=== PATIENT | male | born 1965 | race Caucasian/White ===

== ENCOUNTER 2018-12-24 11:56 | Emergency (ER) | payer MEDICAID, OTHER ==
[2018-12-24 12:31] VITALS: RESP 18
[2018-12-24] MEDS ORDERED: SODIUM CHLORIDE 0.9% 1,000 ML IV STA (12:56)
[2018-12-24 13:35] LABS: Basophils % (A) 1 %; Eosinophils # (A) 0.1 k/uL (0-0.7); Eosinophils % (A) 2 %; HCT 42.7 % (39.0-53.0); HGB 14.1 gm/dL (13.0-17.5); Lymphocytes # (A) 1.8 k/uL (1.0-4.8); Lymphocytes % (A) 25 %; MCH 29.2 pg (25.0-35.0); MCHC 32.9 g/dL (31.0-37.0); MCV 88.8 fL (80.0-100.0); Mean Platelet Volume 6.5; Monocytes # (A) 0.4 k/uL (0-1.0); Monocytes % (A) 5 %; Neutrophils # (A) 4.6 k/uL (1.3-7.7); Neutrophils % (A) 65 %; Platelet Count 390 k/uL (150-450); RBC 4.81 m/uL (4.30-5.90); WBC 7.1 k/uL (3.8-10.6)
--- NOTE | 2018-12-24 13:38 | XR ---
EXAMINATION TYPE: XR KUB DATE OF EXAM: 12/24/2018 CLINICAL DATA: 53-year-old male with upper abdominal pain, PH[facility] COMPARISON: None FINDINGS: Lung bases are clear. No evidence for free intraperitoneal air. No dilated small bowel or differential air-fluid levels. Prominent small bowel loop within the left u pper quadrant measuring up to 2.8 cm. Overall mild stool burden. No suspicious calcifications identified. IMPRESSION: 1. Nonobstructive bowel gas pattern. No evidence for free air. 2. A single borderline distended left upper quadrant small bowel loop may be transient or could refle ct a regional ileus or enteritis.
--- NOTE | 2018-12-24 13:47 | ED ---
Abdominal Pain HPI - General Chief Complaint: Abdominal Pain Stated Complaint: ABDOMINAL PAIN Time Seen by Provider: 12/24/18 12:27 Source: patient Mode of arrival: ambulatory Limitations: no limitations - History of Present Illness Initial Comments: Patient is a 53-year-old male presents emergency Department with left upper quadrant and right upper quadrant burning pain. Patient reports he developed a burning sensation that initially started in the left upper quadrant approximately 2 months ago so he went to the emergency room and was diagnosed wi th acid reflux and prescribed omeprazole. Patient also established care with a primary care physician who prescribed Pepcid. Patient reports taking both medication with minimal improvement. Patient reports occasionally the pain radiates to the right upper quadrant. Patient also reports intermittent left- sided lumbar pain. Patient reports the pain is not related to solid food or liquid intake. Patient denies fever or diarrhea but does report nausea and vomiting. Patient reports he has an appointment with a athletic coordinator in 2 weeks but states that he is unable to control the pain. Patient reports typically eats very late at night and does not sleep with the bed elevated. Patient reports occasionally taking ibuprofen to control the pain. Patient denies testicular pain, urinary or obstructive symptoms. - Related Data Home Medications Medication Instructions Recorded Confirmed Cimetidine [Tagamet] 200 mg PO BID 12/24/18 12/24/18 Famotidine [Pepcid] 20 mg PO BID 12/24/18 12/24/18 Ibuprofen [Motrin Ib] 400 mg PO Q8H PRN 12/24/18 12/24/18 Omeprazole 40 mg PO DAILY 12/24/18 12/24/18 Previous Rx's Medication Instructions Recorded Ondansetron Odt [Zofran Odt] 4 mg PO Q8HR PRN #10 tab 12/24/18 Allergies Allergy/AdvReac Type Severity Reaction Status Date / Time No Known Allergies Allergy Unverified 12/24/18 12:32 Review of Systems ROS Statement: Those systems with pertinent positive or pertinent negative responses have been documented in the HPI. ROS Other: All systems not noted in ROS Statement are negative. Past Medical History Past Medical History: GERD/Reflux History of Any Multi-Drug Resistant Organisms: None Reported Past Surgical History: No Surgical Hx Reported Past Psychological History: No Psychological Hx Reported Smoking Status: Current every day smoker Past Alcohol Use History: None Reported Past Drug Use History: Marijuana General Exam Limitations: no limitations General appearance: alert, in no apparent distress Head exam: Present: atraumatic, normocephalic, normal inspection Eye exam: Present: normal appearance, PERRL, EOMI Pupils: Present: normal accommodation ENT exam: Present: normal exam, mucous membranes moist, TM's normal bilaterally Neck exam: Present: normal inspection, full ROM Respiratory exam: Present: normal lung sounds bilaterally Cardiovascular Exam: Present: regular rate, normal rhythm, normal heart sounds GI/Abdominal exam: Present: soft, normal bowel sounds. Absent: distended, tende rness, guarding, rebound, other ( McBurney point tenderness, Mckenzie's sign, rebound tenderness, psoas or Rovsing sign.) Extremities exam: Present: normal inspection, full ROM Back exam: Present: normal inspection, full ROM, tenderness (Mild left). A bsent: CVA tenderness (R), CVA tenderness (L) Neurological exam: Present: alert, oriented X3 Psychiatric exam: Present: normal affect, normal mood Skin exam: Present: warm, intact, normal color Course Vital Signs 12/24/18 12/24/18 12:21 15:55 Temperature 97.4 F L 98.4 F Pulse Rate 94 91 Respiratory 18 18 Rate Blood Pressure 154/107 131/99 O2 Sat by Pulse 99 99 Oximetry Medical Decision Making - Medical Decision Making Patient is a 53-year-old male presents emergency Department with left and right upper quadrant burning sensation for 2 months. KUB is suggestive of a nonobstructive bowel gas pattern with no evidence of free air. A single borderline distended left upper quadrant bowel could represent an ileus or enteritis. CBC, CMP and UA are unremarkable. Patient was given a liter of fluids. Patient was given a GI cocktail and states that his symptoms improved over a short period of time. Based on the results of the GI cocktail I suspect the patient to have an underlying gastroenteric pathology. Patient advised to follow up with GI for further evaluation. Patient advised to keep that elevated at night and eat at least 3-4 hours prior to sleep. Patient advised not to eat fatty food, drinking coffee or alcohol. Patient was prescribed Zofran to control nausea. Patient advised to return to emergency department if symptoms worsen. Case was discussed with Dr. Coelho who also examined the patient and is in agreement with the treatment plan. - Lab Data Result diagrams: 12/24/18 13:15 12/24/18 13:15 Lab Results 12/24/18 12/24/18 12/24/18 Range/Units 13:15 13:15 14:52 WBC 7.1 (3.8-10.6) k/uL RBC 4.81 (4.30-5.90) m/uL Hgb 14.1 (13.0-17.5) gm/dL Hct 42.7 (39.0-53.0) % MCV 88.8 (80.0-100.0) fL MCH 29.2 (25.0-35.0) pg MCHC 32.9 (31.0-37.0) g/dL RDW 13.0 (11.5-15.5) % Plt Count 390 (150-450) k/uL Neutrophils % 65 % Lymphocytes % 25 % Monocytes % 5 % Eosinophils % 2 % Basophils % 1 % Neutrophils # 4.6 (1.3-7.7) k/uL Lymphocytes # 1.8 (1.0-4.8) k/uL Monocytes # 0.4 (0-1.0) k/uL Eosinophils # 0.1 (0-0.7) k/uL Basophils # 0.0 (0-0.2) k/uL Sodium 139 (137-145) mmol/L Potassium 4.6 (3.5-5.1) mmol/L Chloride 106 (98-107) mmol/L Carbon Dioxide 24 (22-30) mmol/L Anion Gap 9 mmol/L BUN 12 (9-20) mg/dL Creatinine 0.68 (0.66-1.25) mg/dL Est GFR (CKD-EPI)AfAm >90 (>60 ml/min/1.73 sqM) Est GFR (CKD-EPI)NonAf >90 (>60 ml/min/1.73 sqM) Glucose 100 H (74-99) mg/dL Calcium 9.9 (8.4-10.2) mg/dL Total Bilirubin 0.7 (0.2-1.3) mg/dL AST 16 L (17-59) U/L ALT 15 L (21-72) U/L Alkaline Phosphatase 102 (38-126) U/L Total Protein 7.8 (6.3-8.2) g/dL Albumin 4.6 (3.5-5.0) g/dL Amylase 81 (30-110) U/L Lipase 216 (23-300) U/L Urine Color Yellow Urine Appearance Clear (Clear) Urine pH 6.5 (5.0-8.0) Ur Specific Robinson 1.024 (1.001-1.035) Urine Protein Trace H (Negative) Urine Glucose (UA) Negative (Negative) Urine Ketones 1+ H (Negative) Urine Blood Negative (Negative) Urine Nitrite Negative (Negative) Urine Bilirubin Negative (Negative) Urine Urobilinogen <2.0 (<2.0) mg/dL Ur Leukocyte Esterase Negative (Negative) Disposition Clinical Impression: Abdominal pain Disposition: HOME SELF-CARE Condition: Stable Instructions (If sedation given, give patient instructions): Abdominal Pain (ED) Additional Instructions: Please take prescribed medication as directed. Please follow with a athletic coordinator. Please follow-up with primary care. Patient to emergency department if symptoms worsen. Prescriptions: Ondansetron Odt [Zofran Odt] 4 mg PO Q8HR PRN #10 tab PRN Reason: Nausea Is patient prescribed a controlled substance at d/c from ED?: No Referrals: Douglas Sánchez MD [Primary Care Provider] - 1-2 days Time of Disposition: 15:48
[2018-12-24 13:49] LABS: ALT 15 U/L (21-72); AST 16 U/L (17-59); African American GFR (CKD) >90 (>60 ml/min/1.73 sqM); Albumin 4.6 g/dL (3.5-5.0); Alkaline Phosphatase 102 U/L (38-126); Amylase 81 U/L (30-110); Anion Gap 9 mmol/L; Blood Urea Nitrogen 12 mg/dL (9-20); Calcium 9.9 mg/dL (8.4-10.2); Carbon Dioxide 24 mmol/L (22-30); Chloride 106 mmol/L (98-107); Glucose 100 mg/dL (74-99); Lipase 216 U/L (23-300); Potassium 4.6 mmol/L (3.5-5.1); Sodium 139 mmol/L (137-145); Total Bilirubin 0.7 mg/dL (0.2-1.3); Total Protein 7.8 g/dL (6.3-8.2)
[2018-12-24] MEDS ORDERED: MAG HYDROX/AL HYDROX/SIMETH 30 ML, HYOSCYAMINE ELIXIR 10 ML, CIMETIDINE HCL 300 MG, LID... PO STA ×4 (14:16)
[2018-12-24 15:03] LABS: Appearance,Urine Clear (Clear); Bilirubin,Urine Negative (Negative); Blood,Urine Negative (Negative); Color,Urine Yellow; Glucose,Urine (UA) Negative (Negative); Ketones,Urine 1+ (Negative); Leukocyte Esterase,Urine Negative (Negative); Nitrite,Urine Negative (Negative); PH, Urine 6.5 (5.0-8.0); Protein,Urine Trace (Negative); Specific Gravity,Urine 1.024 (1.001-1.035); Urobilinogen,Urine <2.0 mg/dL (<2.0)
[2018-12-24 15:56] VITALS: BP 131/99; PULSE 91; TEMP 98.4
== END 2018-12-24 15:56 | disposition home or self-care (01) ==
LOC: EC 11:56
DX: R10.11 Right upper quadrant pain (principal); R10.12 Left upper quadrant pain; M54.5 Low back pain; K21.9 Gastro-esophageal reflux disease without esophagitis; F17.200 Nicotine dependence, unspecified, uncomplicated; Z79.899 Other long term (current) drug therapy
CPT/HCPCS: 36415; 74018; 80053; 81003; 82150; 83690; 85025; 96360; 99284

== ENCOUNTER 2019-01-13 22:02 | Emergency (ER) | payer MEDICAID ==
[2019-01-13] MEDS ORDERED: IOPAMIDOL-300 CONTRAST 30 ML VIAL (ORAL USE) PO PRN (23:08)
[2019-01-13] MEDS ORDERED: MORPHINE SULFATE 4 MG/ML SYRINGE IV STA (23:08)
[2019-01-13] MEDS ORDERED: SODIUM CHLORIDE 0.9% 1,000 ML IV STA (23:08)
--- NOTE | 2019-01-13 23:18 | ED ---
Abdominal Pain HPI - General Chief Complaint: Abdominal Pain Stated Complaint: Abd pain Time Seen by Provider: 01/13/19 22:24 Source: patient, family Mode of arrival: ambulatory Limitations: no limitations - History of Present Illness Initial Comments: 's patient is a 53-year-old man who presents to be evaluated for abdominal pain. The patient states that his symptoms probably started around Easter with some mild intermittent upper abdominal or epigastric discomfort. He states that it did seem to affect his ability to eat. He was also having some intermittent nausea and occasional vomiting. The patient states that things eventually got bad enough that around 6 weeks ago he obtained a physician and was seen. He was started on omeprazole which didn't really improve his symptoms much, and he states he was given referral to food general manager but states that he has not been able to see that doctor yet. He subsequently went to [facility] where he had some lab tests sent and reportedly had a bedside ultrasound which was not remarkable. His nausea vomiting and abdominal pain worsened and he was seen here, where he had lab tests and then was to follow with the food general manager. He states that added Pepcid but that has not helped either area the patient also notes that he has lost about 30 pounds since the symptoms started bothering him. He indicates the epigastric and upper abdominal area. States the pain is like a fullness and occasionally burning. He does get nausea and states that he will have vomiting or dry heaves when he tries to take any oral intake, even water. She states that this is limited what he is able to eat and drink. Patient denies change in bowel movements other than stating that he is not go very frequently as she is not taking much. He now goes sometimes 3-4 days without bowel movement. He has not noted blood or tarry stools. Patient has not noted change in urination other than that it is darker. There is no pain into the scrotum or testicles. MD Complaint: abdominal pain -: month(s) Location: epigastric Radiation: back Migration to: no migration Severity: mild Quality: fullness, dull Consistency: constant Improves With: nothing Worsens With: eating Associated Symptoms: nausea, vomiting, anorexia - Related Data Home Medications Medication Instructions Recorded Confirmed Cimetidine [Tagamet] 200 mg PO BID PRN 12/24/18 01/13/19 Famotidine [Pepcid] 20 mg PO BID PRN 12/24/18 01/13/19 Acetaminophen Tab [Tylenol Tab] 1,000 mg PO Q6H PRN 01/13/19 01/13/19 Pantoprazole [Protonix] 40 mg PO BID 01/13/19 01/13/19 Allergies Allergy/AdvReac Type Severity Reaction Status Date / Time No Known Allergies Allergy Verified 01/13/19 22:35 Review of Systems ROS Statement: Those systems with pertinent positive or pertinent negative responses have been documented in the HPI. ROS Other: All systems not noted in ROS Statement are negative. Constitutional: Denies: fever, chills, weakness Respiratory: Denies: cough, dyspnea Cardiovascular: Denies: chest pain, palpitations, edema, syncope Gastrointestinal: Reports: as per HPI, abdominal pain, nausea, vomiting. Denies: diarrhea, constipation, hematemesis, melena, hematochezia Genitourinary: Denies: dysuria, hematuria, testicular pain, testicular mass Musculoskeletal: Denies: back pain Skin: Denies: rash Neurological: Denies: headache, weakness Past Medical History Past Medical History: GERD/Reflux History of Any Multi-Drug Resistant Organisms: None Reported Past Surgical History: No Surgical Hx Reported Past Psychological History: No Psychological Hx Reported Smoking Status: Current every day smoker Past Alcohol Use History: None Reported Past Drug Use History: Marijuana General Exam Limitations: no limitations General appearance: alert, in no apparent distress, cachectic Head exam: Present: atraumatic, normocephalic Eye exam: Present: normal appearance. Absent: scleral icterus, conjunctival injection ENT exam: Present: normal oropharynx Neck exam: Present: normal inspection Respiratory exam: Present: normal lung sounds bilaterally. Absent: respiratory distress, wheezes, rales, rhonchi, stridor Cardiovascular Exam: Present: regular rate, normal rhythm, normal heart sounds. Absent: systolic murmur, diastolic murmur, rubs, gallop GI/Abdominal exam: Present: soft. Absent: distended, tenderness, guarding, rebound, rigid, mass, pulsatile mass, hernia Extremities exam: Present: normal inspection, normal capillary refill. Absent: pedal edema, calf tenderness Back exam: Present: normal inspection. Absent: CVA tenderness (R), CVA tenderness (L) Neurological exam: Present: alert Skin exam: Present: warm, dry, intact, normal color. Absent: rash Course Vital Signs 01/13/19 01/14/19 01/14/19 22:10 04:03 07:01 Temperature 98.5 F 98.0 F 98.1 F Pulse Rate 100 88 78 Respiratory 22 18 18 Rate Blood Pressure 101/68 113/70 122/68 O2 Sat by Pulse 99 98 98 Oximetry Medical Decision Making - Medical Decision Making Patient's 53-year-old man with a number of months of abdominal pain and more recently of weight loss. He is also having vomiting. I did have inserts for malignancy and the patient workup does not reveal a definite malignancy though there are cystic masses to the adrenal glands bilaterally. I did discuss with the [facility] who were going to admit the patient. They did subsequently come and see the patient and it turns out that he has endoscopy scheduled in the coming week. They feel that he is safe to continue with the gastroenterology evaluation. He states it is unlikely that he would have scope performed over the weekend as it is given the holiday. I did provide some additional symptomatic relief for the patient - Lab Data Result diagrams: 01/13/19 22:24 01/13/19 22:24 Lab Results 01/13/19 01/13/19 Range/Units 22:24 22:24 WBC 9.4 (3.8-10.6) k/uL RBC 5.01 (4.30-5.90) m/uL Hgb 14.8 (13.0-17.5) gm/dL Hct 43.3 (39.0-53.0) % MCV 86.3 (80.0-100.0) fL MCH 29.5 (25.0-35.0) pg MCHC 34.1 (31.0-37.0) g/dL RDW 14.0 (11.5-15.5) % Plt Count 383 (150-450) k/uL Neutrophils % 68 % Lymphocytes % 23 % Monocytes % 5 % Eosinophils % 2 % Basophils % 1 % Neutrophils # 6.4 (1.3-7.7) k/uL Lymphocytes # 2.1 (1.0-4.8) k/uL Monocytes # 0.5 (0-1.0) k/uL Eosinophils # 0.2 (0-0.7) k/uL Basophils # 0.1 (0-0.2) k/uL Sodium 139 (137-145) mmol/L Potassium 5.1 (3.5-5.1) mmol/L Chloride 101 (98-107) mmol/L Carbon Dioxide 26 (22-30) mmol/L Anion Gap 12 mmol/L BUN 13 (9-20) mg/dL Creatinine 0.88 (0.66-1.25) mg/dL Est GFR (CKD-EPI)AfAm >90 (>60 ml/min/1.73 sqM) Est GFR (CKD-EPI)NonAf >90 (>60 ml/min/1.73 sqM) Glucose 107 H (74-99) mg/dL Calcium 10.5 H (8.4-10.2) mg/dL Total Bilirubin 0.7 (0.2-1.3) mg/dL AST 16 L (17-59) U/L ALT 13 L (21-72) U/L Alkaline Phosphatase 108 (38-126) U/L Total Protein 8.0 (6.3-8.2) g/dL Albumin 4.8 (3.5-5.0) g/dL Amylase 41 (30-110) U/L Lipase 48 (23-300) U/L Disposition Clinical Impression: Abdominal pain, Adrenal mass Disposition: HOME SELF-CARE Condition: Fair Instructions (If sedation given, give patient instructions): Acute Abdominal Pain (ED) Is patient prescribed a controlled substance at d/c from ED?: No Referrals: Douglas Sánchez MD [Primary Care Provider] - 1-2 days
[2019-01-13 23:19] LABS: Basophils # (A) 0.1 k/uL (0-0.2); Basophils % (A) 1 %; Eosinophils # (A) 0.2 k/uL (0-0.7); Eosinophils % (A) 2 %; HCT 43.3 % (39.0-53.0); HGB 14.8 gm/dL (13.0-17.5); Lymphocytes # (A) 2.1 k/uL (1.0-4.8); Lymphocytes % (A) 23 %; MCH 29.5 pg (25.0-35.0); MCHC 34.1 g/dL (31.0-37.0); MCV 86.3 fL (80.0-100.0); Mean Platelet Volume 7.2; Monocytes # (A) 0.5 k/uL (0-1.0); Monocytes % (A) 5 %; Neutrophils # (A) 6.4 k/uL (1.3-7.7); Neutrophils % (A) 68 %; Platelet Count 383 k/uL (150-450); RBC 5.01 m/uL (4.30-5.90); WBC 9.4 k/uL (3.8-10.6)
[2019-01-13] MEDS ORDERED: ONDANSETRON 4 MG/2 ML VIAL IVP STA (23:24)
[2019-01-13 23:30] LABS: ALT 13 U/L (21-72); AST 16 U/L (17-59); African American GFR (CKD) >90 (>60 ml/min/1.73 sqM); Albumin 4.8 g/dL (3.5-5.0); Alkaline Phosphatase 108 U/L (38-126); Amylase 41 U/L (30-110); Anion Gap 12 mmol/L; Blood Urea Nitrogen 13 mg/dL (9-20); Calcium 10.5 mg/dL (8.4-10.2); Carbon Dioxide 26 mmol/L (22-30); Chloride 101 mmol/L (98-107); Glucose 107 mg/dL (74-99); Lipase 48 U/L (23-300); Potassium 5.1 mmol/L (3.5-5.1); Sodium 139 mmol/L (137-145); Total Bilirubin 0.7 mg/dL (0.2-1.3)
--- NOTE | 2019-01-14 02:01 | CT ---
EXAM: CT Abdomen and Pelvis With Intravenous Contrast CLINICAL HISTORY: Abdominal pain. TECHNIQUE: Axial computed tomography images of the abdomen and pelvis with intravenous contrast. Coronal and sagittal reformatted images were created and reviewed. CTDI is 13.47 mGy and DLP is 614 mGy-cm. This CT exam was performed using one or more of the following dose reduction techniques: automated exposure control, adjustment of the mA and/or kV according to patient size, and/or use of iterative reconstruction technique. COMPARISON: No relevant prior studies available. FINDINGS: Lung bases: Unremarkable. No mass. No consolidation. ABDOMEN: Liver: Unremarkable. No mass. Gallbladder and bile ducts: Unremarkable. No radiopaque calculi. No biliary ductal dilation. Pancreas: Unremarkable. No ductal dilation. No mass. No adjacent inflammatory changes. Spleen: Unremarkable. No splenomegaly. Adrenals: Hypodense/cystic lesions involving the bilateral adrenal glands, measuring approximately 5 cm in greatest dimension on the right and 9 cm in greatest dimension on the left some periaortic/retroperitoneal extension on the left. Kidneys and ureters: Unremarkable. No hydronephrosis or ureteral calculus. No solid mass. Stomach and bowel: Unremarkable. No bowel obstruction. No significant bowel wall thickening. PELVIS: Appendix: No findings to suggest acute appendicitis. Bladder: Unremarkable. No mass or wall thickening. Reproductive: Unremarkable as visualized. ABDOMEN and PELVIS: Intraperitoneal space: Unremarkable. No free air. No significant fluid collection. Bones/joints: Osseous degenerative changes. No acute fractures. No dislocation. Soft tissues: Unremarkable. Vasculature: Atherosclerotic vascular disease. No abdominal aortic aneurysm. Lymph nodes: No significant lymphadenopathy. IMPRESSION: 1. No evidence of acute inflammatory or obstructive process in the abdomen or pelvis. 2. Hypodense/cystic lesions involving the bilateral adrenal glands, measuring approximately 5 cm on the right and 9 cm on the left. Findings may represent adrenal metastatic disease, sequela of adrenal hemorrhage, large adenomas or other etiologies. Recommend further workup with adrenal MRI.
[2019-01-14] MEDS ORDERED: MORPHINE SULFATE 4 MG/ML SYRINGE IV STA ×2 (03:39→06:41)
[2019-01-14 04:04] VITALS: RESP 18
[2019-01-14] MEDS ORDERED: MORPHINE SULFATE 4 MG/ML SYRINGE IV PRN (04:51)
[2019-01-14] MEDS ORDERED: NALOXONE 0.4 MG/ML 1 ML VIAL IV PRN (04:51)
[2019-01-14] MEDS ORDERED: ONDANSETRON 4 MG/2 ML VIAL IVP PRN (04:51)
[2019-01-14] MEDS ORDERED: ACETAMINOPHEN TAB 325 MG TAB PO PRN (04:51)
[2019-01-14] MEDS ORDERED: HYDROcodone/APAP 5-325MG 1 EACH TAB PO PRN (04:51)
[2019-01-14] MEDS ORDERED: SODIUM CHLORIDE 0.9% 1,000 ML IV SCH (05:00)
[2019-01-14 07:03] VITALS: BP 122/68; PULSE 78; TEMP 98.1
== END 2019-01-14 07:30 | disposition home or self-care (01) ==
LOC: EC 22:02 → 4SSUR 01-14 04:51 → UNDOADMOB 01-14 04:51 → EC 01-14 07:30
DX: E27.8 Other specified disorders of adrenal gland (principal); R11.2 Nausea with vomiting, unspecified; K21.9 Gastro-esophageal reflux disease without esophagitis; F17.200 Nicotine dependence, unspecified, uncomplicated; Z79.899 Other long term (current) drug therapy
CPT/HCPCS: 36415; 80053; 82150; 83690; 85025; 74177; 99284; 96374; 96375; 96376 ×2; 96361; J2270 ×2; J2405; Q9967

== ENCOUNTER 2019-01-20 11:01 | Day surgery (SDC) | payer MEDICAID ==
[~2019-01-20 11:01] MED LIST: LACTATED RINGERS 1,000 ML IV SCH; LIDOCAINE 1% 20 ML VIAL (10MG/ML) FOR IV START INTRADERMA PRN
[2019-01-20 11:39] VITALS: TEMP 98
[2019-01-20] MEDS ORDERED: LIDOCAINE 1% INJ 10MG/ML (20 ML MDV) ONE (12:24)
[2019-01-20] MEDS ORDERED: PROPOFOL 10 MG/ML 20 ML VIAL IV ONE (12:24)
[2019-01-20 13:02] VITALS: PULSE 78; RESP 18
--- NOTE | 2019-01-20 13:05 | P.PCN ---
Date of Procedure: 01/20/19 Description of Procedure: BRIEF HISTORY: 53-year-old male is seen for outpatient EGD. The patient had reported pain stomach and into his back for the past 2 months. Strength pain as sharp and burning in nature present every day with associated 35 pound weight loss. He would state symptoms of dry heaving in the morning. He had been started on omeprazole therapy but had been taking Pepcid when seen. He had also been taking ibuprofen up to 6 times daily for his back and stomach pain. Protonix 40 mg twice a day was ordered for the patient. He was scheduled for outpatient EGD for further evaluation. He does use tobacco and marijuana. History of colon cancer in his grandfather. PROCEDURE PERFORMED: Esophagogastroduodenoscopy with biopsy. PREOPERATIVE DIAGNOSIS: Epigastric abdominal pain, nausea. ESTIMATED BLOOD LOSS: Minimal. IV sedation per anesthesia. PROCEDURE: After informed consent was obtained, the patient was brought into the endoscopy unit. IV sedation was administered by Anesthesia under continuous monitoring. Initially the Olympus GIF-190 video endoscope was inserted into the mouth. Esophagus intubated without any difficulty. It was gradually advanced into the stomach and duodenum and carefully examined. The bulb and the second part of the duodenum appeared normal, with biopsies taken. The scope at this time was withdrawn to the stomach, adequately insufflated with air, and upon careful examination, mucosa of the antrum, body, cardia and the fundus appeared grossly normal, there was mild diffuse punctate erythema suggestive of mild gastritis with biopsies of the antrum and body taken. Small hiatal hernia was noted. The scope was then withdrawn into the esophagus. The GE junction was located at 37 cm from the incisors, biopsied. The esophagus appeared normal. There were no erosions or ulcerations seen and the patient tolerated the procedure well. IMPRESSION: 1. Mild gastritis antrum and body, biopsied. 2. GE junction biopsies. Duodenal biopsies. 3. Small hiatal hernia. RECOMMENDATIONS: The findings of this examination were discussed with the patient and his . Continue Protonix 40 mg twice a day. May benefit from trial of Bentyl 20 mg 3 times a day as needed for abdominal pain. Follow up with gastroenterology as previously scheduled. Await pathology from biopsies. Colonoscopy to be rescheduled as the patient was unable to prep. Patient will need follow-up imaging after computed tomography scan of the abdomen in the emergency department showed adrenal masses of unknown significance..
[2019-01-20 13:23] VITALS: BP 115/67
== END 2019-01-20 13:33 | disposition home or self-care (01) ==
LOC: ORWHC2ENDO 11:01
PROVIDERS: ATTEND Internal Medicine
DX: K21.0 Gastro-esophageal reflux disease with esophagitis (principal); K29.50 Unspecified chronic gastritis without bleeding; K44.9 Diaphragmatic hernia without obstruction or gangrene; Z80.0 Family history of malignant neoplasm of digestive organs; F17.210 Nicotine dependence, cigarettes, uncomplicated; Z79.899 Other long term (current) drug therapy; E27.9 Disorder of adrenal gland, unspecified
CPT/HCPCS: 88305; 43239; J2001; J2704

== ENCOUNTER → 2019-03-05 | Outpatient (CLI) | payer MEDICAID ==
--- NOTE | 2019-03-05 13:40 | CT ---
EXAMINATION TYPE: CT chest w con DATE OF EXAM: 03/05/2019 COMPARISON: CT abdomen 01/14/2019 HISTORY: Abnormal abd/pel ct. mets? CT DLP: 149 mGycm, Automated exposure control for dose reduction was used. CONTRAST: Performed injected with 100 mL of Isovue 300. TECHNIQUE: Axial images were obtained at 5 mm thick sections. Reconstructed images are reviewed on [employer] computer in the coronal plane. FINDINGS: Portion of the thyroid visualized is normal. Extensive emphysematous changes are present. Enlarged adenopathy is present in the hilar regions bilaterally. On the left this measures 1.7 cm an d 2.0 cm. On the right this measures 1.1 cm. In the left suprahilar region there is a spiculated mass measuring 2.5 cm. Within the posterior right apex there is a spiculated mass measuring 2.5 cm. These are suspicious for metastatic or primary bekah plasms. The ascending aorta diameter at the level of the main pulmonary artery is 3.3 cm. The main pulmonary artery diameter at the bifurcation is 2.[address] sections are obtained through the upper abdomen. The enlarged hypodense adrenal glands pre viously discussed are again evident. IMPRESSIONS: 1. 2 spiculated masses within the right apex and left suprahilar region suspicious for primary or met astatic lesions. 2. Enlarged mediastinal adenopathy suspicious for metastatic disease. 3. Reidentification of enlarged hypodense adrenal masses.
== END | disposition home or self-care (01) ==
LOC: RADCTMAIN 08:25
PROVIDERS: ATTEND Internal Medicine Hematology & Oncology
DX: R59.0 Localized enlarged lymph nodes (principal); D44.10 Neoplasm of uncertain behavior of unspecified adrenal gland; R11.0 Nausea
CPT/HCPCS: 71260; Q9967

== ENCOUNTER → 2019-03-05 | Outpatient (CLI) | payer MEDICAID ==
[2019-03-05 19:17] LABS: DHEA Sulfate 29.8 ug/dL (34.5-568.9)
[2019-03-05 19:27] LABS: ACTH 73.3 pg/mL (0.00-45.99)
[2019-03-10 19:36] LABS: Metanephrine, Free <25 pg/mL (< OR = 57); Normetanephrine, Free 89 pg/mL (< OR = 148); Total, Free (MN + NMN) 89 pg/mL (< OR = 205)
== END | disposition home or self-care (01) ==
LOC: LABWHC1 08:03
PROVIDERS: ATTEND Internal Medicine
DX: E27.9 Disorder of adrenal gland, unspecified (principal); D44.10 Neoplasm of uncertain behavior of unspecified adrenal gland; G89.3 Neoplasm related pain (acute) (chronic); Z71.3 Dietary counseling and surveillance
CPT/HCPCS: 36415; 82024; 82088; 82384; 82530; 82533; 82627; 83835; 84244

== ENCOUNTER 2019-03-17 08:46 | Day surgery (SDC) | payer MEDICAID ==
[2019-03-17 09:10] VITALS: TEMP 97.9
[2019-03-17] MEDS ORDERED: ALPRAZolam 0.5 MG TAB PO ONE (09:11)
[2019-03-17 09:18] LABS: Mean Platelet Volume 6.4; Platelet Count 422 k/uL (150-450)
[2019-03-17 09:31] LABS: Prothrombin Time 10.7 sec (9.0-12.0)
[2019-03-17] MEDS ORDERED: HYDROmorphone 0.5 MG/0.5 ML SYRINGE IVP STA (10:16)
--- NOTE | 2019-03-17 11:20 | CT ---
EXAMINATION TYPE: CT discontinued procedure DATE OF EXAM: 03/17/2019 COMPARISON: CT 03/05/2019, 01/14/2019 HISTORY: Left adrenal mass CT DLP: 790 mGycm The procedure is discussed with the patient, the risks, complications, benefits and alternatives, wer e discussed and any questions were answered. Informed consent was obtained. The patient is placed p dev on the CT table, prepped and draped in the usual sterile fashion. Patient had difficulty replicated in the degree of inspiration accurate placement of the needle could not be performed. Procedure was deferred.. All elements of maximal barrier technique were utilized. The patient remained stable throughout the procedure with no immediate postprocedural complication. IMPRESSION: 1. Discontinued CT procedure
[2019-03-17 15:33] VITALS: RESP 16
[2019-03-17 15:36] VITALS: BP 131/88; PULSE 87
== END 2019-03-17 15:00 | disposition home or self-care (01) ==
LOC: RADPROMAIN 08:46
PROVIDERS: ATTEND Internal Medicine Hematology & Oncology
DX: Z53.8 Procedure and treatment not carried out for other reasons (principal)
CPT/HCPCS: 86900; 86901; 85049; 85610; 86850; 76380; 60699; J1170; Q9967

== ENCOUNTER 2019-03-23 10:01 | Day surgery (SDC) | payer MEDICAID ==
[2019-03-22 11:56] VITALS: BMI 17.6
[~2019-03-23 10:01] MED LIST changes: +ALBUTEROL NEB (CONC) 2.5 MG/0.5 ML INHALATION ONE; +DEXAMETHASONE SOD PHOSPHATE 10 MG/ML 1 ML VIAL IV ONE; +HYDROmorphone 0.5 MG/0.5 ML SYRINGE IVP PRN; +LIDOCAINE 2% (PF) 20 MG/ML 5 ML VIAL INHALATION ONE; +LIDOCAINE VISCOUS 300 MG/15 ML CUP MUCOUS MEM ONE; +MIDAZOLAM 2 MG/2 ML VIAL IV PRN; +ONDANSETRON 4 MG/2 ML VIAL IVP ONE; +SCOPOLAMINE 1.5MG/72HR PATCH TRANSDERM ONE; +SODIUM CHLORIDE 0.9% 1,000 ML IV SCH
[2019-03-23 10:23] VITALS: RESP 16
--- NOTE | 2019-03-23 11:56 | CT ---
EXAMINATION TYPE: CT Chest denis Valle Protocol DATE OF EXAM: 03/23/2019 COMPARISON: 03/05/2019 HISTORY: 53-year-old male Bronchial navigation. TECHNIQUE: Contiguous axial scanning of the chest without IV contrast. Both inspiratory and expirator y scanning was performed for navigational purposes. Coronal and sagittal reconstructions performed. CT DLP: 633 mGycm Automated exposure control for dose reduction was used. FINDINGS: Heart normal size without pericardial effusion. Aorta is normal caliber and configuration to the aortic arch. Enlarged left AP window lymph node measures up to 1.8 cm. Left tracheobronchial angle lymph node rip ures 8 mm. Left suprahilar mass measures 2.5 cm contiguous with left hilar soft tissue, better deline ated on the 03/05/2019 contrast-enhanced CT. 3.0 cm spiculated right upper lobe mass. Suspect a 1 cm satellite nodule or bronchial lymph node in the right perihilar region. Biapical pleural-parenchymal scarring with moderate to advanced bullous emphysema in the upper lungs. No consolidation or pleural effusion. Visualized upper abdomen is very abnormally enlarged adrenal glands. Bones: No osseous destructive process. IMPRESSION: SCANNING FOR NAVIGATIONAL PURPOSES. KNOWN SPICULATED 2.5 CM LEFT SUPRAHILAR NODULE CONTIGUOUS WITH LE FT HILAR SOFT TISSUE AND LEFT AP WINDOW LYMPHADENOPATHY. NOTE 3.0 CM RIGHT UPPER LOBE SPICULATED MASS WITH EITHER A 1 CM SATELLITE NODULE OR BRONCHIAL LYMPH N ODE IN THE RIGHT PERIHILAR REGION. MODERATE TO ADVANCED BULLOUS EMPHYSEMA IN THE UPPER LUNGS. REDEMONSTRATED ABNORMALLY ENLARGED BILATERAL ADRENAL GLANDS.
[2019-03-23] MEDS ORDERED: fentaNYL (PF) 50 MCG/ML 2 ML AMP ONE (12:28)
[2019-03-23] MEDS ORDERED: MIDAZOLAM 2 MG/2 ML VIAL ONE (12:28)
[2019-03-23] MEDS ORDERED: GLYCOPYRROLATE 0.2 MG/ML 2 ML VIAL ONE (12:28)
[2019-03-23] MEDS ORDERED: LIDOCAINE 1% INJ 10MG/ML (20 ML MDV) ONE (12:28)
[2019-03-23] MEDS ORDERED: ROCURONIUM BROMIDE 10 MG/ML 10 ML VIAL IV ONE (12:28)
[2019-03-23] MEDS ORDERED: NEOSTIGMINE 1 MG/ML 10 ML VIAL ONE (12:28)
[2019-03-23] MEDS ORDERED: PROPOFOL 10 MG/ML 20 ML VIAL IV ONE (12:28)
[2019-03-23] MEDS ORDERED: IV FLUID CONTINUATION 1,000 ML IV ONE (12:40)
[2019-03-23 13:40] VITALS: TEMP 97.8
[2019-03-23 14:23] VITALS: BP 129/81; PULSE 66
--- NOTE | 2019-03-23 14:28 | XR ---
EXAMINATION TYPE: XR chest 1V portable DATE OF EXAM: 03/23/2019 COMPARISON: CT chest 03/23/2019 HISTORY: Status post lung biopsy TECHNIQUE: Single frontal view of the chest is obtained. FINDINGS: Left suprahilar mass, right apical mass are again noted. Apical emphysematous changes are present. No evident pneumothorax. Heart is small. No pleural effusion. Hyperinflation compatible with COPD. IMPRESSION: No evident complication status post lung biopsy.
--- NOTE | 2019-03-23 17:09 | P.PCN ---
Date of Procedure: 03/23/19 Preoperative Diagnosis: RUL mass, REX mass Postoperative Diagnosis: RUL mass, REX mass Procedure(s) Performed: navigation bronchoscopy, right upper lobe transbronchial biopsy, right upper lobe transbronchial needle aspirate,right upper lobe transbronchial brushing, left upper lobe transbronchial biopsy, left upper lobe transbronchial brushing, left upper lobe bronchioloalveolar lavage Anesthesia: GETA Surgeon: Deonna Jackson Estimated Blood Loss (ml): 0 Pathology: other Condition: stable Disposition: same day Operative Findings: this procedure was done under navigational guidance. The patient underwent a CAT scan using the [employer] protocol. The Vpad o the patient's chest. The CAT scan of the chest was reviewed. The right upper lobe mass in the left upper lobe masswas identified and mapped and appropriate trajectory to hose lesions were established. Following that, all this information were uploaded into a USB and then into the [employer] navigational tower. this procedure was done in the operating room. The patient was brought into the OR and the patient was intubated and placed on a mechanical ventilation in the usual fashion. The patient was intubated by #8 orotracheal tube. The intubation process was completed by DAY[employer] WORKER. After achieving adequate anesthesia, the was initiated. The flexible bronchoscope was introduced through an adapter into the orotracheal treatment was advanced into the lower trachea. The distal trachea was within normal limits. Bilateral mainstem bronchi were within normal limits. The right upper lobe bronchus was open and patent. The 3 segments of the right upper lobe were noted. The anterior and apical segments were patent and within normal limits. There was some endobronchial irregularities in one of the subsegments of the posterior lobe of the right upper lobe. The bronchus intermediusthe right middle lobe and right including left mainstem bronchus was within normal. The apical posterior segment of the left upper lobe had some endobronchial irregularities and narrowing. The rest of the segments in the left upper lobe was within normal limits including the lingular segment. Left lower lobe was normal limits. At this point, the bronchoscope was moved to the right upper lobe and under navigational guidance, transbronchial biopsy of the right upper lobe mass was done. Mass was approached without any major difficulties. Multiple biopsies were obtained. Endobronchial brushings and transbronchial needle aspirate of the right upper lobe mass was done. I also performed a bronchioloalveolar lavage of the right upper lobe where a total of 80 mL of fluid was infused and 20 mL was suctioned back. The bronchoscope was then moved to the left side where the left upper lobe mass was identified under navigational guidance andtransbronchial biopsies of the left upper lobe mass was done without any major difficulties. I also performed a transbronchial brushing of the left upper lobe and at the completion of the procedure have bronchioloalveolar lavage of the left upper lobe was done. A total of 80 d isease was infused and 20 mL was suctioned out. The aspirates and all of the biopsies were sent for cytologic and pathologic evaluation. No complications. Bronchoscope was removed. The patient was extubated and following that the patient was discharged home to be followed up in our office in a week's time to discuss the results of the biopsies.
== END 2019-03-23 14:40 | disposition home or self-care (01) ==
LOC: ORWHC2ENDO 10:01
PROVIDERS: ATTEND Internal Medicine Critical Care Medicine
DX: C34.11 Malignant neoplasm of upper lobe, right bronchus or lung (principal); F17.210 Nicotine dependence, cigarettes, uncomplicated; I10 Essential (primary) hypertension; R07.9 Chest pain, unspecified; Z79.891 Long term (current) use of opiate analgesic; Z79.899 Other long term (current) drug therapy; E27.9 Disorder of adrenal gland, unspecified; Z80.0 Family history of malignant neoplasm of digestive organs; Z80.41 Family history of malignant neoplasm of ovary; Z80.3 Family history of malignant neoplasm of breast
CPT/HCPCS: 31628; 93005; 88104; 88108; 88305; 88173; 88342; 88341; 71045; 71250; 31632; 31623; 31624; 31627; J2250; J2710; J2405; J2001; J3010; J2704; 31625; 31629

== ENCOUNTER → 2019-04-15 | Outpatient (CLI) | payer MEDICAID ==
--- NOTE | 2019-04-15 15:08 | US ---
EXAMINATION TYPE: US venous doppler duplex LE LT DATE OF EXAM: 04/15/2019 2:49 PM COMPARISON: NONE CLINICAL HISTORY: R22.42 Swelling L lower. Numbness left leg, recently diagnosed with lung cancer, fi rst round of Chemo was yesterday SIDE PERFORMED: Left TECHNIQUE: The lower extremity deep venous system is examined utilizing real time linear array sonog min with graded compression, doppler sonography and color-flow sonography. VESSELS IMAGED: External Iliac Vein (EIV) Common Femoral Vein Deep Femoral Vein Greater Saphenous Vein * Femoral Vein Popliteal Vein Small Saphenous Vein * Proximal Calf Veins (* superficial vessels) Left Leg: No evidence of DVT as visualized IMPRESSION: 1. Left lower extremity ultrasound negative for deep venous thrombosis
== END | disposition home or self-care (01) ==
LOC: RADUSWWP 14:24
PROVIDERS: ATTEND Internal Medicine Hematology & Oncology
DX: R22.42 Localized swelling, mass and lump, left lower limb (principal)

== ENCOUNTER 2019-04-19 15:11 | Inpatient (IN) | payer MEDICAID ==
[2019-04-19] MEDS ORDERED: SODIUM CHLORIDE 0.9% 2,000 ML IV STA (15:39)
[2019-04-19] MEDS ORDERED: diphenhydrAMINE 50 MG/ML 1 ML VIAL IVP STA (15:39)
[2019-04-19] MEDS ORDERED: METOCLOPRAMIDE 5 MG/ML 2 ML VIAL IVP STA (15:39)
--- NOTE | 2019-04-19 16:26 | ED ---
Abdominal Pain HPI - General Chief Complaint: Abdominal Pain Stated Complaint: abdominal pain, nausea, Ca patient Time Seen by Provider: 04/19/19 15:26 Source: patient, RN notes reviewed Mode of arrival: ambulatory Limitations: no limitations - History of Present Illness Initial Comments: This a 53-year-old male presents emergency Department chief complaint of dehydration, nausea vomiting. 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 Patient had the first dose states she's had extreme nausea and vomiting or sense. He has not kept anything down since. Patient had extreme weight loss and increased lethargy. Patient does have pain towards his back which is chronic and not worsened usual. Patient has not taken anything today for the pain. He denies any current chest pain he always has chronic shortness of breath not worsened usual. No noted fevers. - Related Data Home Medications Medication Instructions Recorded Confirmed Dicyclomine [Bentyl] 20 mg PO Q8HR PRN 03/09/19 03/23/19 HYDROcodone/APAP 7.5-325MG [[place] 1 tab PO Q5H PRN 03/09/19 03/23/19 7.5-325] Allergies Allergy/AdvReac Type Severity Reaction Status Date / Time No Known Allergies Allergy Verified 04/19/19 15:16 Review of Systems ROS Statement: Those systems with pertinent positive or pertinent negative responses have been documented in the HPI. ROS Other: All systems not noted in ROS Statement are negative. Past Medical History Past Medical History: Cancer, GERD/Reflux Additional Past Medical History / Comment(s): adrenal mass X 2 History of Any Multi-Drug Resistant Organisms: None Reported Past Surgical History: Hernia Repair Additional Past Surgical History / Comment(s): left thumb re-attached Past Anesthesia/Blood Transfusion Reactions: No Reported Reaction Past Psychological History: No Psychological Hx Reported Smoking Status: Current every day smoker Past Alcohol Use History: None Reported Past Drug Use History: Marijuana - Past Family History Father Family Medical History: Coronary Artery Disease (CAD) General Exam Limitations: no limitations General appearance: alert, in no apparent distress, cachectic Head exam: Present: atraumatic, normocephalic, normal inspection Eye exam: Present: normal appearance, PERRL, EOMI. Absent: scleral icterus, conjunctival injection, periorbital swelling ENT exam: Present: normal exam, normal oropharynx, mucous membranes moist Neck exam: Present: normal inspection, full ROM. Absent: tenderness, meningismus, lymphadenopathy Respiratory exam: Present: wheezes. Absent: normal lung sounds bilaterally, respiratory distress, rales, rhonchi, stridor Cardiovascular Exam: Present: normal rhythm, tachycardia, normal heart sounds. Absent: systolic murmur, diastolic murmur, rubs, gallop, clicks GI/Abdominal exam: Present: soft, normal bowel sounds. Absent: distended, tenderness, guarding, rebound, rigid Neurological exam: Present: alert, oriented X3 Skin exam: Present: warm, dry, intact, normal color. Absent: rash Course Vital Signs 04/19/19 04/19/19 04/19/19 15:13 15:20 15:30 Temperature 97.5 F L Pulse Rate 140 H 116 H Respiratory 26 H 43 H 30 H Rate Blood Pressure 129/82 145/99 O2 Sat by Pulse 99 Oximetry 04/19/19 04/19/19 04/19/19 16:00 16:30 17:00 Temperature Pulse Rate 113 H Respiratory 23 Rate Blood Pressure 132/100 O2 Sat by Pulse 96 98 Oximetry 04/19/19 04/19/19 17:30 17:42 Temperature Pulse Rate 108 H 108 H Respiratory 12 12 Rate Blood Pressure 136/117 136/117 O2 Sat by Pulse 98 98 Oximetry Medical Decision Making - Medical Decision Making Patient had labs and urinalysis patient probably dehydrated, hyponatremic secondary to chemotherapy was given IV hydration, antiemetics slightly improved though still remains tachycardic. Patient will be admitted IV hydration, pain control, nausea control - Lab Data Result diagrams: 04/19/19 16:27 04/19/19 16:27 Lab Results 04/19/19 04/19/19 04/19/19 Range/Units 16:27 16:27 16:27 WBC 11.1 H (3.8-10.6) k/uL RBC 4.44 (4.30-5.90) m/uL Hgb 12.9 L (13.0-17.5) gm/dL Hct 40.2 (39.0-53.0) % MCV 90.6 (80.0-100.0) fL MCH 29.0 (25.0-35.0) pg MCHC 32.0 (31.0-37.0) g/dL RDW 12.7 (11.5-15.5) % Plt Count 566 H (150-450) k/uL Neutrophils % 89 % Lymphocytes % 6 % Monocytes % 2 % Eosinophils % 1 % Basophils % 1 % Neutrophils # 9.8 H (1.3-7.7) k/uL Lymphocytes # 0.6 L (1.0-4.8) k/uL Monocytes # 0.3 (0-1.0) k/uL Eosinophils # 0.1 (0-0.7) k/uL Basophils # 0.1 (0-0.2) k/uL Sodium 127 L (137-145) mmol/L Potassium 5.0 (3.5-5.1) mmol/L Chloride 89 L (98-107) mmol/L Carbon Dioxide 23 (22-30) mmol/L Anion Gap 15 mmol/L BUN 16 (9-20) mg/dL Creatinine 0.46 L (0.66-1.25) mg/dL Est GFR (CKD-EPI)AfAm >90 (>60 ml/min/1.73 sqM) Est GFR (CKD-EPI)NonAf >90 (>60 ml/min/1.73 sqM) Glucose 126 H (74-99) mg/dL Plasma Lactic Acid David 1.5 (0.7-2.0) mmol/L Calcium 9.6 (8.4-10.2) mg/dL Magnesium 1.9 (1.6-2.3) mg/dL Total Bilirubin 1.5 H (0.2-1.3) mg/dL AST 23 (17-59) U/L ALT 9 L (21-72) U/L Alkaline Phosphatase 184 H (38-126) U/L Total Protein 7.4 (6.3-8.2) g/dL Albumin 3.9 (3.5-5.0) g/dL Amylase 44 (30-110) U/L Lipase 30 (23-300) U/L Disposition Clinical Impression: Intractable nausea and vomiting, Dehydration, Hyponatremia, Metastatic primary lung cancer Disposition: ADMITTED IP TO THIS HOSP Condition: Fair Referrals: Douglas Sánchez MD [Primary Care Provider] - 1-2 days
[2019-04-19 16:39] LABS: Basophils # (A) 0.1 k/uL (0-0.2); Basophils % (A) 1 %; Eosinophils # (A) 0.1 k/uL (0-0.7); Eosinophils % (A) 1 %; HCT 40.2 % (39.0-53.0); HGB 12.9 gm/dL (13.0-17.5); Lymphocytes # (A) 0.6 k/uL (1.0-4.8); Lymphocytes % (A) 6 %; MCV 90.6 fL (80.0-100.0); Mean Platelet Volume 6.7; Monocytes # (A) 0.3 k/uL (0-1.0); Monocytes % (A) 2 %; Neutrophils # (A) 9.8 k/uL (1.3-7.7); Neutrophils % (A) 89 %; Platelet Count 566 k/uL (150-450); RBC 4.44 m/uL (4.30-5.90); RDW 12.7 % (11.5-15.5); WBC 11.1 k/uL (3.8-10.6)
[2019-04-19 16:51] LABS: ALT 9 U/L (21-72); AST 23 U/L (17-59); African American GFR (CKD) >90 (>60 ml/min/1.73 sqM); Albumin 3.9 g/dL (3.5-5.0); Alkaline Phosphatase 184 U/L (38-126); Amylase 44 U/L (30-110); Anion Gap 15 mmol/L; Blood Urea Nitrogen 16 mg/dL (9-20); Calcium 9.6 mg/dL (8.4-10.2); Carbon Dioxide 23 mmol/L (22-30); Chloride 89 mmol/L (98-107); Glucose 126 mg/dL (74-99); Magnesium 1.9 mg/dL (1.6-2.3); Sodium 127 mmol/L (137-145); Total Bilirubin 1.5 mg/dL (0.2-1.3); Total Protein 7.4 g/dL (6.3-8.2)
[2019-04-19] MEDS ORDERED: NALOXONE 0.4 MG/ML 1 ML VIAL IV PRN (18:37)
[2019-04-19] MEDS ORDERED: HYDROmorphone 0.5 MG/0.5 ML SYRINGE IVP PRN (18:37)
[2019-04-19] MEDS: SODIUM CHLORIDE 0.9% 1,000 ML IV SCH (19:13)
[2019-04-19] MEDS: HYDROmorphone 1 MG/ML 1 ML SYRINGE IVP PRN (23:10)
[2019-04-19] MEDS: ONDANSETRON 4 MG/2 ML VIAL IVP PRN (23:10)
[2019-04-20] MEDS: SODIUM CHLORIDE 0.9% 1,000 ML IV SCH ×3 (03:47→23:46)
[2019-04-20] MEDS: HYDROmorphone 1 MG/ML 1 ML SYRINGE IVP PRN ×2 (03:47→09:40)
[2019-04-20] MEDS: ONDANSETRON 4 MG/2 ML VIAL IVP PRN (09:37)
[2019-04-20 11:25] LABS: T4, Free (Free Thyroxine) 1.76 ng/dL (0.78-2.19)
[2019-04-20 11:32] VITALS: BMI 16.0
[2019-04-20] MEDS ORDERED: TEMAZEPAM 15 MG CAP PO PRN (14:17)
[2019-04-20] MEDS: HYDROcodone/APAP 5-325MG 1 EACH TAB PO PRN ×2 (15:08→21:49)
--- NOTE | 2019-04-20 15:08 | P.CONS ---
History of Present Illness - Reason for Consult Consult date: 04/20/19 metastatic NSCLC Requesting physician: Benedict Clemons - Chief Complaint intractable nausea, vomiting, resultant dehydration - History of Present Illness Mr. Posey is a very pleasant male pt of Dr. Lopez who presented in late December 2018 with c/o progressive back pain radiating across his abdomen, 5 months duration, CT AP 01/14/19 revealed very large bilateral adrenal masses, 5cm on the right and 9cm on the left. MRI 02/23/19 had suspicious enhancement in both large adrenal glands. He was scheduled for biopsy but, unfortunately was unable to be completed as he had bleeding around kidney and he could not cooperate with the procedure. He was then scheduled with Dr. Jackson for bronch and biopsy which was done on 03/23/19. Transbronchial biopsies of RUL and REX lesions were positive for poorly differentiated carcinoma, non small cell, consistent with lung origin, difficult to determine if it was adeno or squamous since it was very poorly differentiated. Dr. Lopez discussed with Dr. Hahn and he favored adenocarcinima. Pt was positive for fatigue, excessive tiredness, pain needed control, no appetite, positive for unintentional 50-60 pound wt. loss over the last [address] Lopez met with pt for 1st time 03/01. They discussed stage IV NSCLC, very poorly differentiated, difficult to determine squamous vs non squamous based on current specimen,however, adeno is favored. It was recommend a regimen of chemo/immunotherapy which is acceptable for squamous and non squamous, carboplatin/taxol/tecentriq. It was also discussed possible palliative XRT to adrenal masses for pain control, however, the pain was better and that is on hold. Pt had 1st cycle on 04/14, pt states he ate really well day of treatment but, the next day he lost his appetite, stopped eating, then began having dry heaves and could not even tolerate water. He became weaker and came to ER as he was even getting lethargic. He was previously constipated but last few days the stool have been very soft, no mention of watery diarrhea, BRBPR or rectal pain, no fever, dysphagia, epigastric area is tender from dry heaves, no HOOD, hemoptysis, abd bloating, rash, bleeding, neuro c/o, pt back pain is actually better then it was prior to treatment. He is only feeling a little better today. Review of Systems 14 point ROS is negative except as stated in HPI Past Medical History Past Medical History: Cancer, GERD/Reflux Additional Past Medical History / Comment(s): adrenal mass X 2 History of Any Multi-Drug Resistant Organisms: None Reported Past Surgical History: Hernia Repair Additional Past Surgical History / Comment(s): left thumb re-attached Past Anesthesia/Blood Transfusion Reactions: No Reported Reaction Past Psychological History: No Psychological Hx Reported Smoking Status: Current some day smoker Past Alcohol Use History: None Reported Additional Past Alcohol Use History / Comment(s): started smoking at age 17,1ppd Past Drug Use History: Marijuana Additional Drug Use History / Comment(s): uses marijuana every 2 days, - Past Family History Father Family Medical History: Coronary Artery Disease (CAD) Medications and Allergies Home Medications Medication Instructions Recorded Confirmed Type Hydrocodone/Acetaminophen [[place] 1 tab PO Q6H PRN 04/19/19 04/19/19 History 10-325] Morphine Sulfate ER [Ms Contin] 15 mg PO Q12HR PRN 04/19/19 04/19/19 History Prochlorperazine [Compazine] 10 mg PO Q6H PRN 04/19/19 04/19/19 History Allergies Allergy/AdvReac Type Severity Reaction Status Date / Time No Known Allergies Allergy Verified 04/19/19 19:07 Physical Exam Vitals: Vital Signs Temp Pulse Pulse Resp BP BP Pulse Ox 04/20/19 11:31 97.9 F 90 15 124/85 98 04/20/19 05:00 98.5 F 110 H 16 106/74 97 04/20/19 00:00 18 04/19/19 21:42 117 H 18 130/100 98 04/19/19 20:30 105 H 17 159/99 99 04/19/19 19:15 99.3 F 111 H 17 123/96 97 04/19/19 17:42 108 H 12 136/117 98 04/19/19 17:30 108 H 12 136/117 98 04/19/19 17:00 113 H 23 04/19/19 16:30 98 04/19/19 16:00 132/100 96 04/19/19 15:30 116 H 30 H 145/99 04/19/19 15:20 43 H 04/19/19 15:13 97.5 F L 140 H 26 H 129/82 99 Intake and Output 04/19/19 04/20/19 04/20/19 22:59 06:59 14:59 Intake Total 600 Balance 600 Intake: Intake, IV Titration 600 Amount Sodium Chloride 0.9% 1, 600 000 ml @ 100 mls/hr IV . Q10H [facility] Rx#:[id number] Other: Voiding Method Toilet Toilet Toilet # Bowel Movements 2 Weight 50.802 kg 50.802 kg - Constitutional frail, cachetic, muscle wasting General appearance: cooperative, no acute distress, thin - EENT Eyes: anicteric sclerae, EOMI ENT: hearing grossly normal, normal oropharynx - Neck Neck: no lymphadenopathy - Respiratory Respiratory: bilateral: CTA, diminished - Cardiovascular Rhythm: regular Heart sounds: normal: S1, S2 Abnormal Heart Sounds: no systolic murmur, no diastolic murmur, no rub, no S3 Gallop, no S4 Gallop, no click, no other leg Peripheral Edema: bilateral: None - Gastrointestinal General gastrointestinal: no absent bowel sounds, no decreased bowel sounds, no distended, no hepatomegaly, no hyperactive bowel sounds, normal bowel sounds, no organomegaly, no rigid, scaphoid, soft, no splenomegaly, no tenderness, no umbilical hernia, no ventral hernia - Integumentary Integumentary: decreased turgor - Neurologic Neurologic: CNII-XII intact - Musculoskeletal Musculoskeletal: generalized weakness, strength equal bilaterally - Psychiatric Psychiatric: A&O x's 3, appropriate affect, intact judgment & insight Results CBC & Chem 7: 04/19/19 16:27 04/19/19 16:27 Labs: Abnormal Lab Results - Last 24 Hours (Table) 04/19/19 04/19/19 04/20/19 Range/Units 16:27 16:27 10:40 WBC 11.1 H (3.8-10.6) k/uL Hgb 12.9 L (13.0-17.5) gm/dL Plt Count 566 H (150-450) k/uL Neutrophils # 9.8 H (1.3-7.7) k/uL Lymphocytes # 0.6 L (1.0-4.8) k/uL Sodium 127 L (137-145) mmol/L Chloride 89 L (98-107) mmol/L Creatinine 0.46 L (0.66-1.25) mg/dL Glucose 126 H (74-99) mg/dL Osmolality 259 L (280-301) mosm/kg Total Bilirubin 1.5 H (0.2-1.3) mg/dL ALT 9 L (21-72) U/L Alkaline Phosphatase 184 H (38-126) U/L Free T3 pg/mL 2.1 L (2.8-5.3) pg/ml Assessment and Plan (1) Intractable nausea and vomiting Narrative/Plan: Antiemetics, antacids, clear liquids for now. Current Visit: Yes Status: Acute Priority: High Code(s): R11.2 - NAUSEA WITH VOMITING, UNSPECIFIED SNOMED Code(s): 509689968 (2) Dehydration Narrative/Plan: Cont hydration. Encouraged him to consume as much of the clear liquid diet that he can. Electrolyte monitoring and replacement PRN Current Visit: Yes Status: Acute Priority: High Code(s): E86.0 - DEHYDRATION SNOMED Code(s): 10544686 (3) Hyponatremia Narrative/Plan: Low normal 1 mo ago in office. Cont NS hydration, monitor. Current Visit: Yes Status: Acute Priority: High Code(s): E87.1 - HYPO- OSMOLALITY AND HYPONATREMIA SNOMED Code(s): 00994909 (4) Metastatic primary lung cancer Narrative/Plan: NSCLC, poorly differentiated, unable to discern between squamous/non-squamous subtype. S/P 1st carbo/taxol/tecentriq. Chemo blossom expected in the next 3-5 days. CBC ok at this time. SE r/t [id number], no large dose steroids going to be initiated at this time. Thyroid and cortisol ordered (common SE of immunotherpay) Pt has had improvement in his back pain s/p treatment. Anticipate subjective response to treatment. Will work with IM to get symptoms managed. Dietitian to help optimize and improve nutritional status. Would want pt to have treatment again if symptoms can be managed. Pt and agree with plan Current Visit: Yes Status: Acute Priority: High Code(s): C34.90 - MALIGNANT NEOPLASM OF UNSP PART OF UNSP BRONCHUS OR LUNG SNOMED Code(s): 25095261 (5) Anorexia Narrative/Plan: Poor appetite, significant wt. loss in short period of time. Dietitian consulted. Pt stated increased appetite with steroid, will order a low dose. PPI ordered. Current Visit: Yes Status: Acute Priority: High Code(s): R63.0 - ANOREXIA SNOMED Code(s): 82697954 Plan: Soft stool-hold stool softeners for now, close I&O monitoring. Doctor attests: I performed a history and physical examination of this patient, developed impression and plan of care, discussed with dictator. I agree with dictators note, documented as a scribe.
--- NOTE | 2019-04-20 15:34 | XR ---
EXAMINATION TYPE: XR chest 1V portable DATE OF EXAM: 04/20/2019 COMPARISON: Prior chest x-ray 03/23/2019 HISTORY: Pneumonia, lung cancer or graph TECHNIQUE: Single frontal view of the chest is obtained. FINDINGS: There is airspace disease involving the right upper lobe which has progressed compared to previous exam. Question underlying bullous disease in the upper lobes. Patient's underlying lung mass es are obscured, patient is rotated. Emphysematous changes are present. Heart size is normal. No pleu ral effusion. No pneumothorax. IMPRESSION: Patient with known lung masses, lung carcinoma. Correlate for pneumonia.
[2019-04-20] MEDS: MEGESTROL 400 MG/10 ML CUP PO SCH (16:48)
[2019-04-20 16:58] LABS: Glucose,Whole Blood 106 mg/dL (75-99)
--- NOTE | 2019-04-20 17:40 | HP ---
HISTORY AND PHYSICAL DATE OF SERVICE: 04/20/2019 CHIEF COMPLAINT: Abdominal pain, nausea and vomiting. HISTORY OF PRESENT ILLNESS: This 53-year-old gentleman with a past medical history of multiple medical problems including recently diagnosed lung cancer, poorly differentiated non-small cell lung cancer, was receiving chemotherapy from Dr. Padilla. The patient is complaining of severe nausea, inability to eat and severe dehydration weakness and the patient came to [facility] and admitted to the hospital for further evaluation and treatment. The patient also had metastatic adrenals. There is no history of fever, rigors or chills. No history of headache, loss of consciousness or seizures at this time. PAST MEDICAL HISTORY: History of GERD, history of adrenal mass, history of nicotine dependence. MEDICATIONS: Prior to admission include home medications are: 1. Compazine 10 mg q.6h p.r.n. 2. [place] 10 mg q.6h p.r.n. 3. MS Contin 50 mg p.o. b.i.d. ALLERGIES: None. FAMILY HISTORY: History of coronary artery disease in the family. SOCIAL HISTORY: History of continued smoking, history of THC. REVIEW OF SYSTEMS: ENT: No diminished vision. No diminished hearing. CARDIOVASCULAR: No angina or palpitations. RESPIRATION: No cough. GI as mentioned earlier. no dysuria. NERVOUS SYSTEM: As mentioned earlier. ALLERGY/IMMUNOLOGY: No asthma or hayfever. MUSCULOSKELETAL: As mentioned earlier. HEMATOLOGY/ONCOLOGY: No anemia. ENDOCRINE: As mentioned earlier. CONSTITUTIONAL: As mentioned earlier. DERMATOLOGY: Mentioned earlier. RHEUMATOLOGY: Negative. PSYCHIATRY as mentioned earlier. PHYSICAL EXAM: Patient is alert, oriented x3. The pulse is 110. Blood pressure 106/75, respirations 16, temperature 98.4, pulse ox 97% on room air. HEENT: Conjunctivae normal. NECK: No JVD. CARDIOVASCULAR: S1, S2 muffled. RESPIRATORY: Breath sounds diminished in the bases. A few rhonchi. No crackles. ABDOMEN: Soft, scaphoid, nontender. LEGS are: No edema. No swelling. CENTRAL NERVOUS SYSTEM: Diffusely weak and emaciated. LABS: WBC 11.2, hemoglobin 12.2, sodium 137, potassium 5. Random cortisol is 24, sodium is 127. Other labs are noted. ASSESSMENT: 1. Intractable nausea and vomiting, possible acute gastritis possibly chemotherapy induced. 2. History of right upper lobe, poorly differentiated non-small cell lung cancer, on chemo. 3. Increased WBC. 4. Anemia, secondary to malignancy. 5. Hyponatremia. 6. Increased random blood sugar. 7. History of gastroesophageal reflux disease. 8. History of adrenal mass. 9. History of nicotine dependence, continued ongoing. 10.History of THC. RECOMMENDATIONS AND DISCUSSION: This 53-year-old gentleman admitted with multiple medical issues, we will monitor the patient closely, continue the current medications, symptomatic treatment. IV fluids, Megace, repeat labs, serum cortisol is normal. I would recommend a cosyntropin stimulation test. Resume the rest of the home medications. Prognosis guarded because of multiple complex medical issues. Further recommendations to follow. MMODL / IJN: [id number] /
[2019-04-20] MEDS: INSULIN ASPART (NovoLOG) 100 UNIT/ML VIAL SQ SCH ×2 (18:08→21:49)
[2019-04-20] MEDS: METOCLOPRAMIDE 5 MG/ML 2 ML VIAL IVP SCH (19:12)
[2019-04-20 19:49] LABS: Glucose,Whole Blood 103 mg/dL (75-99)
[2019-04-20] MEDS: HEPARIN SODIUM,PORCINE 5,000 UNIT/ML 1 ML VIAL SQ SCH (21:51)
[2019-04-21] MEDS: ONDANSETRON 4 MG/2 ML VIAL IVP PRN (03:20)
[2019-04-21] MEDS: ALPRAZolam 0.25 MG TAB PO PRN ×2 (03:29→20:08)
[2019-04-21 04:04] LABS: Appearance,Urine Clear (Clear); Bilirubin,Urine Negative (Negative); Blood,Urine Negative (Negative); Color,Urine Yellow; Glucose,Urine (UA) Negative (Negative); Ketones,Urine 1+ (Negative); Leukocyte Esterase,Urine Negative (Negative); Nitrite,Urine Negative (Negative); Protein,Urine Negative (Negative); Specific Gravity,Urine 1.019 (1.001-1.035)
[2019-04-21] MEDS: HYDROcodone/APAP 5-325MG 1 EACH TAB PO PRN ×3 (04:45→15:54)
[2019-04-21 06:58] LABS: Glucose,Whole Blood 96 mg/dL (75-99)
[2019-04-21] MEDS ORDERED: COSYNTROPIN 0.25 MG VIAL IVP ONE (08:00)
[2019-04-21] MEDS: SODIUM CHLORIDE 0.9% 1,000 ML IV SCH ×2 (08:09→19:12)
[2019-04-21] MEDS: INSULIN ASPART (NovoLOG) 100 UNIT/ML VIAL SQ SCH ×4 (08:09→20:22)
[2019-04-21] MEDS: MEGESTROL 400 MG/10 ML CUP PO SCH (08:09)
[2019-04-21] MEDS: HEPARIN SODIUM,PORCINE 5,000 UNIT/ML 1 ML VIAL SQ SCH ×2 (08:14→20:09)
[2019-04-21 08:15] LABS: Basophils % (A) 0 %; Eosinophils % (A) 1 %; HCT 30.7 % (39.0-53.0); HGB 10.1 gm/dL (13.0-17.5); Lymphocytes # (A) 0.6 k/uL (1.0-4.8); Lymphocytes % (A) 11 %; MCH 29.8 pg (25.0-35.0); MCHC 32.7 g/dL (31.0-37.0); Mean Platelet Volume 6.5; Monocytes # (A) 0.4 k/uL (0-1.0); Monocytes % (A) 6 %; Neutrophils # (A) 4.7 k/uL (1.3-7.7); Neutrophils % (A) 81 %; Platelet Count 383 k/uL (150-450); RBC 3.37 m/uL (4.30-5.90); WBC 5.8 k/uL (3.8-10.6)
[2019-04-21] MEDS: METOCLOPRAMIDE 5 MG/ML 2 ML VIAL IVP SCH ×3 (08:15→19:12)
[2019-04-21] MEDS: NICOTINE 14MG/24HR PATCH TRANSDERM SCH (08:15)
[2019-04-21 08:30] LABS: African American GFR (CKD) >90 (>60 ml/min/1.73 sqM); Anion Gap 10 mmol/L; Blood Urea Nitrogen 8 mg/dL (9-20); Calcium 8.3 mg/dL (8.4-10.2); Carbon Dioxide 21 mmol/L (22-30); Chloride 97 mmol/L (98-107); Glucose 82 mg/dL (74-99); Potassium 3.8 mmol/L (3.5-5.1); Sodium 128 mmol/L (137-145)
[2019-04-21] MEDS ORDERED: ONDANSETRON 4 MG/2 ML VIAL IVP PRN (11:24)
--- NOTE | 2019-04-21 11:32 | P.PN ---
Subjective Progress Note Date: 04/21/19 Principal diagnosis: Intractable nausea and vomiting with subsequent dehydration In follow-up today patient looks significantly better than yesterday, more alert, better color, mother is at bedside. Patient is doing a good job of utilizing the nutritional advice to try and increase his oral intake. He is experiencing decent pain control, he feels the nausea was better controlled when he first was admitted. He did have a bowel movement Objective - Vital Signs Vital signs: Vital Signs Temp 97.9 F 04/21/19 05:00 Pulse 100 04/21/19 05:00 Resp 19 04/21/19 07:55 BP 123/69 04/21/19 05:00 Pulse Ox 95 04/21/19 05:00 Intake & Output 04/20/19 04/21/19 04/21/19 18:59 06:59 18:59 Intake Total 800 900 Balance 800 900 Weight 50.802 kg Intake: Intake, IV Titration 800 900 Amount Sodium Chloride 0.9% 1, 800 900 000 ml @ 100 mls/hr IV . Q10H [facility] Rx#:[id number] Other: Voiding Method Toilet Toilet Toilet # Voids 1 - Constitutional Constitutional Comment(s): Better color today, patient is able to move himself in the bed easier today as well General appearance: Present: cooperative, no acute distress, thin - EENT Eyes: Present: anicteric sclerae, EOMI ENT: Present: hearing grossly normal - Respiratory Details: Respirations even and unlabored - Cardiovascular Details: Skin is warm and dry, no swelling in the bilateral lower extremities - Neurologic Neurologic: Present: CNII-XII intact - Musculoskeletal Musculoskeletal: Present: generalized weakness, strength equal bilaterally - Psychiatric Psychiatric: Present: A&O x's 3, appropriate affect, intact judgment & insight - Labs CBC & Chem 7: 04/21/19 07:51 04/21/19 07:51 Labs: Abnormal Lab Results - Last 24 Hours (Table) 04/20/19 04/20/19 04/20/19 Range/Units 10:40 16:53 19:48 RBC (4.30-5.90) m/uL Hgb (13.0-17.5) gm/dL Hct (39.0-53.0) % Lymphocytes # (1.0-4.8) k/uL Sodium (137-145) mmol/L Chloride (98-107) mmol/L Carbon Dioxide (22-30) mmol/L BUN (9-20) mg/dL Creatinine (0.66-1.25) mg/dL POC Glucose (mg/dL) 106 H 103 H (75-99) mg/dL Osmolality 259 L (280-301) mosm/kg Calcium (8.4-10.2) mg/dL Urine Ketones (Negative) 04/20/19 04/21/19 04/21/19 Range/Units 22:05 07:51 07:51 RBC 3.37 L (4.30-5.90) m/uL Hgb 10.1 L (13.0-17.5) gm/dL Hct 30.7 L (39.0-53.0) % Lymphocytes # 0.6 L (1.0-4.8) k/uL Sodium 128 L (137-145) mmol/L Chloride 97 L (98-107) mmol/L Carbon Dioxide 21 L (22-30) mmol/L BUN 8 L (9-20) mg/dL Creatinine 0.42 L (0.66-1.25) mg/dL POC Glucose (mg/dL) (75-99) mg/dL Osmolality (280-301) mosm/kg Calcium 8.3 L (8.4-10.2) mg/dL Urine Ketones 1+ H (Negative) Assessment and Plan (1) Intractable nausea and vomiting Narrative/Plan: Antiemetic frequency increased as patient is experiencing increased symptoms. Antacids ordered. Cont clear liquids for now. Patient and have met with the dietitian. Again reviewed with patient and his mother at the bedside tips for increasing calories, combating taste changes from chemotherapy, and encouraged patient to eat what he wants when he wants. Current Visit: Yes Status: Acute Priority: High Code(s): R11.2 - NAUSEA WITH VOMITING, UNSPECIFIED SNOMED Code(s): 695886538 (2) Dehydration Narrative/Plan: Improving with IV fluids, patient is just beginning to tolerate oral intake today Current Visit: Yes Status: Acute Priority: High Code(s): E86.0 - DEHYDRATION SNOMED Code(s): 25346262 (3) Hyponatremia Narrative/Plan: Sodium slightly improved to 128 today. Current Visit: Yes Status: Acute Priority: High Code(s): E87.1 - HYPO- OSMOLALITY AND HYPONATREMIA SNOMED Code(s): 07903413 (4) Metastatic primary lung cancer Narrative/Plan: NSCLC, poorly differentiated, unable to discern between squamous/non-squamous subtype. S/P 1st carbo/taxol/tecentriq. Chemo blossom expected in the next 3-5 days. CBC ok at this time. SE r/t [id number], no large dose steroids going to be initiated at this time. Thyroid and cortisol levels returned, no intervention or concerns of immunotherapy side effect. Pt has had improvement in his back pain s/p treatment. Positive subjective response to treatment. Will continue to work with IM to get symptoms managed. Dietitian has met with pt. Would want pt to have treatment again if symptoms can be managed. Pt and agree with plan Current Visit: Yes Status: Acute Priority: High Code(s): C34.90 - MALIGNANT NEOPLASM OF UNSP PART OF UNSP BRONCHUS OR LUNG SNOMED Code(s): 46233221 (5) Anorexia Narrative/Plan: Megace was ordered already for pt, also reglan so, no steroid was ordered. Encouraged small, frequent meals. Current Visit: Yes Status: Acute Priority: High Code(s): R63.0 - ANOREXIA SNOMED Code(s): 44703721 Plan: Soft stool-hold stool softeners for now, close I&O monitoring.
[2019-04-21 11:44] LABS: Glucose,Whole Blood 96 mg/dL (75-99)
[2019-04-21] MEDS: FAMOTIDINE 20 MG/2 ML VIAL IV SCH ×2 (12:37→20:09)
[2019-04-21] MEDS: SALT AND SODA MOUTHWASH 1,000 ML PO SCH ×4 (12:38→23:35)
[2019-04-21 17:00] LABS: Glucose,Whole Blood 104 mg/dL (75-99)
--- NOTE | 2019-04-21 17:05 | PN ---
PROGRESS NOTE DATE OF SERVICE: 04/21/2019 This 53-year-old gentleman who was admitted with intractable nausea and vomiting, also had possibly gastritis and chemotherapy-induced vomiting. The patient also had severe cachexia and malnutrition also. The chest x-ray done showed evidence of malignancy, which is previously noted. Otherwise, the patient closely monitored at this time. Symptomatic treatment is provided. Hematology/Oncology following the patient closely. PAST MEDICAL HISTORY: Reviewed. REVIEW OF SYSTEM: CARDIOVASCULAR SYSTEM: No angina or palpitations. RESPIRATORY: As mentioned earlier. GI: No nausea or vomiting. : No dysuria. NERVOUS SYSTEM: No numbness or weakness. CURRENT MEDICATIONS: Reviewed and include: 1. Marston 5 mg q.4 p.r.n. 2. Xanax 0.5 t.i.d. 3. Pepcid 20 mg b.i.d. 4. Heparin. 5. Megace. 6. Reglan. 7. Zofran. PHYSICAL EXAM: Patient is alert, oriented x3. The pulse is 94, blood pressure 128/86, respirations 16, temperature 97.4, pulse ox 98% on room air. HEENT conjunctivae normal. Neck: No JVD. CARDIOVASCULAR: S1, S2 muffled. RESPIRATIONS: Breath sounds diminished in the bases. A few rhonchi and crackles. ABDOMEN: Soft, nontender. No mass palpable. LEGS: No edema. No swelling. NERVOUS SYSTEM: Higher functions as mentioned earlier. Moves all four limbs. No focal motor or sensory deficits. SKIN: No ulcer, no rashes and no bleeding. JOINTS: No active deforming arthropathy. LABS: At this time shows labs are WBC 5.2, hemoglobin 10.1, sodium 128. ASSESSMENT: 1. Intractable nausea vomiting possible acute gastritis possibly chemotherapy induced. 2. History of right upper lobe, poorly differentiated non-small cell lung cancer on chemotherapy. 3. Increased WBC. 4. Anemia secondary to malignancy. 5. Hyponatremia. 6. Increased random blood sugar. 7. History of gastroesophageal reflux disease. 8. History of adrenal mass. 9. History of nicotine dependence, continued ongoing. 10.History of THC. 11.Severe protein calorie malnutrition with a BMI of 16.1. RECOMMENDATIONS AND DISCUSSION: In this 53-year-old gentleman who presented with multiple complex medical issues, we will monitor the patient closely. Continue the current medications, management and symptomatic treatment. Encourage p.o. fluids. We will continue with pain management. Otherwise, increase ambulation. Continue with IV fluids. Repeat labs. DVT prophylaxis. Closely follow with Hematology/Oncology. Guarded prognosis. Further recommendations to follow. Ced has been initiated. MMODL / IJN: [id number] /
[2019-04-21] MEDS ORDERED: HYDROcodone/APAP 10-325MG 1 EACH TAB PO STA (20:04)
[2019-04-21 20:19] LABS: Glucose,Whole Blood 94 mg/dL (75-99)
[2019-04-22] MEDS: HYDROcodone/APAP 5-325MG 1 EACH TAB PO PRN (01:49)
[2019-04-22] MEDS: SALT AND SODA MOUTHWASH 1,000 ML PO SCH ×4 (06:08→20:42)
[2019-04-22 06:54] LABS: Glucose,Whole Blood 99 mg/dL (75-99)
[2019-04-22 08:23] LABS: Basophils % (A) 1 %; Eosinophils % (A) 0 %; HCT 31.1 % (39.0-53.0); HGB 10.4 gm/dL (13.0-17.5); Lymphocytes % (A) 12 %; MCH 29.9 pg (25.0-35.0); MCHC 33.4 g/dL (31.0-37.0); MCV 89.7 fL (80.0-100.0); Mean Platelet Volume 5.6; Monocytes % (A) 8 %; Neutrophils % (A) 75 %; Platelet Count 419 k/uL (150-450); RBC 3.47 m/uL (4.30-5.90); RDW 12.5 % (11.5-15.5); WBC 3.5 k/uL (3.8-10.6)
[2019-04-22 08:24] LABS: Lymphocytes # (A) 0.4 k/uL (1.0-4.8); Monocytes # (A) 0.3 k/uL (0-1.0); Neutrophils # (A) 2.6 k/uL (1.3-7.7)
[2019-04-22 08:41] LABS: African American GFR (CKD) >90 (>60 ml/min/1.73 sqM); Anion Gap 9 mmol/L; Blood Urea Nitrogen 5 mg/dL (9-20); Calcium 8.2 mg/dL (8.4-10.2); Carbon Dioxide 23 mmol/L (22-30); Chloride 95 mmol/L (98-107); Glucose 95 mg/dL (74-99); Potassium 3.4 mmol/L (3.5-5.1); Sodium 127 mmol/L (137-145)
[2019-04-22] MEDS: INSULIN ASPART (NovoLOG) 100 UNIT/ML VIAL SQ SCH ×4 (08:49→20:42)
[2019-04-22] MEDS ORDERED: MORPHINE SULFATE ER 15 MG TABLET PO PRN (09:49)
[2019-04-22] MEDS: MEGESTROL 400 MG/10 ML CUP PO SCH (09:56)
[2019-04-22] MEDS: SODIUM CHLORIDE 0.9% 1,000 ML IV SCH ×2 (09:56→20:42)
[2019-04-22] MEDS: METOCLOPRAMIDE 5 MG/ML 2 ML VIAL IVP SCH ×3 (09:59→17:46)
[2019-04-22] MEDS: HYDROcodone/APAP 10-325MG 1 EACH TAB PO PRN ×3 (09:59→20:38)
[2019-04-22] MEDS: HEPARIN SODIUM,PORCINE 5,000 UNIT/ML 1 ML VIAL SQ SCH ×2 (10:00→20:38)
[2019-04-22] MEDS: FAMOTIDINE 20 MG/2 ML VIAL IV SCH ×2 (10:00→20:38)
[2019-04-22] MEDS: NICOTINE 14MG/24HR PATCH TRANSDERM SCH (10:00)
[2019-04-22 11:29] LABS: Glucose,Whole Blood 140 mg/dL (75-99)
[2019-04-22 17:06] LABS: Glucose,Whole Blood 105 mg/dL (75-99)
[2019-04-22 20:13] LABS: Glucose,Whole Blood 102 mg/dL (75-99)
--- NOTE | 2019-04-22 20:14 | P.PN ---
Subjective Progress Note Date: 04/22/19 Principal diagnosis: NSCLCA Feeling Better today Increasing PO intake No significant sign of adrenal insuffiency Objective - Vital Signs Vital signs: Vital Signs Temp 98.7 F 04/22/19 11:50 Pulse 105 H 04/22/19 11:50 Resp 18 04/22/19 11:50 BP 112/59 04/22/19 11:50 Pulse Ox 97 04/22/19 11:50 Intake & Output 04/21/19 04/22/19 04/22/19 18:59 06:59 18:59 Intake Total 500 Balance 500 Weight 50.802 kg Intake: Intake, IV Titration 500 Amount Sodium Chloride 0.9% 1, 500 000 ml @ 100 mls/hr IV . Q10H [facility] Rx#:[id number] Other: Voiding Method Toilet Toilet Toilet # Voids 3 1 # Bowel Movements 1 - Exam Gen: Alert and Oriented, NAD cachexia Head: NCNT Neck Supple Heart RRR Lungs No increased effort CTA B Abdomen: S/ND/NT Ext: No Rash, No Edema, Equal Strength Psych: Calm and Coroperative Neuro: No Focal Deficits Noted. - Labs CBC & Chem 7: 04/22/19 07:55 04/22/19 07:55 Labs: Abnormal Lab Results - Last 24 Hours (Table) 04/21/19 04/21/19 04/21/19 Range/Units 07:47 08:54 16:58 WBC (3.8-10.6) k/uL RBC (4.30-5.90) m/uL Hgb (13.0-17.5) gm/dL Hct (39.0-53.0) % Lymphocytes # (1.0-4.8) k/uL Sodium (137-145) mmol/L Potassium (3.5-5.1) mmol/L Chloride (98-107) mmol/L BUN (9-20) mg/dL Creatinine (0.66-1.25) mg/dL POC Glucose (mg/dL) 104 H (75-99) mg/dL Calcium (8.4-10.2) mg/dL ACTH 48.40 H 47.00 H (0.00-45.99) pg/mL 04/22/19 04/22/19 04/22/19 Range/Units 07:55 07:55 11:28 WBC 3.5 L (3.8-10.6) k/uL RBC 3.47 L (4.30-5.90) m/uL Hgb 10.4 L (13.0-17.5) gm/dL Hct 31.1 L (39.0-53.0) % Lymphocytes # 0.4 L (1.0-4.8) k/uL Sodium 127 L (137-145) mmol/L Potassium 3.4 L (3.5-5.1) mmol/L Chloride 95 L (98-107) mmol/L BUN 5 L (9-20) mg/dL Creatinine 0.47 L (0.66-1.25) mg/dL POC Glucose (mg/dL) 140 H (75-99) mg/dL Calcium 8.2 L (8.4-10.2) mg/dL ACTH (0.00-45.99) pg/mL Assessment and Plan Plan: Intractable nausea and vomiting Antiemetic frequency increased as patient is experiencing increased symptoms. Antacids ordered. Cont clear liquids for now. Patient and have met with the dietitian. Again reviewed with patient and his mother at the bedside tips for increasing calories, combating taste changes from chemotherapy, and encouraged patient to eat what he wants when he wants. Dehydration Improving with IV fluids, patient is just beginning to tolerate oral intake today Hyponatremia Sodium 127 today. - Component Dehydration versus SIADH - Nephrology to evaluate Hypokalemia: - Check Mag - Supp per protocol Mild increased BIli: - Recheck in AM Metastatic primary lung cancer: NSCLC, poorly differentiated, unable to discern between squamous/non-squamous subtype. S/P 1st carbo/taxol/tecentriq. Chemo blossom expected in the next 3-5 days. CBC ok at this time. SE r/t [id number], no large dose steroids going to be initiated at this time. Thyroid and cortisol levels returned, no intervention or concerns of immunotherapy side effect. Pt has had improvement in his back pain s/p treatment. Positive subjective response to treatment. Will continue to work with IM to get symptoms managed. Dietitian has met with pt. Would want pt to have treatment again if symptoms can be managed. Pt and agree with plan Anorexia Megace Encouraged small, frequent meals. I have completed the full history and physical of this patient and developed the complete impression and plan, Agree with Saranya GALLEGO, dictated as a sccribe
[2019-04-23] MEDS: SALT AND SODA MOUTHWASH 1,000 ML PO SCH ×5 (02:04→20:24)
[2019-04-23] MEDS: SODIUM CHLORIDE 0.9% 1,000 ML IV SCH ×2 (05:57→18:05)
[2019-04-23 07:11] LABS: Basophils % (A) 1 %; Eosinophils % (A) 0 %; HCT 28.6 % (39.0-53.0); HGB 9.4 gm/dL (13.0-17.5); Lymphocytes # (A) 0.5 k/uL (1.0-4.8); Lymphocytes % (A) 15 %; MCH 29.6 pg (25.0-35.0); MCHC 32.9 g/dL (31.0-37.0); MCV 90.1 fL (80.0-100.0); Mean Platelet Volume 5.6; Monocytes # (A) 0.4 k/uL (0-1.0); Monocytes % (A) 12 %; Neutrophils # (A) 2.5 k/uL (1.3-7.7); Neutrophils % (A) 68 %; Platelet Count 349 k/uL (150-450); RBC 3.18 m/uL (4.30-5.90); RDW 12.9 % (11.5-15.5); WBC 3.6 k/uL (3.8-10.6)
[2019-04-23 07:18] LABS: Glucose,Whole Blood 99 mg/dL (75-99)
[2019-04-23 07:24] LABS: ALT 18 U/L (21-72); AST 16 U/L (17-59); African American GFR (CKD) >90 (>60 ml/min/1.73 sqM); Albumin 2.5 g/dL (3.5-5.0); Alkaline Phosphatase 93 U/L (38-126); Anion Gap 9 mmol/L; Blood Urea Nitrogen 5 mg/dL (9-20); Calcium 8.2 mg/dL (8.4-10.2); Carbon Dioxide 25 mmol/L (22-30); Chloride 95 mmol/L (98-107); Glucose 94 mg/dL (74-99); Magnesium 1.5 mg/dL (1.6-2.3); Phosphorus 2.9 mg/dL (2.5-4.5); Potassium 3.7 mmol/L (3.5-5.1); Sodium 129 mmol/L (137-145); Total Bilirubin 0.6 mg/dL (0.2-1.3); Total Protein 5.3 g/dL (6.3-8.2)
[2019-04-23] MEDS: METOCLOPRAMIDE 5 MG/ML 2 ML VIAL IVP SCH ×2 (08:22→13:23)
[2019-04-23] MEDS: MEGESTROL 400 MG/10 ML CUP PO SCH (08:22)
[2019-04-23] MEDS: HYDROcodone/APAP 10-325MG 1 EACH TAB PO PRN ×2 (08:23→20:24)
[2019-04-23] MEDS: HEPARIN SODIUM,PORCINE 5,000 UNIT/ML 1 ML VIAL SQ SCH ×2 (08:23→20:25)
[2019-04-23] MEDS: ALPRAZolam 0.25 MG TAB PO PRN ×2 (08:23→20:24)
[2019-04-23] MEDS: FAMOTIDINE 20 MG/2 ML VIAL IV SCH (08:23)
[2019-04-23] MEDS: NICOTINE 14MG/24HR PATCH TRANSDERM SCH (08:23)
[2019-04-23] MEDS: INSULIN ASPART (NovoLOG) 100 UNIT/ML VIAL SQ SCH ×4 (08:29→20:26)
[2019-04-23 12:06] LABS: Glucose,Whole Blood 91 mg/dL (75-99)
[2019-04-23 17:06] LABS: Glucose,Whole Blood 142 mg/dL (75-99)
--- NOTE | 2019-04-23 17:17 | P.PN ---
Subjective Progress Note Date: 04/22/19 Principal diagnosis: Intractable nausea and vomiting Right upper lobe non-small cell lung cancer currently on chemotherapy Patient is a 53-year-old male with a known history of non-small cell lung cancer currently on chemotherapy came to ER with complaints of intractable nausea and vomiting. Patient is also severely cachectic and malnourished. 04/22/2019 patient is still having nausea. Improved vomiting. Able to tolerate diet slowly. Pain is fairly controlled. Started on fentanyl patches as per oncology. Sodium level is 127 today. Patient is being continued on IV hydration. No fever no chills. No complains of chest pain or worsening shortness of breath. Patient is having generalized weakness otherwise. Current medications reviewed Objective - Vital Signs Vital signs: Vital Signs Temp 98.7 F 04/22/19 11:50 Pulse 105 H 04/22/19 11:50 Resp 18 04/22/19 16:23 BP 112/59 04/22/19 11:50 Pulse Ox 97 04/22/19 11:50 Intake & Output 04/22/19 04/22/19 04/23/19 06:59 18:59 06:59 Intake Total 500 Balance 500 Weight 50.802 kg Intake: Intake, IV Titration 500 Amount Sodium Chloride 0.9% 1, 500 000 ml @ 100 mls/hr IV . Q10H [facility] Rx#:[id number] Other: Voiding Method Toilet Toilet # Voids 1 1 # Bowel Movements 1 - Exam PHYSICAL EXAMINATION: Patient is lying in the bed comfortably, no acute distress, awake alert and oriented. Cachectic. HEENT: Normocephalic. Neck is supple. Pupils reactive. Nostrils clear. Oral cavity is moist. Ears reveal no drainage. Neck reveals no JVD, carotid bruits, or thyromegaly. CHEST EXAMINATION: Trachea is central. Symmetrical expansion. Lung rider clear to auscultation and percussion. CARDIAC: Normal S1, S2 with no gallops. No murmurs ABDOMEN: Soft. Bowel sounds normal. No organomegaly. No abdominal bruits. Extremities: reveal no edema. No clubbing or cyanosis Neurologically awake, alert, oriented x3 with well-coordinated movements. No focal deficits noted Skin: No rash or skin lesions. Psychiatric: Coperative. Nonsuicidal Musculoskeletal: No joint swelling or deformity. Normal range of motion. - Labs CBC & Chem 7: 04/23/19 06:56 04/23/19 06:56 Labs: Abnormal Lab Results - Last 24 Hours (Table) 04/21/19 04/21/19 04/22/19 Range/Units 07:47 08:54 07:55 WBC 3.5 L (3.8-10.6) k/uL RBC 3.47 L (4.30-5.90) m/uL Hgb 10.4 L (13.0-17.5) gm/dL Hct 31.1 L (39.0-53.0) % Lymphocytes # 0.4 L (1.0-4.8) k/uL Sodium (137-145) mmol/L Potassium (3.5-5.1) mmol/L Chloride (98-107) mmol/L BUN (9-20) mg/dL Creatinine (0.66-1.25) mg/dL POC Glucose (mg/dL) (75-99) mg/dL Calcium (8.4-10.2) mg/dL ACTH 48.40 H 47.00 H (0.00-45.99) pg/mL 04/22/19 04/22/19 04/22/19 Range/Units 07:55 11:28 17:05 WBC (3.8-10.6) k/uL RBC (4.30-5.90) m/uL Hgb (13.0-17.5) gm/dL Hct (39.0-53.0) % Lymphocytes # (1.0-4.8) k/uL Sodium 127 L (137-145) mmol/L Potassium 3.4 L (3.5-5.1) mmol/L Chloride 95 L (98-107) mmol/L BUN 5 L (9-20) mg/dL Creatinine 0.47 L (0.66-1.25) mg/dL POC Glucose (mg/dL) 140 H 105 H (75-99) mg/dL Calcium 8.2 L (8.4-10.2) mg/dL ACTH (0.00-45.99) pg/mL Assessment and Plan Assessment: Intractable nausea and vomiting possible acute gastritis versus chemotherapy- induced. Right upper lobe poorly differentiated non-small cell lung cancer currently on chemotherapy Hypovolemic hyponatremia Generalized pain secondary to cancer related Anemia of chronic disease/malignancy GERD History of adrenal mass Ongoing nicotine addiction Severe protein calorie malnutrition with BMI 16.1 DVT prophylaxis with heparin subcu plan: Patient will be continued on pain management. Continue with IV hydration with normal saline and increase oral intake. Monitor sodium level. Increase activity. Follow up closely and further recommendations based on the critical course. Prognosis is guarded. Oncology is on board. Time with Patient: Greater than 30
[2019-04-23] MEDS: MAGNESIUM SULFATE-D5W PMX 1 GM in DEXTROSE/WATER 1 100ML.BAG IVPB SCH ×2 (18:05→19:11)
[2019-04-23] MEDS: METOCLOPRAMIDE 5 MG TAB PO SCH (18:08)
[2019-04-23] MEDS: FAMOTIDINE 20 MG TAB PO SCH (20:24)
[2019-04-23 20:26] LABS: Glucose,Whole Blood 130 mg/dL (75-99)
[2019-04-24] MEDS: SALT AND SODA MOUTHWASH 1,000 ML PO SCH ×3 (02:31→11:06)
[2019-04-24] MEDS: SODIUM CHLORIDE 0.9% 1,000 ML IV SCH ×2 (02:31→04:16)
[2019-04-24 07:00] LABS: Glucose,Whole Blood 114 mg/dL (75-99)
[2019-04-24] MEDS: INSULIN ASPART (NovoLOG) 100 UNIT/ML VIAL SQ SCH ×2 (07:34→11:06)
[2019-04-24] MEDS: NICOTINE 14MG/24HR PATCH TRANSDERM SCH (07:34)
[2019-04-24] MEDS: FAMOTIDINE 20 MG TAB PO SCH (08:03)
[2019-04-24] MEDS: MEGESTROL 400 MG/10 ML CUP PO SCH (08:03)
[2019-04-24] MEDS: METOCLOPRAMIDE 5 MG TAB PO SCH ×2 (08:03→12:08)
[2019-04-24] MEDS: HYDROcodone/APAP 10-325MG 1 EACH TAB PO PRN (08:04)
[2019-04-24] MEDS: HEPARIN SODIUM,PORCINE 5,000 UNIT/ML 1 ML VIAL SQ SCH (08:04)
[2019-04-24 11:01] LABS: Glucose,Whole Blood 109 mg/dL (75-99)
[2019-04-24] MEDS: ALPRAZolam 0.25 MG TAB PO PRN (11:06)
[2019-04-24 12:18] VITALS: BP 113/77; PULSE 108; RESP 17; TEMP 98.9
--- NOTE | 2019-04-24 16:04 | P.PN ---
Subjective Progress Note Date: 04/23/19 Principal diagnosis: Intractable nausea and vomiting Right upper lobe non-small cell lung cancer currently on chemotherapy Patient is a 53-year-old male with a known history of non-small cell lung cancer currently on chemotherapy came to ER with complaints of intractable nausea and vomiting. Patient is also severely cachectic and malnourished. 04/22/2019 patient is still having nausea. Improved vomiting. Able to tolerate diet slowly. Pain is fairly controlled. Started on fentanyl patches as per oncology. Sodium level is 127 today. Patient is being continued on IV hydration. No fever no chills. No complains of chest pain or worsening shortness of breath. Patient is having generalized weakness otherwise. Patient says that his nausea is better and is able to swallow without any difficulty. Pain is fairly controlled with fentanyl patch and also getting Xanax 0.25 mg 3 times a day. Sodium level improved to 129. Patient is being continued on IV hydration and possible discharge in next 24 hours with more clinical improvement. No complaints of chest pain or shortness of breath. No headache or dizziness or lightheadedness. No fever no chills. Current medications reviewed Objective - Vital Signs Vital signs: Vital Signs Temp 98.1 F 04/23/19 12:22 Pulse 115 H 04/23/19 17:13 Resp 16 04/23/19 12:22 BP 114/76 04/23/19 17:13 Pulse Ox 98 04/23/19 17:13 Intake & Output 04/22/19 04/23/19 04/23/19 18:59 06:59 18:59 Intake Total 1160 Balance 1160 Weight 50.802 kg 50.802 kg Intake: Intake, IV Titration 800 Amount Sodium Chloride 0.9% 1, 800 000 ml @ 100 mls/hr IV . Q10H [facility] Rx#:[id number] Oral 360 Other: Voiding Method Toilet Toilet Toilet # Voids 1 1 - Exam PHYSICAL EXAMINATION: Patient is lying in the bed comfortably, no acute distress, awake alert and oriented. Cachectic. HEENT: Normocephalic. Neck is supple. Pupils reactive. Nostrils clear. Oral cavity is moist. Ears reveal no drainage. Neck reveals no JVD, carotid bruits, or thyromegaly. CHEST EXAMINATION: Trachea is central. Symmetrical expansion. Lung rider clear to auscultation and percussion. CARDIAC: Normal S1, S2 with no gallops. No murmurs ABDOMEN: Soft. Bowel sounds normal. No organomegaly. No abdominal bruits. Extremities: reveal no edema. No clubbing or cyanosis Neurologically awake, alert, oriented x3 with well-coordinated movements. No focal deficits noted Skin: No rash or skin lesions. Psychiatric: Coperative. Nonsuicidal Musculoskeletal: No joint swelling or deformity. Normal range of motion. - Labs CBC & Chem 7: 04/23/19 06:56 04/23/19 06:56 Labs: Abnormal Lab Results - Last 24 Hours (Table) 04/22/19 04/23/19 04/23/19 Range/Units 20:12 06:56 06:56 WBC 3.6 L (3.8-10.6) k/uL RBC 3.18 L (4.30-5.90) m/uL Hgb 9.4 L (13.0-17.5) gm/dL Hct 28.6 L (39.0-53.0) % Lymphocytes # 0.5 L (1.0-4.8) k/uL Sodium 129 L (137-145) mmol/L Chloride 95 L (98-107) mmol/L BUN 5 L (9-20) mg/dL Creatinine 0.42 L (0.66-1.25) mg/dL POC Glucose (mg/dL) 102 H (75-99) mg/dL Osmolality 257 L (280-301) mosm/kg Calcium 8.2 L (8.4-10.2) mg/dL Magnesium 1.5 L (1.6-2.3) mg/dL AST 16 L (17-59) U/L ALT 18 L (21-72) U/L Total Protein 5.3 L (6.3-8.2) g/dL Albumin 2.5 L (3.5-5.0) g/dL 04/23/19 Range/Units 17:05 WBC (3.8-10.6) k/uL RBC (4.30-5.90) m/uL Hgb (13.0-17.5) gm/dL Hct (39.0-53.0) % Lymphocytes # (1.0-4.8) k/uL Sodium (137-145) mmol/L Chloride (98-107) mmol/L BUN (9-20) mg/dL Creatinine (0.66-1.25) mg/dL POC Glucose (mg/dL) 142 H (75-99) mg/dL Osmolality (280-301) mosm/kg Calcium (8.4-10.2) mg/dL Magnesium (1.6-2.3) mg/dL AST (17-59) U/L ALT (21-72) U/L Total Protein (6.3-8.2) g/dL Albumin (3.5-5.0) g/dL Assessment and Plan Assessment: Intractable nausea and vomiting possible acute gastritis versus chemotherapy-induced. Right upper lobe poorly differentiated non-small cell lung cancer currently on chemotherapy Hypovolemic hyponatremia Generalized pain secondary to cancer related Anemia of chronic disease/malignancy GERD History of adrenal mass Ongoing nicotine addiction Severe protein calorie malnutrition with BMI 16.1 DVT prophylaxis with heparin subcu plan: Patient will be continued on pain management. Continue with IV hydration with normal saline and increase oral intake. Monitor sodium level. Increase activity. Follow up closely and further recommendations based on the critical course. Prognosis is guarded. Oncology is on board. Time with Patient: Greater than 30
--- NOTE | 2019-04-28 08:23 | CDI ---
Documentation Clarification Form Date: 04/28/2019 8:11:02 AM From: Filomena Suresh Phone: Admit Date: 04/19/2019 6:32:00 PM Patient Name: Prosper Posey Visit Number: [id number] Discharge Date: 04/24/2019 5:03:00 PM ATTENTION: The Clinical Documentation Specialists (CDI) and [facility] Coding Staff appreciate your assistance in clarifying documentation. Please respond to the clarification below the line at the bottom and electronically sign. The CDI & [facility] Coding staff will review the response and follow-up if needed. Please note: Queries are made part of the Legal Health Record. If you have any questions, please contact the author of this message via ITS. Dr. Raleigh Do is documented in the . Patient history/risk factors: Clinical Indicators: Radiology: Labs: Vital Signs: Other Clinical Indicators: Treatment: Oxygen: Medication: Consults: Other Treatment: Clinical significance of diagnostic testing and treatment cannot be assumed or coded without physician documentation of the significance, if any. Signs or symptoms of an underlying condition should be coded only if not definite diagnosis is determined. In your professional opinion, can you please clarify the underlying cause of the patients symptoms, if known? _insert option Other, please specify Unable to determine MTDD
== END 2019-04-24 17:03 | disposition home or self-care (01) | DRG 391 ==
LOC: EC 15:11 → 3NMEDONC 18:32
PROVIDERS: ADMIT Hospitalist; ATTEND Hospitalist
DX: K29.00 Acute gastritis without bleeding (principal); E43 Unspecified severe protein-calorie malnutrition; C79.70 Secondary malignant neoplasm of unspecified adrenal gland; C34.11 Malignant neoplasm of upper lobe, right bronchus or lung; E87.1 Hypo-osmolality and hyponatremia; R64 Cachexia; E87.6 Hypokalemia; Z68.1 Body mass index [BMI] 19.9 or less, adult; T45.1X5A Adverse effect of antineoplastic and immunosuppressive drugs, initial encounter; D63.0 Anemia in neoplastic disease; E86.0 Dehydration; E86.1 Hypovolemia; F17.200 Nicotine dependence, unspecified, uncomplicated; G89.3 Neoplasm related pain (acute) (chronic); K21.9 Gastro-esophageal reflux disease without esophagitis; Z82.49 Family history of ischemic heart disease and other diseases of the circulatory system; Z85.118 Personal history of other malignant neoplasm of bronchus and lung
CPT/HCPCS: 36415; 71045; 80048; 80053; 81003; 82024; 82150; 82533; 83605; 83690; 83735; 83930; 83935; 84100; 84439; 84443; 84481; 85025; 96361; 96374; 96375; 99284

== ENCOUNTER 2019-05-06 18:38 | Inpatient (IN) | payer MEDICAID ==
--- NOTE | 2019-05-06 19:16 | ED ---
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 Patient reports he received his second chemotherapy treatment yesterday and has since developed nausea, vomiting and generalized weakness. Patient reports decreased appetite. Patient reports feeling chilly but never actually obtain his temperature. Patient also reports she has been coughing up green sputum with follow-up. Patient denies any wheezing But does report shortness of breath. Patient denies chest pain at this time. Patient also reports some lightheadedness but no dizziness. (Guru Brooks) - Related Data Home Medications Medication Instructions Recorded Confirmed Hydrocodone/Acetaminophen [[place] 1 tab PO Q6H PRN 04/19/19 04/19/19 10-325] Prochlorperazine [Compazine] 10 mg PO Q6H PRN 04/19/19 04/19/19 Previous Rx's Medication Instructions Recorded ALPRAZolam [Xanax] 0.25 mg PO TID PRN 7 Days #21 tab 04/24/19 Famotidine [Pepcid] 20 mg PO BID #60 tab 04/24/19 Megestrol [Megace] 400 mg PO DAILY #100 ml 04/24/19 Metoclopramide [Reglan] 5 mg PO AC-TID PRN #21 tab 04/24/19 fentaNYL 50MCG/HR PATCH [Duragesic 1 patch TRANSDERM Q72H #5 patch 04/24/19 50MCG/HR] Allergies Allergy/AdvReac Type Severity Reaction Status Date / Time No Known Allergies Allergy Verified 05/06/19 18:44 Review of Systems ROS Other: All systems not noted in ROS Statement are negative. <Guru Brooks - Last Filed: 05/06/19 19:40> ROS Other: All systems not noted in ROS Statement are negative. <EssieOscar orantes Tiffany - Last Filed: 05/06/19 22:27> ROS Statement: Those systems with pertinent positive or pertinent negative responses have been documented in the HPI. Past Medical History Past Medical History: Cancer, GERD/Reflux Additional Past Medical History / Comment(s): adrenal mass X 2 History of Any Multi-Drug Resistant Organisms: None Reported Past Surgical History: Hernia Repair Additional Past Surgical History / Comment(s): left thumb re-attached Past Anesthesia/Blood Transfusion Reactions: No Reported Reaction Past Psychological History: No Psychological Hx Reported Smoking Status: Former smoker Past Alcohol Use History: None Reported Past Drug Use History: Marijuana - Past Family History Father Family Medical History: Coronary Artery Disease (CAD) <Guru Brooks - Last Filed: 05/06/19 19:40> General Exam Limitations: no limitations General appearance: alert, in no apparent distress, cachectic Head exam: Present: atraumatic, normocephalic, normal inspection Eye exam: Present: normal appearance Pupils: Present: normal accommodation ENT exam: Present: normal exam, mucous membranes moist, normal external ear exam Neck exam: Present: normal inspection, full ROM Respiratory exam: Present: normal lung sounds bilaterally. Absent: respiratory distress, wheezes, rales, rhonchi, stridor Cardiovascular Exam: Present: regular rate, normal rhythm Extremities exam: Present: normal inspection, full ROM Back exam: Present: normal inspection, full ROM Neurological exam: Present: alert, oriented X3 Psychiatric exam: Present: normal affect, normal mood Skin exam: Present: warm, intact, normal color <Guru Brooks - Last Filed: 05/06/19 19:40> General appearance: alert, in no apparent distress, anxious Head exam: Present: atraumatic, normocephalic, normal inspection Eye exam: Present: normal appearance, PERRL, EOMI. Absent: scleral icterus, conjunctival injection, periorbital swelling ENT exam: Present: normal exam, mucous membranes moist Neck exam: Present: normal inspection. Absent: tenderness, meningismus, lymphadenopathy Respiratory exam: Present: decreased breath sounds (Right upper lobe). Absent: normal lung sounds bilaterally, respiratory distress, wheezes, rales, rhonchi, stridor Cardiovascular Exam: Present: normal rhythm, tachycardia, normal heart sounds. Absent: systolic murmur, diastolic murmur, rubs, gallop, clicks GI/Abdominal exam: Present: soft, normal bowel sounds. Absent: distended, tenderness, guarding, rebound, rigid Extremities exam: Present: normal inspection, full ROM, normal capillary refill. Absent: tenderness, pedal edema, joint swelling, calf tenderness Back exam: Present: normal inspection Neurological exam: Present: alert, oriented X3, CN II-XII intact Psychiatric exam: Present: normal affect, normal mood Skin exam: Present: warm, dry, intact, normal color. Absent: rash <Oscar Chery - Last Filed: 05/06/19 22:27> Course <Oscar Chery - Last Filed: 05/06/19 22:27> Vital Signs 05/06/19 05/06/19 05/06/19 18:41 18:51 20:12 Temperature 98.2 F 99.5 F Pulse Rate 117 H 117 H Respiratory 18 18 19 Rate Blood Pressure 121/76 138/90 O2 Sat by Pulse 98 100 Oximetry - Reevaluation(s) Reevaluation #1: 05/06/19 22:27 Medical records reviewed (Oscar Chery) Reevaluation #2: 05/06/19 22:27 Patient is in no respiratory distress, symptoms improving (Oscar Chery) EKG Findings - EKG Comments: EKG Findings:: Sinus tach, atrial enlargement, no ST elevation. Ventricular rate 114, ND interval 128, QRS duration 74, QT/QTC 340/468 <Guru Brooks - Last Filed: 05/06/19 19:40> Medical Decision Making - Lab Data Result diagrams: 05/06/19 19:30 05/06/19 19:30 - Radiology Data Radiology results: report reviewed (EKG chest for PE positive for right upper lobe consolidation mass and pneumonia), image reviewed <Oscar Chery - Last Filed: 05/06/19 22:27> - Medical Decision Making 50 female here with ER with shortness of breath positive pneumonia increasing lung mass mild. Patient be admitted for IV antibiotics and continue monitoring of lung mass, pneumonia (Oscar Chery) - Lab Data Lab Results 05/06/19 05/06/19 Range/Units 19:30 19:30 WBC 11.0 H (3.8-10.6) k/uL RBC 3.36 L (4.30-5.90) m/uL Hgb 10.0 L (13.0-17.5) gm/dL Hct 30.1 L (39.0-53.0) % MCV 89.6 (80.0-100.0) fL MCH 29.7 (25.0-35.0) pg MCHC 33.2 (31.0-37.0) g/dL RDW 12.9 (11.5-15.5) % Plt Count 393 (150-450) k/uL Neutrophils % 93 % Lymphocytes % 6 % Monocytes % 1 % Eosinophils % 0 % Basophils % 0 % Neutrophils # 10.2 H (1.3-7.7) k/uL Lymphocytes # 0.6 L (1.0-4.8) k/uL Monocytes # 0.1 (0-1.0) k/uL Eosinophils # 0.0 (0-0.7) k/uL Basophils # 0.0 (0-0.2) k/uL Sodium 129 L (137-145) mmol/L Potassium 4.5 (3.5-5.1) mmol/L Chloride 95 L (98-107) mmol/L Carbon Dioxide 25 (22-30) mmol/L Anion Gap 9 mmol/L BUN 10 (9-20) mg/dL Creatinine 0.49 L (0.66-1.25) mg/dL Est GFR (CKD-EPI)AfAm >90 (>60 ml/min/1.73 sqM) Est GFR (CKD-EPI)NonAf >90 (>60 ml/min/1.73 sqM) Glucose 106 H (74-99) mg/dL Calcium 8.7 (8.4-10.2) mg/dL Total Bilirubin 0.7 (0.2-1.3) mg/dL AST 30 (17-59) U/L ALT 19 L (21-72) U/L Alkaline Phosphatase 188 H (38-126) U/L Total Protein 6.3 (6.3-8.2) g/dL Albumin 2.9 L (3.5-5.0) g/dL Disposition <Guru Brooks - Last Filed: 05/06/19 19:40> Is patient prescribed a controlled substance at d/c from ED?: No <Oscar Chery - Last Filed: 05/06/19 22:27> Clinical Impression: Mass of upper lobe of left lung, Mass of upper lobe of right lung, Metastatic primary lung cancer, Dehydration, Nosocomial pneumonia Disposition: ADMITTED IP TO THIS HOSP Condition: Fair Referrals: Douglas Sánchez MD [Primary Care Provider] - 1-2 days
[2019-05-06] MEDS ORDERED: SODIUM CHLORIDE 0.9% 1,000 ML IV STA (19:24)
[2019-05-06] MEDS ORDERED: ONDANSETRON 4 MG/2 ML VIAL IVP STA (19:24)
[2019-05-06 19:49] LABS: Basophils % (A) 0 %; Eosinophils % (A) 0 %; HCT 30.1 % (39.0-53.0); Lymphocytes # (A) 0.6 k/uL (1.0-4.8); Lymphocytes % (A) 6 %; MCH 29.7 pg (25.0-35.0); MCHC 33.2 g/dL (31.0-37.0); MCV 89.6 fL (80.0-100.0); Mean Platelet Volume 6.3; Monocytes # (A) 0.1 k/uL (0-1.0); Monocytes % (A) 1 %; Neutrophils # (A) 10.2 k/uL (1.3-7.7); Neutrophils % (A) 93 %; Platelet Count 393 k/uL (150-450); RBC 3.36 m/uL (4.30-5.90); RDW 12.9 % (11.5-15.5)
[2019-05-06 19:56] LABS: ALT 19 U/L (21-72); AST 30 U/L (17-59); African American GFR (CKD) >90 (>60 ml/min/1.73 sqM); Albumin 2.9 g/dL (3.5-5.0); Alkaline Phosphatase 188 U/L (38-126); Anion Gap 9 mmol/L; Blood Urea Nitrogen 10 mg/dL (9-20); Calcium 8.7 mg/dL (8.4-10.2); Carbon Dioxide 25 mmol/L (22-30); Chloride 95 mmol/L (98-107); Glucose 106 mg/dL (74-99); Potassium 4.5 mmol/L (3.5-5.1); Sodium 129 mmol/L (137-145); Total Bilirubin 0.7 mg/dL (0.2-1.3); Total Protein 6.3 g/dL (6.3-8.2)
--- NOTE | 2019-05-06 21:48 | XR ---
EXAMINATION: XR chest 2V DATE AND TIME: 05/06/2019 8:56 PM CLINICAL INDICATION: cough; patient with known lung masses, lung carcinoma. TECHNIQUE: Departmental protocol COMPARISON: Chest radiograph 04/20/2019 FINDINGS: The previously seen complex right upper and mid lung consolidative mass-like densities are greater in their density and confluence when compared to the prior study. The lungs have the same ove rall inflation appearance. There is no pulmonary edema. Bullae and bleb formation are seen bilaterally, but there is no evident pneumothorax. No pleural effusion. Cardiomediastinal silhouette and bones and soft tissues are unremarkable. IMPRESSION: 1) Interval progression in the masslike right upper and mid lung zone densities. 2) Overall stable lung inflation pattern when compared to the prior study of 04/20/2019.
--- NOTE | 2019-05-06 22:18 | CT ---
EXAMINATION TYPE: CT angio chest with contrast and with 3-D reconstruction renderings DATE OF EXAM: 05/06/2019 9:36 PM COMPARISON: 03/05/2019 HISTORY: abdominal pain, SOB, nausea. hx of adrenal ca. CT DLP: 312.4 mGycm Automated exposure control for dose reduction was used. CONTRAST: CTA scan of the thorax is performed with IV Contrast, patient injected with 100 mL of Isovu e 370, pulmonary embolism protocol. The reconstructions. FINDINGS: LUNGS AND PLEURAL SPACES: The airways are patent. The right upper lobe shows diffuse consolidation pr esently, with a 5 cm zone of cavitation seen in the site of the previously measured spiculated right upper lobe bronchogenic mass. The left suprahilar spiculated mass contiguous with the left hilar nara opathy is similar in its volume. There is no pulmonary edema. No pneumothorax. MEDIASTINUM: There is satisfactory enhancement of the pulmonary artery and its branches, there is no CT evidence for pulmonary embolism. No acute aortic pathology. No cardiomegaly or pericardial effusion. The previously seen mediastinal and hilar adenopathy has mildly progressed in volume when compared th e prior study VISUALIZED SUBDIAPHRAGMATIC STRUCTURES: Large bilateral adrenal low-attenuation masses have mildly pr ogressed in their volume when compared to the prior study, particularly on the left. These masses are contiguous with upper abdominal aortocaval adenopathy. OSSEOUS STRUCTURES: No focal skeletal lesions. IMPRESSION: 1) NEGATIVE FOR PULMONARY EMBOLISM. 2) NEW RIGHT UPPER LOBE NEAR-COMPLETE CONSOLIDATION. 3) MILDLY ADVANCED TUMOR VOLUME WHEN COMPARED TO THE PRIOR STUDY 03/05/2019.
--- NOTE | 2019-05-06 22:19 | CT ---
EXAMINATION TYPE: CT abdomen pelvis w con DATE OF EXAM: 05/06/2019 COMPARISON: 01/14/2019 HISTORY: abdominal pain, SOB, nausea. hx of adrenal ca. CT DLP: 677.1 mGycm Automated exposure control for dose reduction was used. TECHNIQUE: Helical acquisition of images was performed from the lung bases through the pelvis. CONTRAST: Performed without Oral Contrast and with IV Contrast, patient injected with 100 mL of Isovue 370. FINDINGS: There is some mild reticular infiltrate right middle lobe. There is no pleural effusion. He art size is normal. There is no pericardial effusion. There is bilateral cystic enlargement of the ad renal glands and much larger on the left side. Left side measures 8 x 4 cm. Right side measures 6 x 2 .5 cm. There is no evidence of pancreatic mass. Spleen appears intact. Liver shows no focal defect. S tomach is intact. The bile ducts are not dilated. Kidneys show satisfactory contrast opacification. There is no hydronephrosis. There is a 1.5 cm enlarged left para-aortic lymph node that appears slightly smaller than old exam. T here is no evidence of a bowel obstruction. Bladder distends smoothly. There is no dilated bowel. The re is mild increased subcutaneous density that could relate to anasarca. The bony pelvis is intact. L umbar spine is intact. Appendix is not seen. There is no sign of thickened appendix. Evaluation of durga wel difficult because of lack of intraperitoneal fat and oral contrast. IMPRESSION: BILATERAL ENLARGED ADRENAL GLANDS CONSISTENT WITH A HISTORY OF ADRENAL MALIGNANCY. THIS APPEARS NOT S IGNIFICANTLY DIFFERENT THAN LAST EXAM. RETROPERITONEAL ADENOPATHY IMPROVED COMPARED TO OLD EXAM. THERE IS BEEN SOME WASTING SINCE LAST EXAM WITH DECREASED SUBCUTANEOUS FAT AND INTRAPERITONEAL FAT. T HERE IS A NEW SMALL RIGHT MIDDLE LOBE INFILTRATE AT THE ANTERIOR CHEST WALL COMPARED TO OLD EXAM.
[2019-05-06] MEDS ORDERED: LEVOFLOXACIN 750MG-D5W PMX 750 MG in DEXTROSE/WATER 1 150ML.BAG IVPB STA (22:27)
[2019-05-06] MEDS ORDERED: PNEUMONIA PROTOCOL UTILIZED 1 EACH MISC PO PRN (22:27)
[2019-05-06] MEDS ORDERED: PIPERACILLIN-TAZOBACTAM 3.375 GM in SODIUM CHLORIDE 0.9% 100 ML IVPB STA (22:27)
[2019-05-06 22:59] LABS: Appearance,Urine Clear (Clear); Bilirubin,Urine Negative (Negative); Blood,Urine Negative (Negative); Color,Urine Yellow; Glucose,Urine (UA) Negative (Negative); Ketones,Urine Negative (Negative); Leukocyte Esterase,Urine Negative (Negative); Nitrite,Urine Negative (Negative); Protein,Urine Negative (Negative); Specific Gravity,Urine 1.021 (1.001-1.035)
[2019-05-06] MEDS ORDERED: ACETAMINOPHEN TAB 500 MG TAB PO STA (23:10)
[2019-05-06] MEDS ORDERED: SODIUM CHLORIDE 0.9% 1,000 ML IV ONE (23:11)
[2019-05-06] MEDS ORDERED: PROCHLORPERAZINE 10 MG TAB PO PRN (23:47)
[2019-05-06] MEDS ORDERED: ONDANSETRON 4 MG TAB PO PRN (23:47)
[2019-05-06] MEDS ORDERED: VANCOMYCIN IV PER PHARMACY 1 EACH MISC MISCELLANE PRN (23:48)
[2019-05-06] MEDS ORDERED: diphenhydrAMINE 50 MG/ML 1 ML VIAL IVP STA (23:50)
[2019-05-06] MEDS ORDERED: VANCOMYCIN 1,000 MG in SODIUM CHLORIDE 0.9% 250 ML IVPB STA (23:57)
[2019-05-07] MEDS: FAMOTIDINE 20 MG TAB PO SCH ×3 (00:11→20:51)
[2019-05-07] MEDS: SODIUM CHLORIDE 0.9% 1,000 ML IV SCH ×3 (00:15→20:51)
--- NOTE | 2019-05-07 00:15 | P.HPIM ---
History of Present Illness H&P Date: 05/06/19 Chief Complaint: Productive cough and shortness of breath 53-year-old male with recent diagnosis of stage IV lung cancer with metastases to the adrenal gland. Was diagnosed around December 2018 Patient comes in today due to worsening symptoms of generalized fatigue and progressive weakness along with shortness of breath coughing productive of foul smelling greenish sputum. Patient indicated the symptoms started during his hospitalization earlier this month where he was hospitalized on 04/20/2019 for dehydration and nausea vomiting. She was discharged is coughing kept on getting worse patient reports some subjective fevers and chills. He denies any chest pain but admits to shortness of breath especially over the past few days with some pleuritic chest pain component at times he does not use any home oxygen he does not use any assistive device for ambulation. He has lost a lot of weight around 80 pounds over the past few months. His most recent chemotherapy dose was yesterday. Patient was diagnosed with lung cancer on December 2018. And he was hospitalized only once earlier in April. Denies any recent traveling or sick contacts. In the ED imaging indicated consolidation of the right upper lung which could be progression of his underlying cancer versus pneumonia. Patient was tachycardic in the ED labs showed hyponatremia anemia and elevated white count. Patient received empiric antibiotics and IV fluid resuscitation in the ED. Was admitted for further care with diagnosis of sepsis secondary to pneumonia Review of Systems Pertinent positives as noted in HPI. All other systems were reviewed and are negative Past Medical History Past Medical History: Cancer, GERD/Reflux Additional Past Medical History / Comment(s): adrenal mass X 2 History of Any Multi-Drug Resistant Organisms: None Reported Past Surgical History: Hernia Repair Additional Past Surgical History / Comment(s): left thumb re-attached Past Anesthesia/Blood Transfusion Reactions: No Reported Reaction Past Psychological History: No Psychological Hx Reported Smoking Status: Former smoker Past Alcohol Use History: None Reported Past Drug Use History: Marijuana - Past Family History Father Family Medical History: Coronary Artery Disease (CAD) Medications and Allergies Home Medications Medication Instructions Recorded Confirmed Type Hydrocodone/Acetaminophen [[place] 1 tab PO Q6H PRN 04/19/19 05/06/19 History 10-325] Prochlorperazine [Compazine] 10 mg PO Q6H PRN 04/19/19 05/06/19 History ALPRAZolam [Xanax] 0.25 mg PO TID PRN 7 Days #21 tab 04/24/19 05/06/19 Rx Famotidine [Pepcid] 20 mg PO BID #60 tab 04/24/19 05/06/19 Rx Megestrol [Megace] 400 mg PO DAILY #100 ml 04/24/19 05/06/19 Rx fentaNYL 50MCG/HR PATCH [[place] 1 patch TRANSDERM Q72H #5 patch 04/24/19 05/06/19 Rx 50MCG/HR] Ondansetron [Zofran] 4 mg PO Q6H PRN 05/06/19 05/06/19 History Allergies Allergy/AdvReac Type Severity Reaction Status Date / Time No Known Allergies Allergy Verified 05/06/19 23:35 Physical Exam Vitals: Vital Signs Temp Pulse Resp BP Pulse Ox 05/06/19 23:37 18 05/06/19 23:03 100.7 F H 115 H 18 119/71 100 05/06/19 20:12 99.5 F 117 H 19 138/90 100 05/06/19 18:51 18 05/06/19 18:41 98.2 F 117 H 18 121/76 98 Intake and Output 05/06/19 05/06/19 05/07/19 14:59 22:59 06:59 Other: Weight 49.895 kg Constitutional: No acute distress, patient seems very tired cachectic Eyes: Anicteric sclerae, moist conjunctiva, no lid-lag Pupils equal round reactive to light ENMT: NC/AT Oropharynx clear, no erythema, exudates Neck: Supple, FROM, no masses, or JVD No carotid bruits No thyromegaly Lungs: Bronchial breathing over right upper lung, no wheezing rales or rhonchi Clear to percussion Normal respiratory effort, no accessory muscle use Cardiovascular: Heart tachycardic No murmurs, gallops, or rubs No peripheral edema Abdominal: Soft Nontender, no guarding, rebound or rigidity Abdomen moving with respiration Normoactive bowel sounds No hepatomegaly, No splenomegaly No palpable mass No abdominal wall hernia noted Skin: Patient has a fentanyl patch over his right shoulder Normal temperature, tone, texture, turgor No induration No subcutaneous nodules No rash, lesions No ulcers Extremities: No digital cyanosis No clubbing Pedal pulses intact and symmetrical Radial pulses intact and symmetrical No calf tenderness Psychiatric: Alert and oriented to person, place and time Appropriate affect fair judgment Neuro Muscles Strength 4/5 in all 4 extremities Sensation to light touch grossly present throughout Cranial nerves II-XII grossly intact No focal sensory deficits Lymphatics: no palpable cervical or supraclavicular , or inguinal lymph nodes Results CBC & Chem 7: 05/06/19 19:30 05/06/19 19:30 Labs: Abnormal Lab Results - Last 24 Hours (Table) 05/06/19 05/06/19 Range/Units 19:30 19:30 WBC 11.0 H (3.8-10.6) k/uL RBC 3.36 L (4.30-5.90) m/uL Hgb 10.0 L (13.0-17.5) gm/dL Hct 30.1 L (39.0-53.0) % Neutrophils # 10.2 H (1.3-7.7) k/uL Lymphocytes # 0.6 L (1.0-4.8) k/uL Sodium 129 L (137-145) mmol/L Chloride 95 L (98-107) mmol/L Creatinine 0.49 L (0.66-1.25) mg/dL Glucose 106 H (74-99) mg/dL ALT 19 L (21-72) U/L Alkaline Phosphatase 188 H (38-126) U/L Albumin 2.9 L (3.5-5.0) g/dL Assessment and Plan Assessment: 53-year-old male with stage IV lung cancer metastases to the adrenal glands. Comes into the hospital with generalized weakness, productive coughing of foul greenish sputum of 2-3 weeks duration along with shortness of breath. Admitted as inpatient with anticipated length of stay more than 2 midnights for acute healthcare associated pneumonia. IV fluid hydration and supportive care Plan: Sepsis secondary to pneumonia Healthcare care associated pneumonia Hypovolemic hypernatremia Dehydration Severe protein calorie malnutrition Stage IV lung cancer Anemia of chronic disease Plan Aggressive IV fluid hydration Check lactic acid Follow-up cultures Patient started on levofloxacin seen and Zosyn in the ER Continue with Zosyn, add vancomycin. (Patient reports symptoms of coughing with foul smelling greenish sputum started since his most recent hospitalization 2 weeks ago) Stage IV cancer with poorly differentiated mass right upper lung, currently progressive in nature cannot rule out underlying obstructive pneumonia Supportive care Continue home meds Patient has chronic pain syndrome continue with home pain medications including fentanyl and [place] Patient quit smoking around 2 weeks ago, counseled regarding the importance of smoking cessation Patient declined the need for nicotine replacement therapy at this time Preformed a thorough record review from recent hospitalization on 04/20/2019 for nausea vomiting and dehydration Surrogate decision-maker: Patient CODE STATUS: Full code DVT prophylaxis: Lovenox Discussed with: Patient, ER, RN Anticipated length of stay more than [address]: Pending clinical course A total of 60 minutes was spent on the care of this complex patient more than 50% of the time was spent in counseling and care coordination.
--- NOTE | 2019-05-07 00:20 | P.HPADDEND ---
H&P Addendum H&P Addendum Date: 05/06/19 Advanced Care Planning Active diagnoses: Sepsis secondary to underlying healthcare associated pneumonia Stage IV lung cancer with metastases to adrenal gland Background: The patient was admitted for treatment of sepsis secondary to underlying pneumonia. Confirmation and clarification of wishes upon admission. Discussion: Person(s) present and participating in discussion: The patient, myself, and patient Summary: Patient understands his underlying diagnosis of stage IV lung cancer that was made recently he has full support of his family to pursue full treatment measures he is hoping in full recovery. His main concern at this point is back pain and the active acute productive coughing which is thought to be secondary to underlying pneumonia. Is requesting full medical measures to be pursued to help him recover from his current illnesses and he is opting for resuscitation and CPR if needed including intubation and ventilatory support if needed. He names his as a surrogate decision maker. He just started chemotherapy for his lung cancer and is hoping for recovery. Patient is hoping to be discharged after this hospital course back to home if possible, but is willing to consider subacute rehab placement if needed Time spent: Total time spent face to face in education and discussion directly related to advanced care plannin minutes
[2019-05-07] MEDS: PIPERACILLIN-TAZOBACTAM 3.375 GM in SODIUM CHLORIDE 0.9% 100 ML IVPB SCH ×2 (07:15→15:29)
[2019-05-07] MEDS: HYDROcodone/APAP 10-325MG 1 EACH TAB PO PRN ×2 (07:15→20:53)
[2019-05-07] MEDS: ENOXAPARIN 40 MG/0.4 ML SYRINGE SQ SCH (07:16)
[2019-05-07] MEDS: MEGESTROL 400 MG/10 ML CUP PO SCH (07:16)
[2019-05-07] MEDS: ALPRAZolam 0.25 MG TAB PO PRN ×3 (08:37→20:51)
[2019-05-07 11:18] VITALS: BMI 16.2
[2019-05-07 11:18] LABS: HCT 24.1 % (39.0-53.0); MCH 29.9 pg (25.0-35.0); MCHC 33.1 g/dL (31.0-37.0); MCV 90.1 fL (80.0-100.0); Platelet Count 274 k/uL (150-450); RBC 2.67 m/uL (4.30-5.90); RDW 12.8 % (11.5-15.5); WBC 7.3 k/uL (3.8-10.6)
[2019-05-07 11:26] LABS: African American GFR (CKD) >90 (>60 ml/min/1.73 sqM); Anion Gap 7 mmol/L; Blood Urea Nitrogen 7 mg/dL (9-20); Calcium 7.6 mg/dL (8.4-10.2); Carbon Dioxide 23 mmol/L (22-30); Chloride 97 mmol/L (98-107); Glucose 85 mg/dL (74-99); Magnesium 1.8 mg/dL (1.6-2.3); Potassium 3.9 mmol/L (3.5-5.1); Sodium 127 mmol/L (137-145)
--- NOTE | 2019-05-07 11:41 | XR ---
EXAMINATION TYPE: XR chest 2V DATE OF EXAM: 05/07/2019 HISTORY: pneumonia. REFERENCE: Previous study dated 05/06/2019. FINDINGS: Lung volumes are prominent. There is a masslike density in the right upper lobe with some questionable central cavitation. The le ft lung is clear. Pleural spaces are clear. The heart is not enlarged. IMPRESSION: RIGHT UPPER LOBE MASSLIKE DENSITY WHICH MAY HAVE DEVELOPED SOME CENTRAL CAVITATION.
[2019-05-07] MEDS: VANCOMYCIN 750 MG in SODIUM CHLORIDE 0.9% 250 ML IVPB SCH ×2 (11:46→17:56)
[2019-05-07] MEDS ORDERED: MORPHINE SULFATE 4 MG/ML SYRINGE IVP PRN (13:37)
[2019-05-07] MEDS ORDERED: ACETAMINOPHEN TAB 325 MG TAB PO PRN (13:37)
--- NOTE | 2019-05-07 13:38 | P.PN ---
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 Valentine last dose 05/05 (appears that patient is on carboplatin, Taxol, tecentriq), GERD, and significant weight loss to presented to the emergency department with complaints of generalized weakness, shortness of breath, and coughing. In the ER he underwent an extensive examination. He was tachycardic in the emergency department with a pulse of 117. Laboratory analysis showed an elevated white blood cell count of 11, sodium 129, chloride 95, ALT 19, alk phos 188, and albumin 2.9. CT chest showed worsening right upper lobe infiltrate as well as known mass. He was started on antibiotics and admitted for further monitoring. Lactic acid was checked after admission which was elevated and he was maintained on normal saline. He does have a history of hyponatremia with baseline sodium around 127. Patient seen and examined at bedside with family present. He states that his cough and shortness of breath is somewhat better since admission. He is having a hard time producing sputum. He still feeling very fatigued. He has no appetite. He has tried Megace at home in the past but does not want to take it at this point in time. He has also tried multiple nutritional supplements including ensure, Magic cups, other protein shakes none of which she has tolerated. Objective - Vital Signs Vital signs: Vital Signs Temp 98.3 F 05/07/19 07:00 Pulse 97 05/07/19 07:00 Resp 12 05/07/19 07:00 BP 107/80 05/07/19 07:00 Pulse Ox 97 05/07/19 07:00 Intake & Output 05/06/19 05/07/19 05/07/19 18:59 06:59 18:59 Intake Total 2898 Balance 2898 Weight 49.895 kg 49.895 kg Intake: Intake, IV Titration 2898 Amount Levofloxacin 750Mg-D5w 150 Pmx 750 mg In Dextrose/ Water 1 150ml.bag @ 100 mls/hr IVPB Q24H [facility] Rx#: [id number] Sodium Chloride 0.9% 1, 500 000 ml @ 100 mls/hr IV . Q10H [facility]BIKA Rx#:[id number] Sodium Chloride 0.9% 1, 1998 000 ml @ 999 mls/hr IV . Q1H1M ONE Rx#:[id number] Vancomycin 1,000 mg In 250 Sodium Chloride 0.9% 250 ml @ 125 mls/hr IVPB ONCE STA Rx#:[id number] Other: # Voids 1 - Exam General: Ill appearing, appears at stated age, cachectic, no distress, temporal wasting Derm: warm, dry Head: atraumatic, normocephalic, symmetric Eyes: EOMI, no lid lag, anicteric sclera Mouth: no lip lesion, mucus membranes moist Cardiovascular: S1S2 reg, no murmur, positive posterior tibial pulse bilateral, Lungs: Coarse breath sounds bilateral , no accessory muscle use Abdominal: soft, nontender to palpation, no guarding, no appreciable organomegaly Ext: no gross muscle atrophy, no edema, no contractures Neuro: CN II-XI grossly intact, no focal neuro deficits Psych: Alert, oriented, appropriate affect - Labs CBC & Chem 7: 05/07/19 10:37 05/07/19 10:37 Labs: Abnormal Lab Results - Last 24 Hours (Table) 05/06/19 05/06/19 05/07/19 Range/Units 19:30 19:30 00:18 WBC 11.0 H (3.8-10.6) k/uL RBC 3.36 L (4.30-5.90) m/uL Hgb 10.0 L (13.0-17.5) gm/dL Hct 30.1 L (39.0-53.0) % Neutrophils # 10.2 H (1.3-7.7) k/uL Lymphocytes # 0.6 L (1.0-4.8) k/uL Sodium 129 L (137-145) mmol/L Chloride 95 L (98-107) mmol/L BUN (9-20) mg/dL Creatinine 0.49 L (0.66-1.25) mg/dL Glucose 106 H (74-99) mg/dL Plasma Lactic Acid David 2.4 H* (0.7-2.0) mmol/L Calcium (8.4-10.2) mg/dL ALT 19 L (21-72) U/L Alkaline Phosphatase 188 H (38-126) U/L Albumin 2.9 L (3.5-5.0) g/dL 05/07/19 05/07/19 05/07/19 Range/Units 05:10 10:37 10:37 WBC (3.8-10.6) k/uL RBC 2.67 L (4.30-5.90) m/uL Hgb 8.0 L D (13.0-17.5) gm/dL Hct 24.1 L (39.0-53.0) % Neutrophils # (1.3-7.7) k/uL Lymphocytes # (1.0-4.8) k/uL Sodium 127 L (137-145) mmol/L Chloride 97 L (98-107) mmol/L BUN 7 L (9-20) mg/dL Creatinine 0.42 L (0.66-1.25) mg/dL Glucose (74-99) mg/dL Plasma Lactic Acid David 0.6 L (0.7-2.0) mmol/L Calcium 7.6 L (8.4-10.2) mg/dL ALT (21-72) U/L Alkaline Phosphatase (38-126) U/L Albumin (3.5-5.0) g/dL Assessment and Plan Assessment: Healthcare associated pneumonia, possible gram-negative with underlying stage IV non-squamous cell lung cancer with metastases to the adrenal glands -Continue with Levaquin, Vanco, Zosyn -Await cultures- sputum and blood -Pulmonary hygiene -Consult oncology and pulmonary -IV fluids Elevated lactic acid on admission -IV fluids -Improved Chronic hyponatremia -Suspect secondary to colon cancer -Continue with IV fluids -Repeat basic metabolic profile in a.m. Severe protein calorie malnutrition with approximately 80 pound weight loss -Dietitian recs -Supplementation -Patient refusing to drink Megace Anemia, due to chemotherapy - suspect drop due to IVF and 2 days out of chemo - repeat CBC in AM Chronic Pain due to malignancy - norco/ fentanyl from home - morphine for break through. DVT prophylaxis: Lovenox Discussed with: Patient, fmaily, nursing Anticipated discharge: 3-[address]: home A total of [35] minutes was spent on the care of this complex patient more than 50% of the time was spent in counseling and care coordination.
[2019-05-07] MEDS ORDERED: IPRATROPIUM-ALBUTEROL 3 ML NEB INHALATION PRN (15:03)
--- NOTE | 2019-05-07 15:03 | P.CNPUL ---
History of Present Illness Consult date: 05/07/19 Requesting physician: Rodney Mcallister Reason for consult: pneumonia Chief complaint: Cough and shortness of breath History of present illness: This is a 53-year-old white male with history of stage IV lung cancer with adrenal metastasis, diagnosed in December of 2018. His diagnoses was done by Dr. Jackson, patient underwent a bronchoscopy transbronchial biopsies of the right upper lobe, and the biopsies were positive for poorly differentiated carcinoma, non-small cell, consistent with lung origin. It was on not clear whether the patient had anginal or squamous cell carcinoma. However the pathologist favored adenocarcinoma. It was recommended to the patient to have chemo/immunotherapy w hich is acceptable for squamous cell and non-squamous cell including carboplatin/Taxol/tecentriq. Patient was also advised to have possibly palliative radiation treatment to the adrenal masses but that was placed on hold. On 04/14, patient had his first cycle which went well, but the next day he lost his appetite and stopped eating. He also developed dry heaves. And became extremely weak. I believe since then the patient had another course of treatment, this time he was admitted with mostly few days history of increased shortness of breath, productive cough with greenish phlegm, intermittent episodes of low-grade fever and chills. Chest x-ray and CT of the chest showed diffuse right upper lobe consolidation with 5 cm zone of cavitation and it also showed the left suprahilar spiculated mass contiguous with the left hilar adenopathy. No evidence of pulmonary embolism. Again the CT of the chest is suggestive of progression of lung cancer as well as pneumonia involving the right upper lobe. Not to mention the patient was noted to have significant emphysematous changes in both lungs. Considering his presentation and his abnormal CT of the chest, this consult was initiated. Patient is now on Levaquin and vancomycin, and Zosyn seems to be tolerating the treatment fairly well so far. Sputum cultures are pending. Review of Systems CONSTITUTIONAL: Weight loss, low-grade fever, chills, shortness of breath, and extremely poor appetite, anorexia. EYES: Denies change in vision. EARS, NOSE, MOUTH, THROAT: Denies headaches, denies sore throat. CARDIOVASCULAR: Denies chest pain, palpitations or syncopal episodes. RESPIRATORY: As noted in HPI. GASTROINTESTINAL: Nausea, poor appetite, dry heaves. GENITOURINARY: Denies hematuria, denies infections. MUSKULOSKELETAL: Denies pain, denies swelling. INTEGUMENTARY: Denies rash, denies eczema. NEUROLOGICAL: Denies any headache blurred vision or dizziness. PSYCHIATRIC: Denies any symptoms of active depression. HEMATOLOGIC/LYMPHATIC: Denies anemia, denies enlarged lymph nodes. Past Medical History Past Medical History: Cancer, GERD/Reflux Additional Past Medical History / Comment(s): adrenal mass X 2 History of Any Multi-Drug Resistant Organisms: None Reported Past Surgical History: Hernia Repair Additional Past Surgical History / Comment(s): left thumb re-attached Past Anesthesia/Blood Transfusion Reactions: No Reported Reaction Past Psychological History: No Psychological Hx Reported Smoking Status: Former smoker Past Alcohol Use History: None Reported Additional Past Alcohol Use History / Comment(s): started smoking at age 17,1ppd Past Drug Use History: Marijuana Additional Drug Use History / Comment(s): uses marijuana every 2 days, - Past Family History Father Family Medical History: Coronary Artery Disease (CAD) Medications and Allergies Home Medications Medication Instructions Recorded Confirmed Type Hydrocodone/Acetaminophen [Ponce 1 tab PO Q6H PRN 04/19/19 05/06/19 History 10-325] Prochlorperazine [Compazine] 10 mg PO Q6H PRN 04/19/19 05/06/19 History ALPRAZolam [Xanax] 0.25 mg PO TID PRN 7 Days #21 tab 04/24/19 05/06/19 Rx Famotidine [Pepcid] 20 mg PO BID #60 tab 04/24/19 05/06/19 Rx Megestrol [Megace] 400 mg PO DAILY #100 ml 04/24/19 05/06/19 Rx fentaNYL 50MCG/HR PATCH [Duragesic 1 patch TRANSDERM Q72H #5 patch 04/24/19 05/06/19 Rx 50MCG/HR] Ondansetron [Zofran] 4 mg PO Q6H PRN 05/06/19 05/06/19 History Allergies Allergy/AdvReac Type Severity Reaction Status Date / Time No Known Allergies Allergy Verified 05/06/19 23:35 Physical Exam Vitals: Vital Signs Temp Pulse Pulse Resp BP BP Pulse Ox 05/07/19 07:00 98.3 F 97 12 107/80 97 05/07/19 00:53 98.4 F 110 H 16 104/66 97 05/06/19 23:37 18 05/06/19 23:03 100.7 F H 115 H 18 119/71 100 05/06/19 20:12 99.5 F 117 H 19 138/90 100 05/06/19 18:51 18 05/06/19 18:41 98.2 F 117 H 18 121/76 98 Intake and Output 05/06/19 05/07/19 05/07/19 22:59 06:59 14:59 Intake Total 2898 Balance 2898 Intake: Intake, IV Titration 2898 Amount Levofloxacin 750Mg-D5w 150 Pmx 750 mg In Dextrose/ Water 1 150ml.bag @ 100 mls/hr IVPB Q24H [facility] Rx#: [id number] Sodium Chloride 0.9% 1, 500 000 ml @ 100 mls/hr IV . Q10H [facility] Rx#:[id number] Sodium Chloride 0.9% 1, 1998 000 ml @ 999 mls/hr IV . Q1H1M ONE Rx#:[id number] Vancomycin 1,000 mg In 250 Sodium Chloride 0.9% 250 ml @ 125 mls/hr IVPB ONCE STA Rx#:[id number] Other: # Voids 1 Weight 49.895 kg 49.895 kg Physical Exam: Revealed a 53-year-old white male cachectic, in no distress, there is evidence of temporal wasting. Head: Atraumatic, normocephalic. HEENT: PERRLA, EOMI, no icterus. [Neck is supple.] [No neck masses.] [No thyromegaly.] [No JVD.] No evidence of lid lag. Chest: Symmetrical chest expansion. [Coarse breath sounds bilaterally. No wheezes.] Cardiac Exam: [Normal S1 and S2, no S3 gallop, no murmur.] Abdomen: [Soft, nontender, no megaly, no rebound, no guarding, normal bowel sounds.] Extremities: [No clubbing, no edema, no cyanosis.] Good pulses bilaterally. Neurological Exam: Alert and oriented 3. [No focal neurologic deficit. Psychiatric: Normal mood, affect and normal mental status examination.] Lymphatics: No lymphadenopathy. Skin: No rashes Results - Laboratory Findings CBC and BMP: 05/07/19 10:37 10/26/19 10:37 Abnormal lab findings: Abnormal Labs 05/06/19 05/06/19 05/07/19 19:30 19:30 00:18 WBC 11.0 H RBC 3.36 L Hgb 10.0 L Hct 30.1 L Neutrophils # 10.2 H Lymphocytes # 0.6 L Sodium 129 L Chloride 95 L BUN Creatinine 0.49 L Glucose 106 H Plasma Lactic Acid David 2.4 H* Calcium ALT 19 L Alkaline Phosphatase 188 H Albumin 2.9 L 05/07/19 05/07/19 05/07/19 05:10 10:37 10:37 WBC RBC 2.67 L Hgb 8.0 L D Hct 24.1 L Neutrophils # Lymphocytes # Sodium 127 L Chloride 97 L BUN 7 L Creatinine 0.42 L Glucose Plasma Lactic Acid David 0.6 L Calcium 7.6 L ALT Alkaline Phosphatase Albumin - Diagnostic Findings Chest x-ray: image reviewed (As noted in HPI.) CT scan - chest: image reviewed (As noted in HPI.) Assessment and Plan Assessment: Impression: 1 extensive right upper lobe pneumonia likely healthcare associated pneumonia, most likely gram-negative in nature unless proven otherwise. 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 6 suspect severe underlying COPD, emphysema based on CT of the chest findings. Recommendation: Continue present broad-spectrum course of antibiotics. Continue bronchodilators. Continue GI and DVT prophylaxis. Continue pain control. Continue Megace Repeat chest x-ray in the next 2-3 days, consider bronchoscopy if not much i mprovement noted over the next few days. Had a long discussion with the patient and his at bedside, overall prognosis is extremely poor and guarded. We'll continue to follow. Time with Patient: Greater than 30
[2019-05-07] MEDS: guaiFENesin 600 MG TABLET.ER PO SCH ×2 (15:36→20:51)
[2019-05-07] MEDS: MAG HYDROX/AL HYDROX/SIMETH 30 ML, LIDOCAINE VISCOUS 30 ML, diphenhydrAMINE ELIXIR 75 M... PO SCH ×8 (15:36→20:51)
[2019-05-08] MEDS: LEVOFLOXACIN 750MG-D5W PMX 750 MG in DEXTROSE/WATER 1 150ML.BAG IVPB SCH (01:01)
[2019-05-08] MEDS: PIPERACILLIN-TAZOBACTAM 3.375 GM in SODIUM CHLORIDE 0.9% 100 ML IVPB SCH ×3 (02:39→16:35)
[2019-05-08] MEDS: VANCOMYCIN 750 MG in SODIUM CHLORIDE 0.9% 250 ML IVPB SCH ×2 (02:40→11:34)
[2019-05-08] MEDS: ALPRAZolam 0.25 MG TAB PO PRN (04:30)
[2019-05-08] MEDS ORDERED: VANCOMYCIN TROUGH DUE 1 EACH MISC MISCELLANE ONE (08:00)
[2019-05-08 08:04] LABS: HGB 8.2 gm/dL (13.0-17.5); MCH 29.4 pg (25.0-35.0); MCHC 32.7 g/dL (31.0-37.0); MCV 89.7 fL (80.0-100.0); Mean Platelet Volume 6.3; Platelet Count 258 k/uL (150-450); RBC 2.78 m/uL (4.30-5.90); RDW 12.8 % (11.5-15.5); WBC 6.2 k/uL (3.8-10.6)
[2019-05-08] MEDS: guaiFENesin 600 MG TABLET.ER PO SCH ×2 (08:07→21:42)
[2019-05-08] MEDS: MEGESTROL 400 MG/10 ML CUP PO SCH (08:07)
[2019-05-08] MEDS: SODIUM CHLORIDE 0.9% 1,000 ML IV SCH ×2 (08:07→18:46)
[2019-05-08] MEDS: ENOXAPARIN 40 MG/0.4 ML SYRINGE SQ SCH (08:07)
[2019-05-08] MEDS: FAMOTIDINE 20 MG TAB PO SCH ×2 (08:07→21:42)
[2019-05-08] MEDS: HYDROcodone/APAP 10-325MG 1 EACH TAB PO PRN ×3 (08:09→21:42)
[2019-05-08 08:25] LABS: African American GFR (CKD) >90 (>60 ml/min/1.73 sqM); Anion Gap 8 mmol/L; Blood Urea Nitrogen 6 mg/dL (9-20); Calcium 7.7 mg/dL (8.4-10.2); Carbon Dioxide 24 mmol/L (22-30); Chloride 95 mmol/L (98-107); Glucose 87 mg/dL (74-99); Magnesium 1.7 mg/dL (1.6-2.3); Potassium 3.5 mmol/L (3.5-5.1); Sodium 127 mmol/L (137-145)
[2019-05-08] MEDS ORDERED: SODIUM CHLORIDE TAB 1 GM TAB PO STA (08:38)
[2019-05-08] MEDS: MAG HYDROX/AL HYDROX/SIMETH 30 ML, LIDOCAINE VISCOUS 30 ML, diphenhydrAMINE ELIXIR 75 M... PO SCH ×12 (10:21→21:45)
[2019-05-08] MEDS: VANCOMYCIN 1,000 MG in SODIUM CHLORIDE 0.9% 250 ML IVPB SCH ×2 (10:21→18:44)
[2019-05-08] MEDS: ALPRAZolam 0.5 MG TAB PO PRN ×2 (10:22→16:33)
[2019-05-08] MEDS ORDERED: VANCOMYCIN IV PER PHARMACY 1 EACH MISC MISCELLANE PRN (11:59)
--- NOTE | 2019-05-08 12:00 | P.PN ---
Subjective Progress Note Date: 05/08/19 Patient is a 53-year-old male with a PMH of recently diagnosed poorly differentiated stage IV non-small cell lung cancer with metastasis to the adrenal gland, currently following with Dr. Lopez and receiving chemotherapy (currently on Carboplatin and Taxol) w/ last dose on 05/05, cachexia secondary to advanced malignancy, had presented to the emergency room with complaints of shortness of breath, lethargy, and coughing. The patient was noted to be tachycardic in the emergency room with a WBC count of 11, hyponatremic with a sodium of 129, with involvement of 2.9. Patient had undergone a CT chest which showed a worsening right upper lobe infiltrate along with the previously seen mass. Patient was subsequently started on IV antibiotics and was admitted for further management of healthcare associated pneumonia. Patient was seen and evaluated at the bedside on 05/08. The patient reported no chest discomfort or pain, though did say that he continues to feel weak and just overall ill. He noted that his breathing is somewhat improved. He also endorsed continued anorexia and difficulty with his appetite. He denied fever, chills, nausea, or vomiting. Objective - Vital Signs Vital signs: Vital Signs Temp 98 F 05/08/19 07:00 Pulse 107 H 05/08/19 07:00 Resp 16 05/08/19 07:00 BP 123/78 05/08/19 07:00 Pulse Ox 98 05/08/19 07:00 Intake & Output 05/07/19 05/08/19 05/08/19 18:59 06:59 18:59 Intake Total 100 Balance 100 Weight 49.895 kg Intake: Oral 100 Other: Voiding Method Toilet # Voids 1 1 - Exam General: Ill appearing cachectic M, in no acute distress HEENT: NC/AT, anicteric sclerae, no lid-lag, PERRLA Cardiovascular: S1/S2 wnl, no murmurs, rubs, or gallops Lungs: Scattered ronchi, no rales or wheezing appreciated, normal respiratory effort, no accessory muscle use Abdominal: Soft, non-tender, non-distended, no guarding, rebound, or rigidity Skin: Warm, dry Extremities: No edema or contractures Psychiatric: Alert and oriented to person, place and time, appropriate affect Neuro: CN II-XII grossly intact, no focal deficits - Labs CBC & Chem 7: 05/08/19 07:45 05/08/19 07:42 Labs: Abnormal Lab Results - Last 24 Hours (Table) 05/07/19 05/07/19 05/08/19 Range/Units 10:37 10:37 07:42 RBC 2.67 L (4.30-5.90) m/uL Hgb 8.0 L D (13.0-17.5) gm/dL Hct 24.1 L (39.0-53.0) % Sodium 127 L 127 L (137-145) mmol/L Chloride 97 L 95 L (98-107) mmol/L BUN 7 L 6 L (9-20) mg/dL Creatinine 0.42 L 0.40 L (0.66-1.25) mg/dL Calcium 7.6 L 7.7 L (8.4-10.2) mg/dL 05/08/19 Range/Units 07:45 RBC 2.78 L (4.30-5.90) m/uL Hgb 8.2 L (13.0-17.5) gm/dL Hct 25.0 L (39.0-53.0) % Sodium (137-145) mmol/L Chloride (98-107) mmol/L BUN (9-20) mg/dL Creatinine (0.66-1.25) mg/dL Calcium (8.4-10.2) mg/dL Microbiology - Last 24 Hours (Table) 05/06/19 22:45 Blood Culture - Preliminary Blood No Growth after 24 hours Assessment and Plan Plan: Healthcare associated pneumonia in the setting of stage IV non-small cell lung cancer, undergoing chemotherapy -Continue with Levaquin, vancomycin, Zosyn for now -Awaiting cultures -Pulmonary recommendations appreciated -Continue with IV fluids Hyponatremia, chronic -Likely secondary to malignancy -Monitor BMP and continue with IV fluids Normocytic anemia -Likely secondary to advanced malignancy -Monitor for now Severe protein calorie malnutrition with significant weight loss in setting of malignancy -Dietitian recommended appreciated -Continue with supplements Pain likely secondary to malignancy -Continue with opiates Lactic acidosis, resolved DVT prophylaxis -Lovenox Discussed with: Patient Anticipated discharge date: 2-[address]: Home w/ palliative care A total of 35 minutes was spent on the care of this complex patient more than 50% of the time was spent in counseling and care coordination.
--- NOTE | 2019-05-08 12:56 | CONS ---
CONSULTATION REASON FOR CONSULT: Hyponatremia. HISTORY OF PRESENT ILLNESS: The patient is a 53-year-old male who was admitted to the hospital with complaints of cough and shortness of breath. The patient has underlying stage IV lung cancer with adrenal metastasis diagnosed in December of 2018. Patient's serum sodium was 129 on 05/06/2019. He is maintained on normal saline. His sodium was down to 127. Patient has not been eating. His blood pressure remains on the lower side and this sodium again was 127 this morning. Urine osmolality, urine sodium is currently pending. PAST MEDICAL HISTORY: Stage IV lung cancer with adrenal metastasis, gastroesophageal reflux. PAST SURGICAL HISTORY: Hernia repair, surgery on left thumb. SOCIAL HISTORY: Patient is a former smoker. History of use of marijuana. MEDICATIONS: Medications prior to admission included Compazine, Xanax, Pepcid, Zofran, Megace. ALLERGIES: None. EXAMINATION: Patient is comfortable, awake, not in any acute distress. Blood pressure 123/78, heart rate 107 per minute. He is afebrile. Examination of the heart S1, S2. Examination of the lungs, bilateral breath sounds are heard. ABDOMEN: Soft, nontender. Examination of lower extremities shows no evidence of edema. ECONOMIC ADVISER exam grossly intact. LABS: Show sodium 127, potassium 3.5, chloride 95, BUN 6, creatinine 0.4, hemoglobin 8.2 g/dL. ASSESSMENT: 1. Hyponatremia, hypovolemic versus euvolemic associated with Syndrome of inappropriate antidiuretic hormone. Serum sodium did go down initially from 129- 127. However, currently staying at about 127. I will check a urine osmolality and urine sodium along with cortisol and TSH level. Continue with the normal saline for now repeat sodium in about 4-5 hours. Continue to encourage increased oral intake. If the urine osmolality is elevated, I will decrease the saline. Patient may benefit from dose of Samsca/tolvaptan if there is underlying Syndrome of inappropriate antidiuretic hormone. 2. Stage IV lung cancer. 3. Anemia multifactorial. PLAN: Continue with saline sodium chloride tab x1 now. Check urine osmolality. Check urine sodium. Repeat sodium later today. Thank you for this consultation. We will continue to follow the patient with you during his hospitalization. MMODL / IJN: [id number] /
--- NOTE | 2019-05-08 13:03 | P.PN ---
Subjective Progress Note Date: 05/08/19 Principal diagnosis: Right upper lobe pneumonia and stage IV non-small cell lung cancer. 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 His diagnoses was done by Dr. Jackson, patient underwent a bronchoscopy transbronchial biopsies of the right upper lobe, and the biopsies were positive for poorly differentiated carcinoma, non-small cell, consistent with lung origin. It was on not clear whether the patient had anginal or squamous cell carcinoma. However the pathologist favored adenocarcinoma. It was recommended to the patient to have chemo/immunotherapy which is acceptable for squamous cell and non-squamous cell including carboplatin/Taxol/tecentriq. Patient was also advised to have possibly palliative radiation treatment to the adrenal masses but that was placed on hold. On 04/14, patient had his first cycle which went well, but the next day he lost his appetite and stopped eating. He also developed dry heaves. And became extremely weak. I believe since then the patient had another course of treatment, this time he was admitted with mostly few days history of increased shortness of breath, productive cough with greenish phlegm, intermittent episodes of low-grade fever and chills. Chest x-ray and CT of the chest showed diffuse right upper lobe consolidation with 5 cm zone of cavitation and it also showed the left suprahilar spiculated mass contiguous with the left hilar a denopathy. No evidence of pulmonary embolism. Again the CT of the chest is suggestive of progression of lung cancer as well as pneumonia involving the right upper lobe. Not to mention the patient was noted to have significant emphysematous changes in both lungs. Considering his presentation and his abnormal CT of the chest, this consult was initiated. Patient is now on Levaquin and vancomycin, and Zosyn seems to be tolerating the treatment fairly well so far. Sputum cultures are pending. Reevaluated today on 05/08/2019, patient is feeling a bit better, remained generally weak, continues to have poor appetite, denies any chest discomfort, he has intermittent episodes of cough, productive, but no hemoptysis, no fever, no chills, no chest pain. Patient feels possibly tiny bit improved compared to yesterday, but feels generally weak, tired, exhausted, but not short of breath at rest. Labs were reviewed including his CBC and his sodium today is 127 unchanged compared to yesterday. Objective - Vital Signs Vital signs: Vital Signs Temp 98 F 05/08/19 07:00 Pulse 107 H 05/08/19 07:00 Resp 16 05/08/19 07:00 BP 123/78 05/08/19 07:00 Pulse Ox 98 05/08/19 07:00 Intake & Output 05/07/19 05/08/19 05/08/19 18:59 06:59 18:59 Intake Total 100 Balance 100 Weight 49.895 kg Intake: Oral 100 Other: Voiding Method Toilet # Voids 1 1 - Exam Physical Exam: Revealed a 53-year-old white male cachectic, in no distress, ther e is evidence of temporal wasting. Head: Atraumatic, normocephalic. HEENT: PERRLA, EOMI, no icterus. [Neck is supple.] [No neck masses.] [No thyromegaly.] [No JVD.] No evidence of lid lag. Chest: Symmetrical chest expansion. [Coarse breath sounds bilaterally. No wheezes.] Cardiac Exam: [Normal S1 and S2, no S3 gallop, no murmur.] Abdomen: [Soft, nontender, no megaly, no rebound, no guarding, normal bowel sounds.] Extremities: [No clubbing, no edema, no cyanosis.] Good pulses bilaterally. Neurological Exam: Alert and oriented 3. [No focal neurologic deficit. Psychiatric: Normal mood, affect and normal mental status examination.] Lymphatics: No lymphadenopathy. Skin: No rashes - Labs CBC & Chem 7: 05/08/19 07:45 05/08/19 07:42 Labs: Abnormal Lab Results - Last 24 Hours (Table) 05/08/19 05/08/19 Range/Units 07:42 07:45 RBC 2.78 L (4.30-5.90) m/uL Hgb 8.2 L (13.0-17.5) gm/dL Hct 25.0 L (39.0-53.0) % Sodium 127 L (137-145) mmol/L Chloride 95 L (98-107) mmol/L BUN 6 L (9-20) mg/dL Creatinine 0.40 L (0.66-1.25) mg/dL Calcium 7.7 L (8.4-10.2) mg/dL Microbiology - Last 24 Hours (Table) 05/06/19 22:45 Blood Culture - Preliminary Blood No Growth after 24 hours Assessment and Plan Assessment: Impression: 1 extensive right upper lobe pneumonia likely healthcare associated pneumonia, most likely gram-negative in nature unless proven otherwise. 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 6 suspect severe underlying COPD, emphysema based on CT of the chest findings. Recommendation: Continue present broad-spectrum course of antibiotics. Continue bronchodilators. Continue GI and DVT prophylaxis. Continue pain control. Continue Megace Repeat chest x-ray in the next 2-3 days, consider bronchoscopy if not much improvement noted over the next few days. We'll continue to follow. Prognosis is definitely poor. Time with Patient: Less than 30
--- NOTE | 2019-05-08 15:47 | CONS ---
CONSULTATION DATE OF SERVICE: May 08, 2019. REASON FOR CONSULTATION: Lung cancer. CHIEF COMPLAINT: Weakness, and cough. HISTORY OF PRESENT ILLNESS: Olu is a very pleasant 53 years old gentleman, well known to me, who was initially evaluated on March 01, 2019, in the outpatient setting and he presented with worsening back pain radiating across his abdomen of about 5 months duration prior to his admission. This led to a CT scan of the abdomen and pelvis on January 18, 2019, which revealed a very large bilateral adrenal masses. This was confirmed on subsequent MRI he had on February 23, 2019 and also in addition to the adrenal masses, there was some intraabdominal adenopathy noted as well. The patient subsequently had further imaging study of the chest, which revealed bilateral lung masses. He initially was supposed to have a biopsy of the adrenal mass. However, the procedure aborted because he could not cooperate well for the procedure and subsequently was referred to Dr. Jackson. He had a bronchoscopy and biopsy of the right upper lobe and the left upper lobe lesion were positive for poorly differentiated carcinoma, non-small cell, consistent with lung origin. It was very difficult to determine whether it was adenoma or squamous cell, since it was very poorly differentiated, but it was felt to me to be favoring more adenocarcinoma of the lung. His PD L1 was 60% positive. Nex[employer] sequencing did not reveal any actionable mutation due to his bulky and symptomatic disease causing significant back pain from his bilateral adrenal masses and he was started on the combination of chemoimmunotherapy with carboplatin, Taxol, and Tecentriq. This treatment was started on 04/14/2019 and he has had 2 cycles so far. He presented to the hospital this time because of right after the 2nd cycle of chemo, he felt tired. He lost his appetite. He has worsening dyspnea, productive cough of greenish phlegm with intermittent episodes of low-grade fever. He had a chest x-ray and then CT scan of the chest revealed diffuse right upper lobe consolidation with 5 cm zone of cavitation. It also showed left suprahilar spiculated mass and left hilar adenopathy. There was no pulmonary embolus. Also, he did have a CT scan of the abdomen and pelvis which revealed stable bilateral adrenal masses. However, there was slight improvement in his intraabdominal adenopathy. The patient ended up being admitted to the hospital for pneumonia and started on IV antibiotics and cultures were obtained. Overall, he is very weak. His appetite dropped after the 2nd round of the cycle of chemotherapy. He has lost about 2 or 3 pounds over the last week. He still has some cough productive of brownish sputum. No fever or chills. No dysphagia. No nausea or vomiting. His back pain is controlled with the current pain medication regimen. No melena, hematochezia, hematuria, hemoptysis, hematemesis or epistaxis, but he is overall weak and tired. PAST MEDICAL HISTORY: Other than what is stated above is otherwise negative. SURGICAL HISTORY: Thumb surgery in the past. ALLERGIES: No known drug allergies. FAMILY HISTORY: His paternal grandfather had colon cancer. His aunt had cancer of the ovaries. Maternal aunt had breast cancer. SOCIAL HISTORY: He smoked from 1979 until April 2019. No alcohol abuse. He uses marijuana. He is . ALLERGIES: There is no known drug allergy. CURRENT MEDICATION: Reviewed in his electronic medical record. PHYSICAL EXAMINATION: He is alert, oriented x3. He does not appear to be in distress, but he is weak and somewhat cachectic. His temperature is 98.0, and he has been afebrile. Pulse 107, respirations 16, blood pressure 123/78. HEENT: Normocephalic, atraumatic. No obvious icterus. NECK: Supple. Chest equal expansion bilaterally. LUNGS: Crackles in the right upper lobe. Heart is tachy, regular. ABDOMEN: Soft. There is no tenderness. Extremities revealed no edema. Skin no significant bruises. Lymphatics: No peripheral enlarged cervical or supraclavicular nodes. Musculoskeletal: No percussion tenderness detected over the spine or sternum. RECENT LABORATORY DATA: WBC are 6.2, hemoglobin 8.2, hematocrit 25.0, platelet 258. Sodium 127, potassium 3.5, chloride 95, CO2 is 24, BUN is 6, creatinine 0.4. IMPRESSION: 1. Metastatic non-small cell lung carcinoma with diagnostic and therapeutic circumstances stated above. The patient has very bulky disease. Recent CT scan revealed relatively stable findings without definitive progression. 2. Hyponatremia, is probably in part hypovolemic rather than related to Syndrome of inappropriate antidiuretic hormone. His sodium in the outpatient setting at the time of diagnosis and also when it was checked at the time of diagnosis it was normal. He has been seen by Nephrology and additional workup has been ordered and his sodium has been relatively stable. 3. Right upper lobe pneumonia. 4. Generalized cachexia and weakness. 5. Abdominal pain and lower back pain related to his bulky adrenal gland metastases. RECOMMENDATION: 1. His pain currently appears to be under control. We will continue current pain medication regimen. 2. Continue current antibiotics as ordered by pulmonary service. 3. Monitor his sodium and electrolytes and IV fluids as recommended by Nephrology. 4. His anemia is multifactorial in part related to his malignancy and in part related to recent chemotherapy treatment. 5. I did discuss the CAT scan finding with the patient and his . It is relatively stable in regard to his malignancy, but overall prognosis is guarded in view of his bulky disease and poor tolerance to systemic treatment. Thank you very much for asking me to participate in the care of this nice gentleman. MMSHARAL / IJN: [id number] /
[2019-05-08] MEDS: ONDANSETRON 4 MG/2 ML VIAL IVP PRN (16:39)
[2019-05-08] MEDS: diphenhydrAMINE 25 MG CAP PO PRN (21:42)
[2019-05-09] MEDS: PIPERACILLIN-TAZOBACTAM 3.375 GM in SODIUM CHLORIDE 0.9% 100 ML IVPB SCH ×4 (01:32→23:35)
[2019-05-09] MEDS: VANCOMYCIN 1,000 MG in SODIUM CHLORIDE 0.9% 250 ML IVPB SCH ×3 (01:33→16:31)
[2019-05-09] MEDS: SODIUM CHLORIDE 0.9% 1,000 ML IV SCH ×3 (03:35→21:35)
[2019-05-09] MEDS: LEVOFLOXACIN 750MG-D5W PMX 750 MG in DEXTROSE/WATER 1 150ML.BAG IVPB SCH ×2 (05:16→21:54)
[2019-05-09] MEDS: ONDANSETRON 4 MG/2 ML VIAL IVP PRN ×2 (05:16→11:09)
[2019-05-09 07:38] LABS: African American GFR (CKD) >90 (>60 ml/min/1.73 sqM)
[2019-05-09] MEDS: ENOXAPARIN 40 MG/0.4 ML SYRINGE SQ SCH (09:00)
[2019-05-09] MEDS: guaiFENesin 600 MG TABLET.ER PO SCH ×2 (09:00→21:32)
[2019-05-09] MEDS: FAMOTIDINE 20 MG TAB PO SCH ×2 (09:00→21:32)
[2019-05-09] MEDS: MEGESTROL 400 MG/10 ML CUP PO SCH (09:00)
[2019-05-09] MEDS: MAG HYDROX/AL HYDROX/SIMETH 30 ML, LIDOCAINE VISCOUS 30 ML, diphenhydrAMINE ELIXIR 75 M... PO SCH ×12 (09:01→21:33)
[2019-05-09 09:08] LABS: Potassium 3.5 mmol/L (3.5-5.1)
[2019-05-09] MEDS ORDERED: POTASSIUM CHLORIDE ER 20 MEQ TAB.ER PO STA (11:41)
--- NOTE | 2019-05-09 11:41 | P.PN ---
Subjective Patient is seen in follow-up for hyponatremia. Sodium level is 127 today. Currently maintained on normal saline at 100 mL an hour. Oral intake is poor. He is only drinking fluids. Vital signs are stable. General: The patient appeared well nourished and normally developed. HEENT: Head exam is unremarkable. Neck is without jugular venous distension. LUNGS: Lungs are clear to auscultation and percussion. Breath sounds decreased. HEART: Rate and Rhythm are regular. First and second heart sounds normal. No murmurs, rubs or gallops. ABDOMEN: Abdominal exam reveals normal bowel sounds. Non-tender and non- distended. No evidence of peritonitis. EXTREMITITES: No clubbing, cyanosis, or edema. Objective - Vital Signs Vital signs: Vital Signs Temp 98.2 F 05/09/19 08:59 Pulse 118 H 05/09/19 08:59 Resp 16 05/09/19 07:00 BP 101/73 05/09/19 07:00 Pulse Ox 98 05/09/19 07:00 Intake & Output 05/08/19 05/09/19 05/09/19 18:59 06:59 18:59 Other: # Voids 1 - Labs CBC & Chem 7: 05/08/19 07:45 05/09/19 06:38 Labs: Abnormal Lab Results - Last 24 Hours (Table) 05/08/19 05/09/19 05/09/19 Range/Units 13:53 06:38 06:38 Sodium 125 L 127 L (137-145) mmol/L Chloride 96 L (98-107) mmol/L Creatinine 0.41 L (0.66-1.25) mg/dL Microbiology - Last 24 Hours (Table) 05/06/19 22:45 Blood Culture - Preliminary Blood No Growth after 48 hours Assessment and Plan Plan: Assessment: 1. Hypovolemic hyponatremia improving with IV hydration. Also concern for underlying SIADH due to malignancy. Sodium level CXXVII today. Urine osmolality noted to be high at 553. TSH and cortisol normal. 2. Stage IV lung cancer. Oncology following. 3. Mild hypokalemia from poor oral intake. Rule out magnesium deficiency. Plan: Maintain normal saline at 100 mL an hour. 1200 mL fluid restriction. Encourage oral intake, particularly protein. Replace potassium. 40 mEq today. Repeat electrolytes in the morning.
--- NOTE | 2019-05-09 13:55 | PN ---
PROGRESS NOTE DATE OF SERVICE: 05/09/2019 This is a 53-year-old gentleman who looks much older than his stated age. 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 He was admitted with an extensive right upper lobe pneumonia, likely healthcare associated. The patient is only a little better today. He is profoundly weak and has significant debilitation. He has severe anorexia/cachexia syndrome and looks much older than his stated age. He also suffers from chronic anemia, hyponatremia, likely secondary to SIADH and likely underlying severe COPD based on examination and chest x-ray. Anyway, the patient is a bit better today than he was yesterday. We did put an order in for a chest x-ray to be done tomorrow. The patient is on good antibiotics, breathing treatments and usual medications. Current vital signs are reviewed. Temperature 98.2, heart rate 118, respiratory rate 16, blood pressure 101/73 mean 82, 2 L saturation 98%. Appears in no acute distress. No audible wheezing, use of accessory muscles or conversational dyspnea. HEENT: Examination is grossly unremarkable. Mucous membranes are moist. No oral lesions. NECK: Supple. Full range of motion. No adenopathy. Neck veins are flat. CARDIOVASCULAR: Examination reveals regular rhythm and rate. Heart rate about 110. It is regular. S1, S2 normal. LUNGS: Reveal coarse rhonchi. Breath sounds are diminished. There is prolongation. No crackles. ABDOMEN: Soft. Bowel sounds are heard. EXTREMITIES: Intact. No cyanosis, clubbing, or edema. SKIN: Without rash. NEUROLOGIC: Examination is brief but nonfocal. LABS: Reviewed. From today, sodium 127 up from 125, potassium 3.5, chloride 96, CO2 is 22 anion gap is 9, creatinine is 0.41. Laboratory data is otherwise unremarkable. Blood cultures are negative thus far. Chest x-ray from 05/07 shows an extensive infiltrate with masslike density in the right upper lobe. There may be some mild cavitation. Medications are reviewed. He remains on appropriate medications including Levaquin and Zosyn as an antibiotic. He also remains on vancomycin. ASSESSMENT: 1. Extensive right upper lobe pneumonia, likely healthcare-acquired and possibly gram- negative in etiology. 2. Stage IV non-small cell lung cancer with adrenal metastasis. 3. Severe protein calorie malnutrition. 4. Status post 2 rounds of chemotherapy. 5. Chronic anemia secondary to chemotherapy and anemia of chronic disease. 6. Chronic hyponatremia, likely secondary to SIADH. 7. Suspect severe underlying chronic obstructive pulmonary disease based on patient's chest x-ray and examination. PLAN: The patient will continue with broad-spectrum antibiotics. Currently, he is on vancomycin, Zosyn and Levaquin. Continue with breathing treatments, GI, DVT prophylaxis, and Megace for appetite enhancement. Overall, the patient has profound anorexia cachexia syndrome. Overall prognosis remains poor. Will continue to follow. Chest x-ray in the morning. MMODL / IJN: [id number] /
[2019-05-09] MEDS ORDERED: VANCOMYCIN TROUGH DUE 1 EACH MISC MISCELLANE ONE (15:00)
--- NOTE | 2019-05-09 15:55 | P.PN ---
Subjective Progress Note Date: 05/09/19 Patient is a 53-year-old male with a PMH of recently diagnosed poorly differentiated stage IV non-small cell lung cancer with metastasis to the adrenal gland, currently following with Dr. Lopez and receiving chemotherapy (currently on Carboplatin and Taxol) w/ last dose on 05/05, cachexia secondary to advanced malignancy, had presented to the emergency room with complaints of shortness of breath, lethargy, and coughing. The patient was noted to be tachycardic in the emergency room with a WBC count of 11, hyponatremic with a sodium of 129, with involvement of 2.9. Patient had undergone a CT chest which showed a worsening right upper lobe infiltrate along with the previously seen mass. Patient was subsequently started on IV antibiotics and was admitted for further management of healthcare associated pneumonia. Patient was seen and evaluated at the bedside on 05/09. The patient notes feeling ill and continued poor appetite. He denied chest pain, SOB, fever, or chills. Objective - Vital Signs Vital signs: Vital Signs Temp 98.3 F 05/09/19 14:26 Pulse 115 H 05/09/19 14:26 Resp 16 05/09/19 14:26 BP 112/65 05/09/19 14:26 Pulse Ox 98 05/09/19 14:26 Intake & Output 05/08/19 05/09/19 05/09/19 18:59 06:59 18:59 Intake Total 800 Balance 800 Weight 49.895 kg Intake: IV 800 Sodium Chloride 0.9% 1, 800 000 ml @ 100 mls/hr IV . Q10H [facility] Rx#:[id number] Other: Voiding Method Toilet # Voids 1 2 - Exam General: Ill appearing cachectic M, in no acute distress HEENT: NC/AT, anicteric sclerae, no lid-lag, PERRLA Cardiovascular: S1/S2 wnl, no murmurs, rubs, or gallops Lungs: Scattered ronchi, no rales or wheezing appreciated, normal respiratory effort, no accessory muscle use Abdominal: Soft, non-tender, non-distended, no guarding, rebound, or rigidity Skin: Warm, dry Extremities: No edema or contractures Psychiatric: Alert and oriented to person, place and time, appropriate affect Neuro: CN II-XII grossly intact, no focal deficits - Labs CBC & Chem 7: 05/08/19 07:45 05/09/19 06:38 Labs: Abnormal Lab Results - Last 24 Hours (Table) 05/09/19 05/09/19 Range/Units 06:38 06:38 Sodium 127 L (137-145) mmol/L Chloride 96 L (98-107) mmol/L Creatinine 0.41 L (0.66-1.25) mg/dL Microbiology - Last 24 Hours (Table) 05/06/19 22:45 Blood Culture - Preliminary Blood No Growth after 48 hours Assessment and Plan Plan: Healthcare associated pneumonia in the setting of stage IV non-small cell lung cancer, undergoing chemotherapy -Continue with Levaquin, vancomycin, Zosyn for now -Awaiting cultures -Pulmonary recommendations appreciated -Continue with IV fluids Hyponatremia, chronic -Likely secondary to malignancy -Monitor BMP and continue with IV fluids -Nephrology recs appreciated -C/w IVFs NS for now Normocytic anemia -Likely secondary to advanced malignancy -Monitor for now Severe protein calorie malnutrition with significant weight loss in setting of malignancy -Dietitian recommended appreciated -Continue with supplements Pain likely secondary to malignancy -Continue with opiates Lactic acidosis, resolved DVT prophylaxis -Lovenox Discussed with: Patient Anticipated discharge date: 2-[address]: Home w/ palliative care A total of 35 minutes was spent on the care of this complex patient more than 50% of the time was spent in counseling and care coordination.
[2019-05-09] MEDS: diphenhydrAMINE 25 MG CAP PO PRN (21:32)
[2019-05-09] MEDS: VANCOMYCIN 1,250 MG in SODIUM CHLORIDE 0.9% 250 ML IVPB SCH (23:34)
[2019-05-10] MEDS: SODIUM CHLORIDE 0.9% 1,000 ML IV SCH (08:22)
[2019-05-10] MEDS: FAMOTIDINE 20 MG TAB PO SCH ×2 (08:24→20:22)
[2019-05-10] MEDS: guaiFENesin 600 MG TABLET.ER PO SCH ×2 (08:24→20:22)
[2019-05-10] MEDS: MEGESTROL 400 MG/10 ML CUP PO SCH (08:24)
--- NOTE | 2019-05-10 08:30 | XR ---
EXAMINATION TYPE: XR chest 1V portable DATE OF EXAM: 05/10/2019 Comparison: 05/07/2019 Clinical History: 53-year-old male pneumonia Findings: Heart normal size. Aorta and bony vasculature within normal limits. Hyperinflation. Extensive focal c onsolidation and probable underlying cavitation persists in the right upper lobe. No pleural effusion . Impression: Persistent cavitary mass versus cavitary pneumonia versus atypical fungal/mycobacterial infection inv olving the right upper lobe.
[2019-05-10] MEDS: MAG HYDROX/AL HYDROX/SIMETH 30 ML, LIDOCAINE VISCOUS 30 ML, diphenhydrAMINE ELIXIR 75 M... PO SCH ×12 (08:32→21:05)
[2019-05-10] MEDS: VANCOMYCIN 1,250 MG in SODIUM CHLORIDE 0.9% 250 ML IVPB SCH (08:33)
[2019-05-10] MEDS: ENOXAPARIN 40 MG/0.4 ML SYRINGE SQ SCH (08:34)
[2019-05-10] MEDS: PIPERACILLIN-TAZOBACTAM 3.375 GM in SODIUM CHLORIDE 0.9% 100 ML IVPB SCH ×3 (08:34→23:25)
[2019-05-10 11:09] LABS: African American GFR (CKD) >90 (>60 ml/min/1.73 sqM); Anion Gap 8 mmol/L; Blood Urea Nitrogen 5 mg/dL (9-20); Calcium 7.6 mg/dL (8.4-10.2); Carbon Dioxide 22 mmol/L (22-30); Chloride 97 mmol/L (98-107); Glucose 85 mg/dL (74-99); Magnesium 1.7 mg/dL (1.6-2.3); Potassium 3.7 mmol/L (3.5-5.1); Sodium 127 mmol/L (137-145)
--- NOTE | 2019-05-10 11:32 | P.PN ---
Subjective Progress Note Date: 05/10/19 Patient is a 53-year-old male with a PMH of recently diagnosed poorly differentiated stage IV non-small cell lung cancer with metastasis to the adrenal gland, currently following with Dr. Lopez and receiving chemotherapy (currently on Carboplatin and Taxol) w/ last dose on 05/05, cachexia secondary to advanced malignancy, had presented to the emergency room with complaints of shortness of breath, lethargy, and coughing. The patient was noted to be tachycardic in the emergency room with a WBC count of 11, hyponatremic with a sodium of 129, with involvement of 2.9. Patient had undergone a CT chest which showed a worsening right upper lobe infiltrate along with the previously seen mass. Patient was subsequently started on IV antibiotics and was admitted for further management of healthcare associated pneumonia. Nephrology was consulted for hyponatremia and the patient was placed on fluid restriction. Dr Lopez from Oncology was consulted and discussed with the patient and his family. I person ally discussed the case with Dr Lopez who stated that the patient's family wishes to continue with treatment at this time and are not willing to consider hospice/comfort care at this time. Infectious disease was also consulted. Patient was seen and evaluated at the bedside on 05/10. The patient noted feeling somewhat better today. He denied chest pain, SOB, fever, chills, cough, nausea, or vomiting. He continues to have poor appetite. Objective - Vital Signs Vital signs: Vital Signs Temp 98.2 F 05/10/19 07:00 Pulse 102 H 05/10/19 07:00 Resp 16 05/10/19 07:00 BP 105/65 05/10/19 07:00 Pulse Ox 98 05/10/19 07:00 Intake & Output 05/09/19 05/10/19 05/10/19 18:59 06:59 18:59 Intake Total 1036 400 Balance 1036 400 Weight 49.895 kg 49.5 kg Intake: IV 800 Sodium Chloride 0.9% 1, 800 000 ml @ 100 mls/hr IV . Q10H [facility] Rx#:[id number] Intake, IV Titration 400 Amount Piperacillin-Tazobactam 3 100 .375 gm In Sodium Chloride 0.9% 100 ml @ 25 mls/hr IVPB Q8H [facility] Rx#: [id number] Sodium Chloride 0.9% 1, 300 000 ml @ 100 mls/hr IV . Q10H [facility] Rx#:[id number] Oral 236 Other: Voiding Method Toilet Toilet # Voids 2 1 - Exam General: Ill appearing cachectic M, in no acute distress HEENT: NC/AT, anicteric sclerae, no lid-lag, PERRLA Cardiovascular: S1/S2 wnl, no murmurs, rubs, or gallops Lungs: Scattered ronchi, no rales or wheezing appreciated, normal respiratory effort, no accessory muscle use Abdominal: Soft, non-tender, non-distended, no guarding, rebound, or rigidity Skin: Warm, dry Extremities: No edema or contractures Psychiatric: Alert and oriented to person, place and time, appropriate affect Neuro: CN II-XII grossly intact, no focal deficits - Labs CBC & Chem 7: 05/08/19 07:45 05/10/19 06:16 Labs: Abnormal Lab Results - Last 24 Hours (Table) 05/10/19 Range/Units 06:16 Sodium 127 L (137-145) mmol/L Chloride 97 L (98-107) mmol/L BUN 5 L (9-20) mg/dL Creatinine 0.39 L (0.66-1.25) mg/dL Calcium 7.6 L (8.4-10.2) mg/dL Microbiology - Last 24 Hours (Table) 05/06/19 22:45 Blood Culture - Preliminary Blood No Growth after 72 hours 05/09/19 11:15 Gram Stain - Preliminary Sputum Assessment and Plan Plan: Healthcare associated pneumonia in the setting of stage IV non-small cell lung cancer, undergoing chemotherapy -Continue with Levaquin, vancomycin, Zosyn for now -Awaiting cultures -Pulmonary recommendations appreciated -Awaiting ID recs -Continue with IV fluids Hyponatremia, chronic -Likely secondary to malignancy -Monitor BMP and continue with IV fluids -Nephrology recs appreciated -C/w IVFs NS for now Normocytic anemia -Likely secondary to advanced malignancy -Monitor for now Severe protein calorie malnutrition with significant weight loss in setting of malignancy -Dietitian recs appreciated -Continue with supplements Pain likely secondary to malignancy -Continue with opiates Lactic acidosis, resolved DVT prophylaxis -Lovenox Discussed with: Patient Anticipated discharge date: 1-[address]: Home w/ palliative care A total of 35 minutes was spent on the care of this complex patient more than 50% of the time was spent in counseling and care coordination.
[2019-05-10] MEDS ORDERED: FUROSEMIDE 20 MG TAB PO STA (12:09)
--- NOTE | 2019-05-10 12:09 | P.PN ---
Subjective Patient is seen in follow-up for hyponatremia. Sodium level is stable at 127 today. Currently maintained on normal saline at 100 mL an hour. Oral intake is gradually improving. Did have an episode of vomiting yesterday. Vital signs are stable. General: The patient appeared well nourished and normally developed. HEENT: Head exam is unremarkable. Neck is without jugular venous distension. LUNGS: Lungs are clear to auscultation and percussion. Breath sounds decreased. HEART: Rate and Rhythm are regular. First and second heart sounds normal. No murmurs, rubs or gallops. ABDOMEN: Abdominal exam reveals normal bowel sounds. Non-tender and non- distended. No evidence of peritonitis. EXTREMITITES: No clubbing, cyanosis, or edema. Objective - Vital Signs Vital signs: Vital Signs Temp 98.2 F 05/10/19 07:00 Pulse 102 H 05/10/19 07:00 Resp 16 05/10/19 07:00 BP 105/65 05/10/19 07:00 Pulse Ox 98 05/10/19 07:00 Intake & Output 05/09/19 05/10/19 05/10/19 18:59 06:59 18:59 Intake Total 1036 400 Balance 1036 400 Weight 49.895 kg 49.5 kg Intake: IV 800 Sodium Chloride 0.9% 1, 800 000 ml @ 100 mls/hr IV . Q10H [facility] Rx#:[id number] Intake, IV Titration 400 Amount Piperacillin-Tazobactam 3 100 .375 gm In Sodium Chloride 0.9% 100 ml @ 25 mls/hr IVPB Q8H [facility] Rx#: [id number] Sodium Chloride 0.9% 1, 300 000 ml @ 100 mls/hr IV . Q10H [facility] Rx#:[id number] Oral 236 Other: Voiding Method Toilet Toilet # Voids 2 1 - Labs CBC & Chem 7: 05/08/19 07:45 05/10/19 06:16 Labs: Abnormal Lab Results - Last 24 Hours (Table) 05/10/19 Range/Units 06:16 Sodium 127 L (137-145) mmol/L Chloride 97 L (98-107) mmol/L BUN 5 L (9-20) mg/dL Creatinine 0.39 L (0.66-1.25) mg/dL Calcium 7.6 L (8.4-10.2) mg/dL Microbiology - Last 24 Hours (Table) 05/06/19 22:45 Blood Culture - Preliminary Blood No Growth after 72 hours 05/09/19 11:15 Gram Stain - Preliminary Sputum Assessment and Plan Plan: Assessment: 1. Hypovolemic hyponatremia initially improved with IV hydration. Also concern for underlying SIADH due to malignancy. Sodium level stable at 127 today. Urine osmolality noted to be high at 553. TSH and cortisol normal. 2. Stage IV lung cancer. Oncology following. 3. Mild hypokalemia from poor oral intake. Magnesium normal. Better. Plan: Hep-Lock IV fluids. 1200 mL fluid restriction. Encourage oral intake, particularly protein. Add sodium chloride tablets 1 g twice daily. Lasix 20 mg orally once today.
[2019-05-10] MEDS: SODIUM CHLORIDE TAB 1 GM TAB PO SCH ×2 (12:40→20:22)
--- NOTE | 2019-05-10 14:06 | P.PN ---
Subjective Progress Note Date: 05/10/19 Principal diagnosis: Right upper lobe pneumonia and stage IV non-small cell lung cancer. 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 His diagnoses was done by Dr. Jackson, patient underwent a bronchoscopy transbronchial biopsies of the right upper lobe, and the biopsies were positive for poorly differentiated carcinoma, non-small cell, consistent with lung origin. It was on not clear whether the patient had anginal or squamous cell carcinoma. However the pathologist favored adenocarcinoma. It was recommended to the patient to have chemo/immunotherapy which is acceptable for squamous cell and non-squamous cell including carboplatin/Taxol/tecentriq. Patient was also advised to have possibly palliative radiation treatment to the adrenal masses but that was placed on hold. On 04/14, patient had his first cycle which went well, but the next day he lost his appetite and stopped eating. He also developed dry heaves. And became extremely weak. I believe since then the patient had another course of treatment, this time he was admitted with mostly few days history of increased shortness of breath, productive cough with greenish phlegm, intermittent episodes of low-grade fever and chills. Chest x-ray and CT of the chest showed diffuse right upper lobe consolidation with 5 cm zone of cavitation and it also showed the left suprahilar spiculated mass contiguous with the left hilar a denopathy. No evidence of pulmonary embolism. Again the CT of the chest is suggestive of progression of lung cancer as well as pneumonia involving the right upper lobe. Not to mention the patient was noted to have significant emphysematous changes in both lungs. Considering his presentation and his abnormal CT of the chest, this consult was initiated. Patient is now on Levaquin and vancomycin, and Zosyn seems to be tolerating the treatment fairly well so far. Sputum cultures are pending. The patient is seen today 05/10/2019 in follow-up on the regular medical floor. He is currently resting comfortably in bed. Awake and alert in no acute distress. He is maintaining O2 saturations in the upper 90s on room air. He's been afebrile. Blood culture reveals no growth. Sputum culture is pending. Sodium 127. Potassium 3.7. Bicarb 97. Creatinine 0.39. He is currently on vancomycin, Zosyn and Levaquin. Chest x-ray shows evidence of the persisting cavitary mass with some atypical fungal/mycobacterial infection involving the right upper lobe. Objective - Vital Signs Vital signs: Vital Signs Temp 98.2 F 05/10/19 07:00 Pulse 102 H 05/10/19 07:00 Resp 16 05/10/19 07:00 BP 105/65 05/10/19 07:00 Pulse Ox 98 05/10/19 07:00 Intake & Output 05/09/19 05/10/19 05/10/19 18:59 06:59 18:59 Intake Total 1036 400 Balance 1036 400 Weight 49.895 kg 49.5 kg Intake: IV 800 Sodium Chloride 0.9% 1, 800 000 ml @ 100 mls/hr IV . Q10H [facility] Rx#:[id number] Intake, IV Titration 400 Amount Piperacillin-Tazobactam 3 100 .375 gm In Sodium Chloride 0.9% 100 ml @ 25 mls/hr IVPB Q8H [facility] Rx#: [id number] Sodium Chloride 0.9% 1, 300 000 ml @ 100 mls/hr IV . Q10H [facility] Rx#:[id number] Oral 236 Other: Voiding Method Toilet Toilet # Voids 2 1 - Exam GENERAL EXAM: Alert, pleasant frail cachectic 53-year-old gentleman, fairly comfortable in no apparent distress. HEAD: Normocephalic. EYES: Normal reaction of pupils, equal size. NOSE: Clear with pink turbinates. THROAT: No erythema or exudates. NECK: No masses, no JVD. CHEST: No chest wall deformity. LUNGS: Equal air entry with few scattered rhonchi in the right lung. CVS: S1 and S2 normal with no audible murmur, regular rhythm. ABDOMEN: No hepatosplenomegaly, normal bowel sounds, no guarding or rigidity. SPINE: No scoliosis or deformity SKIN: No rashes CENTRAL NERVOUS SYSTEM: No focal deficits, tone is normal in all 4 extremities. EXTREMITIES: There is no peripheral edema. No clubbing, no cyanosis. Peripheral pulses are intact. - Labs CBC & Chem 7: 05/08/19 07:45 05/10/19 06:16 Labs: Abnormal Lab Results - Last 24 Hours (Table) 05/10/19 Range/Units 06:16 Sodium 127 L (137-145) mmol/L Chloride 97 L (98-107) mmol/L BUN 5 L (9-20) mg/dL Creatinine 0.39 L (0.66-1.25) mg/dL Calcium 7.6 L (8.4-10.2) mg/dL Microbiology - Last 24 Hours (Table) 05/06/19 22:45 Blood Culture - Preliminary Blood No Growth after 72 hours 05/09/19 11:15 Gram Stain - Preliminary Sputum Assessment and Plan Assessment: Impression: 1 extensive right upper lobe pneumonia likely healthcare associated pneumonia, most likely gram-negative in nature unless proven otherwise. 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 6 suspect severe underlying COPD, emphysema based on CT of the chest findings. Recommendation: The patient was seen and evaluated by Dr. Hinkle. Chest x-ray and labs reviewed. We will go ahead and discontinue the vancomycin for now. Continue Zosyn and Levaquin. We will continue to follow and make further recommendations based on his clinical status. I, the cosigning physician, performed a history & physical examination of the patient. Lungs sounds few scattered rhonchi in the right lung. Maintaining good O2 saturations in the 90s on room air. I discussed the assessment and plan of care with my nurse practitioner, Jenn Orta. I attest to the above note as dictated by her.
[2019-05-10] MEDS: diphenhydrAMINE 25 MG CAP PO PRN (20:22)
[2019-05-10] MEDS: LEVOFLOXACIN 750MG-D5W PMX 750 MG in DEXTROSE/WATER 1 150ML.BAG IVPB SCH (21:32)
--- NOTE | 2019-05-10 22:51 | P.CONS ---
History of Present Illness - Reason for Consult Consult date: 05/10/19 - Chief Complaint weakness - History of Present Illness 53-year-old male presents to Hospital feeling poorly with increasing shortness of breath and cough and some sputum production without significant hemoptysis. The patient has the known history from December 2018 was having abdominal pain. Imaging studies reveal evidence of significant adrenal masses. Further evaluations were performed showing evidence of multiple pulmonary masses, he underwent bronchoscopy and transbronchial biopsies revealed evidence of the poorly differentiated carcinoma non-small cell. The patient has been started on a chemotherapy with carboplatin/Taxol/Tencentriq and relates has been feeling worse and worse. Has had progressive weight loss, food does not taste well and appetite is poor. With evidence of pneumonia the patient was admitted to hospital has been begun antibiotic therapy, consultation requested regarding guidance of antibiotics especially as he is getting ready for discharge to home Review of Systems Patient feels very poorly, weak progressive weight loss, his sister is present and evidence of friction. HEENT:Denies headache or acute visual change. Denies sinus or mouth discomforts. Denies neck stiffness or pain. Denies significant oral cavity pa in. Denies difficulty on swallowing. Lungs: Chronic shortness of breath, chronic cough some sputum production or hemoptysis Cardiovascular: Chronic shortness of breath has some chest pain lower in the back of the chest, poor exercise tolerance and dyspnea with exertion. Gastrointestinal: Since chemotherapy has had poor appetite with some nausea does not have significant emesis. He is not having significant diarrhea constipation hematemesis motor or hematochezia. Musculoskeletal: He has some chronic severe back pain utilizes Duragesic patch for this thought to be due to the adrenal mass Skin: Denies new rash or lesions. No new ulcers or wounds are related.. Neuro: He is had some headache but is not having visual change, no localized weakness, no seizures but has generalized weakness Psychiatric: Situational depression Endocrine: Progressive fatigue severe weight loss, about 70 pounds Past Medical History Past Medical History: Cancer, GERD/Reflux Additional Past Medical History / Comment(s): adrenal mass X 2 History of Any Multi-Drug Resistant Organisms: None Reported Past Surgical History: Hernia Repair Additional Past Surgical History / Comment(s): left thumb re-attached Past Anesthesia/Blood Transfusion Reactions: No Reported Reaction Past Psychological History: No Psychological Hx Reported Additional Psychological History / Comment(s): . 4 children. Several siblings. Has stopped smoking with his diagnosis of cancer. Relates to significant exposure to asbestos or his career he was a builder and reconstruction. No experience. No travel history. No pets in the home currently Smoking Status: Former smoker Past Alcohol Use History: None Reported Additional Past Alcohol Use History / Comment(s): started smoking at age 17,1ppd Past Drug Use History: Marijuana Additional Drug Use History / Comment(s): uses marijuana every 2 days, - Past Family History Father Family Medical History: Coronary Artery Disease (CAD) Medications and Allergies Home Medications and Allergies Comment(s): Current Medications Acetaminophen (Tylenol Tab) 650 mg PO Q6HR PRN PRN Reason: Fever and/ or Pain Hydrocodone Bitart/Acetaminophen ([place] 10) 1 each PO Q6H PRN PRN Reason: Pain Last Admin: 05/08/19 21:42 Dose: 1 each Documented by: Albuterol/Ipratropium (Duoneb 0.5 Mg-3 Mg/3 Ml Soln) 3 ml INHALATION RT-QID PRN PRN Reason: Shortness Of Breath Or Wheezing Alprazolam (Xanax) 0.5 mg PO QID PRN PRN Reason: Anxiety Last Admin: 05/08/19 16:33 Dose: 0.5 mg Documented by: Al Hydroxide/Mg Hydroxide 30 ml/ Lidocaine HCl 30 ml/Diphenhydramine HCl 75 mg/Nystatin 3,000,000 unit 0 ml PO TID [facility] Last Admin: 05/10/19 21:05 Dose: Not Given Documented by: Diphenhydramine HCl (Benadryl) 25 mg PO HS PRN PRN Reason: Insomnia Last Admin: 05/10/19 20:22 Dose: 25 mg Documented by: Enoxaparin Sodium (Lovenox) 40 mg SQ DAILY [facility] Last Admin: 05/10/19 08:34 Dose: 40 mg Documented by: Famotidine (Pepcid) 20 mg PO BID [facility] Last Admin: 05/10/19 20:22 Dose: 20 mg Documented by: Fentanyl (Duragesic 50mcg/Hr Patch) 1 patch TRANSDERM Q72H [facility] Last Admin: 05/09/19 09:05 Dose: 1 patch Documented by: Guaifenesin (Mucinex) 600 mg PO Q12HR [facility] Last Admin: 05/10/19 20:22 Dose: 600 mg Documented by: Levofloxacin 750 mg/ IV (Solution) 150 mls @ 100 mls/hr IVPB Q24H [facility] Stop: 05/19/19 22:31 Last Admin: 05/10/19 21:32 Dose: 100 mls/hr Documented by: Piperacillin Sod/Tazobactam (Sod 3.375 gm/ Sodium Chloride) 100 mls @ 25 mls/hr IVPB Q8H [facility] Last Admin: 05/10/19 16:37 Dose: 25 mls/hr Documented by: Megestrol Acetate (Megace) 400 mg PO DAILY [facility] Last Admin: 05/10/19 08:24 Dose: 400 mg Documented by: Miscellaneous Information (Pneumonia Protocol Utilized) 1 each PO ONCE PRN PRN Reason: Per Protocol Miscellaneous Information (Vancomycin Trough Due) 0 each MISCELLANE DIRECTED ONE Stop: 05/11/19 07:01 Morphine Sulfate (Morphine Sulfate (Inj)) 4 mg IVP Q4HR PRN PRN Reason: MOD-SEV PAIN Ondansetron HCl (Zofran) 4 mg PO Q6H PRN PRN Reason: Nausea Ondansetron HCl (Zofran) 4 mg IVP Q6H PRN PRN Reason: Nausea Last Admin: 05/09/19 11:09 Dose: 4 mg Documented by: Prochlorperazine Maleate (Compazine) 10 mg PO Q6H PRN PRN Reason: Nausea Last Admin: 05/09/19 09:14 Dose: 10 mg Documented by: Sodium Chloride (Sodium Chloride Tab) 1 gm PO BID [facility] Last Admin: 05/10/19 20:22 Dose: 1 gm Documented by: Home Medications Medication Instructions Recorded Confirmed Type Hydrocodone/Acetaminophen [[place] 1 tab PO Q6H PRN 04/19/19 05/06/19 History 10-325] Prochlorperazine [Compazine] 10 mg PO Q6H PRN 04/19/19 05/06/19 History ALPRAZolam [Xanax] 0.25 mg PO TID PRN 7 Days #21 tab 04/24/19 05/06/19 Rx Famotidine [Pepcid] 20 mg PO BID #60 tab 04/24/19 05/06/19 Rx Megestrol [Megace] 400 mg PO DAILY #100 ml 04/24/19 05/06/19 Rx fentaNYL 50MCG/HR PATCH [Duragesic 1 patch TRANSDERM Q72H #5 patch 04/24/19 Rx 50MCG/HR] Ondansetron [Zofran] 4 mg PO Q6H PRN 05/06/19 05/06/19 History Allergies Allergy/AdvReac Type Severity Reaction Status Date / Time No Known Allergies Allergy Verified 05/06/19 23:35 Physical Exam Vitals: Vital Signs Temp Pulse Resp BP Pulse Ox 05/10/19 20:01 98.0 F 114 H 17 99/68 98 05/10/19 19:37 98.3 F 108 H 18 116/65 97 05/10/19 16:00 98.3 F 108 H 18 113/73 98 05/10/19 14:28 97.9 F 111 H 16 102/69 98 05/10/19 07:00 98.2 F 102 H 16 105/65 98 05/10/19 01:21 98.1 F 112 H 16 100/67 99 Intake and Output 05/10/19 05/10/19 05/10/19 06:59 14:59 22:59 Intake Total 25 Balance 25 Intake: Intake, IV Titration 25 Amount Sodium Chloride 0.9% 1, 25 000 ml @ 100 mls/hr IV . Q10H [facility] Rx#:[id number] Other: Voiding Method Toilet # Voids 1 3 1 Weight 49.5 kg Cachectic 53-year-old male who looks considerably older than his stated age HEENT: Anicteric conjunctiva are pink and moist nasal mucosa grossly intact without significant lesions, there is no thrush. Neck: The neck is supple without significant lymphadenopathy or thyromegaly. Lungs: Symmetrical air entry is noted, expiratory wheezes are noted there are crackles that clear with a deep cough but continues to have bronchial sounds and egophony into the right posterior upper zone Heart: Regular rate and rhythm with an audible S1-S2, no S3 no S4. There is no significant murmur click or rub, PMI was nondisplaced. Abdomen: Positive bowel sounds soft and nontender without palpable masses or organomegaly. There was no guarding or rebound. Extremities: The upper extremities have excellent pulses they are symmetric, no significant petechiae or telangiectasia. No splinter hemorrhages were noted. The lower extremities are free from significant edema. The peripheral pulses we re 2+ and symmetric. Evidence of significant muscular wasting Neuro: Awake alert oriented to person place and time. There are no acute new gross focal sensory motor deficits. Affect is somewhat argumentative with his sister Results CBC & Chem 7: 05/08/19 07:45 05/10/19 06:16 Labs: Abnormal Lab Results - Last 24 Hours (Table) 05/10/19 Range/Units 06:16 Sodium 127 L (137-145) mmol/L Chloride 97 L (98-107) mmol/L BUN 5 L (9-20) mg/dL Creatinine 0.39 L (0.66-1.25) mg/dL Calcium 7.6 L (8.4-10.2) mg/dL Microbiology - Last 24 Hours (Table) 05/06/19 22:45 Blood Culture - Preliminary Blood No Growth after 72 hours 05/09/19 11:15 Gram Stain - Preliminary Sputum Laboratory Results WBC 6.2 k/uL (3.8-10.6) 05/08/19 07:45 RBC 2.78 m/uL (4.30-5.90) L 05/08/19 07:45 Hgb 8.2 gm/dL (13.0-17.5) L 05/08/19 07:45 Hct 25.0 % (39.0-53.0) L 05/08/19 07:45 MCV 89.7 fL (80.0-100.0) 05/08/19 07:45 MCH 29.4 pg (25.0-35.0) 05/08/19 07:45 MCHC 32.7 g/dL (31.0-37.0) 05/08/19 07:45 RDW 12.8 % (11.5-15.5) 05/08/19 07:45 Plt Count 258 k/uL (150-450) 05/08/19 07:45 Neutrophils % 93 % 05/06/19 19:30 Lymphocytes % 6 % 05/06/19 19:30 Monocytes % 1 % 05/06/19 19:30 Eosinophils % 0 % 05/06/19 19:30 Basophils % 0 % 05/06/19 19:30 Neutrophils # 10.2 k/uL (1.3-7.7) H 05/06/19 19:30 Lymphocytes # 0.6 k/uL (1.0-4.8) L 05/06/19 19:30 Monocytes # 0.1 k/uL (0-1.0) 05/06/19 19:30 Eosinophils # 0.0 k/uL (0-0.7) 05/06/19 19:30 Basophils # 0.0 k/uL (0-0.2) 05/06/19 19:30 Sodium 127 mmol/L (137-145) L 05/10/19 06:16 Potassium 3.7 mmol/L (3.5-5.1) 05/10/19 06:16 Chloride 97 mmol/L (98-107) L 05/10/19 06:16 Carbon Dioxide 22 mmol/L (22-30) 05/10/19 06:16 Anion Gap 8 mmol/L 05/10/19 06:16 BUN 5 mg/dL (9-20) L 05/10/19 06:16 Creatinine 0.39 mg/dL (0.66-1.25) L 05/10/19 06:16 Est GFR (CKD-EPI)AfAm >90 (>60 ml/min/1.73 sqM) 05/10/19 06:16 Est GFR (CKD-EPI)NonAf >90 (>60 ml/min/1.73 sqM) 05/10/19 06:16 Glucose 85 mg/dL (74-99) 05/10/19 06:16 Lactic Ac Sepsis Rflx Y 05/07/19 01:25 Plasma Lactic Acid David 0.6 mmol/L (0.7-2.0) L 05/07/19 05:10 Calcium 7.6 mg/dL (8.4-10.2) L 05/10/19 06:16 Magnesium 1.7 mg/dL (1.6-2.3) 05/10/19 06:16 Total Bilirubin 0.7 mg/dL (0.2-1.3) 05/06/19 19:30 AST 30 U/L (17-59) 05/06/19 19:30 ALT 19 U/L (21-72) L 05/06/19 19:30 Alkaline Phosphatase 188 U/L (38-126) H 05/06/19 19:30 Total Protein 6.3 g/dL (6.3-8.2) 05/06/19 19:30 Albumin 2.9 g/dL (3.5-5.0) L 05/06/19 19:30 TSH 0.883 mIU/L (0.465-4.680) 05/08/19 07:42 Cortisol 21 ug/dL 05/08/19 07:42 Urine Color Yellow 05/06/19 22:40 Urine Appearance Clear (Clear) 05/06/19 22:40 Urine pH 7.0 (5.0-8.0) 05/06/19 22:40 Ur Specific Wayne 1.021 (1.001-1.035) 05/06/19 22:40 Urine Protein Negative (Negative) 05/06/19 22:40 Urine Glucose (UA) Negative (Negative) 05/06/19 22:40 Urine Ketones Negative (Negative) 05/06/19 22:40 Urine Blood Negative (Negative) 05/06/19 22:40 Urine Nitrite Negative (Negative) 05/06/19 22:40 Urine Bilirubin Negative (Negative) 05/06/19 22:40 Urine Urobilinogen 6.0 mg/dL (<2.0) 05/06/19 22:40 Ur Leukocyte Esterase Negative (Negative) 05/06/19 22:40 Urine Osmolality 553 mosm/kg (50-1400) 05/08/19 16:17 Ur Random Sodium 167 mmol/L 05/08/19 16:17 Vancomycin Trough 10.5 ug/mL 05/09/19 16:04 Microbiology 05/06/19 22:45 Blood Blood Culture - Preliminary No Growth after 72 hours 05/09/19 11:15 Sputum Gram Stain - Preliminary Assessment and Plan (1) Dehydration Current Visit: Yes Status: Acute Priority: High Code(s): E86.0 - DEHYDRATION SNOMED Code(s): 70912929 (2) Metastatic primary lung cancer Current Visit: Yes Status: Acute Priority: High Code(s): C34.90 - MALIGNANT NEOPLASM OF UNSP PART OF UNSP BRONCHUS OR LUNG SNOMED Code(s): 91637282 (3) Hyponatremia Current Visit: No Status: Acute Priority: High Code(s): E87.1 - HYPO- OSMOLALITY AND HYPONATREMIA SNOMED Code(s): 37270545 (4) Pneumonia Narrative/Plan: 53-year-old male who has had a history of metastatic adenocarcinoma with lung with bilateral adrenal masses with a chronic pain syndrome. He has had progressive cachexia poor appetite and progressive weakness. He presents to Hospital with increasing weakness shortness of breath and sputum production because he was feeling so poorly imaging studies were performed. No change of his significant intrathoracic masses the potential new right upper lobe pneumonia was seen superimposed upon significant emphysema. Concerns to postobstructive pneumonia the patient was initiated to extensive antibiotic therapy with Levaquin, Zosyn, and vancomycin. Sputum culture has been obtained and is currently pending. The patient is feeling only slightly better at this point in time. Sputum will further help direct the course of antibiotic therapy. He is without significant fever or leukopenia and a mild leukocytosis at admission has resolved. He is being followed by oncology as well as nephrology given his hyponatremia there appears to be multifactorial including potential benefit of SIADH. With fluid restriction is improving. Family is instructed to bring him any food he would like, but would limit things such as soups because of water content. Patient's prognosis is clearly poor, and this time it's unclear if he's had any response to chemotherapy, but certainly has had a declining course with progressive weight loss fatigue and malaise. Pulmonary critical care does not appear to have plans for bronchoscopy. Current Visit: Yes Status: Acute Code(s): J18.9 - PNEUMONIA, UNSPECIFIED ORGANISM SNOMED Code(s): 600261967
[2019-05-11] MEDS ORDERED: VANCOMYCIN TROUGH DUE 1 EACH MISC MISCELLANE ONE (07:00)
[2019-05-11 07:37] VITALS: BP 109/68; PULSE 106; RESP 16; TEMP 98.3
[2019-05-11 08:02] LABS: African American GFR (CKD) >90 (>60 ml/min/1.73 sqM); Anion Gap 9 mmol/L; Blood Urea Nitrogen 5 mg/dL (9-20); Calcium 7.7 mg/dL (8.4-10.2); Carbon Dioxide 24 mmol/L (22-30); Chloride 94 mmol/L (98-107); Glucose 97 mg/dL (74-99); Magnesium 1.6 mg/dL (1.6-2.3); Potassium 3.5 mmol/L (3.5-5.1); Sodium 127 mmol/L (137-145)
[2019-05-11] MEDS: ONDANSETRON 4 MG/2 ML VIAL IVP PRN ×2 (08:16→08:18)
[2019-05-11] MEDS: PIPERACILLIN-TAZOBACTAM 3.375 GM in SODIUM CHLORIDE 0.9% 100 ML IVPB SCH (08:17)
[2019-05-11] MEDS ORDERED: POTASSIUM CHLORIDE ER 20 MEQ TAB.ER PO STA (10:12)
--- NOTE | 2019-05-11 10:13 | P.PN ---
Subjective Patient is seen in follow-up for hyponatremia. Sodium level is stable at 127 today. Remains off IV fluids. Oral intake is gradually improving. No vomiting or diarrhea. Vital signs are stable. General: The patient appeared well nourished and normally developed. HEENT: Head exam is unremarkable. Neck is without jugular venous distension. LUNGS: Lungs are clear to auscultation and percussion. Breath sounds decreased. HEART: Rate and Rhythm are regular. First and second heart sounds normal. No murmurs, rubs or gallops. ABDOMEN: Abdominal exam reveals normal bowel sounds. Non-tender and non- distended. No evidence of peritonitis. EXTREMITITES: No clubbing, cyanosis, or edema. Objective - Vital Signs Vital signs: Vital Signs Temp 98.3 F 05/11/19 07:00 Pulse 106 H 05/11/19 07:00 Resp 16 05/11/19 07:00 BP 109/68 05/11/19 07:00 Pulse Ox 99 05/11/19 07:00 Intake & Output 05/10/19 05/11/19 05/11/19 18:59 06:59 18:59 Intake Total 25 Balance 25 Weight 48.4 kg Intake: Intake, IV Titration 25 Amount Sodium Chloride 0.9% 1, 25 000 ml @ 100 mls/hr IV . Q10H [facility] Rx#:[id number] Other: Voiding Method Toilet # Voids 1 1 - Labs CBC & Chem 7: 05/08/19 07:45 05/11/19 06:29 Labs: Abnormal Lab Results - Last 24 Hours (Table) 05/10/19 05/11/19 Range/Units 06:16 06:29 Sodium 127 L 127 L (137-145) mmol/L Chloride 97 L 94 L (98-107) mmol/L BUN 5 L 5 L (9-20) mg/dL Creatinine 0.39 L 0.36 L (0.66-1.25) mg/dL Calcium 7.6 L 7.7 L (8.4-10.2) mg/dL Microbiology - Last 24 Hours (Table) 05/09/19 11:15 Gram Stain - Final Sputum Sputum Culture - Final Marry albicans 05/06/19 22:45 Blood Culture - Preliminary Blood No Growth after 96 hours Assessment and Plan Plan: Assessment: 1. Hypovolemic hyponatremia initially improved with IV hydration. Also concern for underlying SIADH due to malignancy. Sodium level stable at 127 today. Urine osmolality noted to be high at 553. TSH and cortisol normal. 2. Stage IV lung cancer. Oncology following. 3. Mild hypokalemia from poor oral intake and Lasix. Magnesium normal. Plan: Remains off IV fluids. Encourage oral intake, particularly protein. Maintain sodium chloride tablets 1 g twice daily. Samsca 15 mg once today. Repeat electrolytes in the morning.
[2019-05-11] MEDS ORDERED: TOLVAPTAN 15 MG 1/2 TABLET PO ONE (10:30)
[2019-05-11] MEDS: ENOXAPARIN 40 MG/0.4 ML SYRINGE SQ SCH (10:45)
[2019-05-11] MEDS: SODIUM CHLORIDE TAB 1 GM TAB PO SCH (10:45)
[2019-05-11] MEDS: MEGESTROL 400 MG/10 ML CUP PO SCH (10:46)
[2019-05-11] MEDS: FAMOTIDINE 20 MG TAB PO SCH (10:47)
[2019-05-11] MEDS: MAG HYDROX/AL HYDROX/SIMETH 30 ML, LIDOCAINE VISCOUS 30 ML, diphenhydrAMINE ELIXIR 75 M... PO SCH ×4 (10:47)
[2019-05-11] MEDS: guaiFENesin 600 MG TABLET.ER PO SCH (10:47)
--- NOTE | 2019-05-11 11:49 | P.PN ---
Subjective Progress Note Date: 05/11/19 Principal diagnosis: Right upper lobe pneumonia and stage IV non-small cell lung cancer. 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 His diagnoses was done by Dr. Jackson, patient underwent a bronchoscopy transbronchial biopsies of the right upper lobe, and the biopsies were positive for poorly differentiated carcinoma, non-small cell, consistent with lung origin. It was on not clear whether the patient had anginal or squamous cell carcinoma. However the pathologist favored adenocarcinoma. It was recommended to the patient to have chemo/immunotherapy which is acceptable for squamous cell and non-squamous cell including carboplatin/Taxol/tecentriq. Patient was also advised to have possibly palliative radiation treatment to the adrenal masses but that was placed on hold. On 04/14, patient had his first cycle which went well, but the next day he lost his appetite and stopped eating. He also developed dry heaves. And became extremely weak. I believe since then the patient had another course of treatment, this time he was admitted with mostly few days history of increased shortness of breath, productive cough with greenish phlegm, intermittent episodes of low-grade fever and chills. Chest x-ray and CT of the chest showed diffuse right upper lobe consolidation with 5 cm zone of cavitation and it also showed the left suprahilar spiculated mass contiguous with the left hilar a denopathy. No evidence of pulmonary embolism. Again the CT of the chest is suggestive of progression of lung cancer as well as pneumonia involving the right upper lobe. Not to mention the patient was noted to have significant emphysematous changes in both lungs. Considering his presentation and his abnormal CT of the chest, this consult was initiated. Patient is now on Levaquin and vancomycin, and Zosyn seems to be tolerating the treatment fairly well so far. Sputum cultures are pending. The patient is seen today 05/10/2019 in follow-up on the regular medical floor. He is currently resting comfortably in bed. Awake and alert in no acute distress. He is maintaining O2 saturations in the upper 90s on room air. He's been afebrile. Blood culture reveals no growth. Sputum culture is pending. Sodium 127. Potassium 3.7. Bicarb 97. Creatinine 0.39. He is currently on vancomycin, Zosyn and Levaquin. Chest x-ray shows evidence of the persisting cavitary mass with some atypical fungal/mycobacterial infection involving the right upper lobe. The patient is seen today 05/11/2019 in follow-up on the regular medical floor. He is a bit stronger today as compared to yesterday. No worsening shortness of breath, cough or congestion. He is afebrile. O2 saturations in the high 90s on room air. Sputum culture positive for Marry only. Blood cultures no growth. Sodium 127. Potassium 3.5. Creatinine 0.36. He remains on Zosyn and Levaquin. He is still quite weak and needs assistance to the bathroom and back. Objective - Vital Signs Vital signs: Vital Signs Temp 98.3 F 05/11/19 07:00 Pulse 106 H 05/11/19 07:00 Resp 16 05/11/19 07:00 BP 109/68 05/11/19 07:00 Pulse Ox 99 05/11/19 07:00 Intake & Output 05/10/19 05/11/19 05/11/19 18:59 06:59 18:59 Intake Total 25 Balance 25 Weight 48.4 kg Intake: Intake, IV Titration 25 Amount Sodium Chloride 0.9% 1, 25 000 ml @ 100 mls/hr IV . Q10H [facility] Rx#:[id number] Other: Voiding Method Toilet # Voids 1 1 - Exam GENERAL EXAM: Alert, pleasant frail cachectic 53-year-old gentleman, fairly comfortable in no apparent distress. On room air. HEAD: Normocephalic. EYES: Normal reaction of pupils, equal size. NOSE: Clear with pink turbinates. THROAT: No erythema or exudates. NECK: No masses, no JVD. CHEST: No chest wall deformity. LUNGS: Equal air entry with few scattered rhonchi in the right lung. CVS: S1 and S2 normal with no audible murmur, regular rhythm. ABDOMEN: No hepatosplenomegaly, normal bowel sounds, no guarding or rigidity. SPINE: No scoliosis or deformity SKIN: No rashes CENTRAL NERVOUS SYSTEM: No focal deficits, tone is normal in all 4 extremities. EXTREMITIES: There is no peripheral edema. No clubbing, no cyanosis. Peripheral pulses are intact. - Labs CBC & Chem 7: 05/08/19 07:45 05/11/19 06:29 Labs: Abnormal Lab Results - Last 24 Hours (Table) 05/11/19 Range/Units 06:29 Sodium 127 L (137-145) mmol/L Chloride 94 L (98-107) mmol/L BUN 5 L (9-20) mg/dL Creatinine 0.36 L (0.66-1.25) mg/dL Calcium 7.7 L (8.4-10.2) mg/dL Microbiology - Last 24 Hours (Table) 05/09/19 11:15 Gram Stain - Final Sputum Sputum Culture - Final Marry albicans 05/06/19 22:45 Blood Culture - Preliminary Blood No Growth after 96 hours Assessment and Plan Assessment: Impression: 1 extensive right upper lobe pneumonia likely healthcare associated pneumonia, sputum culture positive for Marry only. He's been on vancomycin, Zosyn and Levaquin. 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 6 suspect severe underlying COPD, emphysema based on CT of the chest findings. Recommendation: The patient was seen and evaluated by Dr. Hinkle. The patient is cleared for discharge from the pulmonary standpoint. Antibiotics per infectious disease. He may need physical therapy/rehabilitation. Upon discharge, he'll follow-up in our office in 1-[address] De Jesus. We'll repeat a chest x-ray then. He and his are both encouraged to call sooner if any recurrence of symptoms or other questions or concerns. I, the cosigning physician, performed a history & physical examination of the patient. Lungs sounds few scattered rhonchi in the right lung. Maintaining good O2 saturations in the 90s on room air. I discussed the assessment and plan of care with my nurse practitioner, Jenn Orta. I attest to the above note as dictated by her.
--- NOTE | 2019-05-11 14:46 | P.DS ---
Providers Date of admission: 05/06/19 22:29 Expected date of discharge: 05/11/19 Attending physician: Rodney Mcallister MD Consults: 05/07/19 13:15 Consult Physician Routine Consulting Provider: Tobias Lopez Consult Reason/Comments: Lung Ca and PNA Do you want consulting provider notified?: Yes 05/07/19 13:21 Consult Physician Routine Consulting Provider: Faith De Jesus Consult Reason/Comments: PNA, Lung cancer Do you want consulting provider notified?: Yes 05/07/19 15:28 Consult Physician Routine Consulting Provider: Ulisses Soares Consult Reason/Comments: worsening hyponatremia Do you want consulting provider notified?: Yes 05/10/19 09:32 Consult Physician Urgent Consulting Provider: Raleigh Espinoza Consult Reason/Comments: HCAP w/ cavitary lesion Do you want consulting provider notified?: Yes Primary care physician: Douglas Sánchez MD Hospital Course: Patient is a 53-year-old male with a PMH of recently diagnosed poorly differentiated stage IV non-small cell lung cancer with metastasis to the adrenal gland, following with Dr. Lopez and receiving chemotherapy (currently on Carboplatin and Taxol) w/ last dose on 05/05, cachexia secondary to advanced malignancy, had presented to the emergency room with complaints of shortness of breath, cough productive of green phlegm, lethargy, and coughing. The patient was noted to be tachycardic in the emergency room with a WBC count of 11, hyponatremic with a sodium of 129, with albumin of 2.9. Patient had undergone a CT chest which showed a worsening right upper lobe infiltrate along with the previously seen mass. Patient was subsequently started on IV antibiotics and was admitted for further management of healthcare associated pneumonia. Nephrology was consulted for hyponatremia and the patient was placed on fluid restriction for suspected SiADH. Dr Lopez from Oncology was consulted and discussed with the patient and his family. I personally discussed the case with Dr Lopez who stated that the patient's family wishes to continue with treatment at this time and are not willing to consider hospice/comfort care at this time. Infectious disease was also consulted and recommended the patient to be discharged on Augmentin to complete the course of Abxs for HCAP. The patient will have home-health set up along with a palliative care referral. The patient was seen and evaluated at the bedside on the day of discharge. The patient noted feeling better and was eager to be discharge. He denied any active complaints. Continues to have poor appetite though denied chest pain, SOB, fever, chills, nausea, or vomiting. Patient Condition at Discharge: Fair Plan - Discharge Summary Discharge Rx Participant: Yes New Discharge Prescriptions: New Amoxicillin/Potassium Clav [Amox-Clav 400-57 mg/5 ml Susp] 10 ml PO BID #140 ml Continue Prochlorperazine [Compazine] 10 mg PO Q6H PRN PRN Reason: Nausea Hydrocodone/Acetaminophen [[place] 10-325] 1 tab PO Q6H PRN PRN Reason: Pain fentaNYL 50MCG/HR PATCH [Duragesic 50MCG/HR] 1 patch TRANSDERM Q72H #5 patch Megestrol [Megace] 400 mg PO DAILY #100 ml Famotidine [Pepcid] 20 mg PO BID #60 tab ALPRAZolam [Xanax] 0.25 mg PO TID PRN 7 Days #21 tab PRN Reason: Anxiety Ondansetron [Zofran] 4 mg PO Q6H PRN PRN Reason: Nausea Discharge Medication List Hydrocodone/Acetaminophen [[place] 10-325] 1 tab PO Q6H PRN 04/19/19 [History] Prochlorperazine [Compazine] 10 mg PO Q6H PRN 04/19/19 [History] ALPRAZolam [Xanax] 0.25 mg PO TID PRN 7 Days #21 tab 04/24/19 [Rx] Famotidine [Pepcid] 20 mg PO BID #60 tab 04/24/19 [Rx] Megestrol [Megace] 400 mg PO DAILY #100 ml 04/24/19 [Rx] fentaNYL 50MCG/HR PATCH [Duragesic 50MCG/HR] 1 patch TRANSDERM Q72H #5 patch 04/24/19 [Rx] Ondansetron [Zofran] 4 mg PO Q6H PRN 05/06/19 [History] Amoxicillin/Potassium Clav [Amox-Clav 400-57 mg/5 ml Susp] 10 ml PO BID #140 ml 05/11/19 [Rx] Follow up Appointment(s)/Referral(s): [facility], [NON-STAFF] - As Needed (home care and palliative care.) Douglas Sánchez MD [Primary Care Provider] - 05/12/19 10:30 am Patient Instructions/Handouts: Lung Cancer (DC) Discharge Disposition: HOME WITH HOME HEALTH SERVICES
--- NOTE | 2019-05-13 10:05 | CDI ---
Documentation Clarification Form Date: 05/13/19 From: Marlene Walsh Phone: If you have a question about this query, please contact Filomena Suresh Voice Over Artist at [phone] between 8am and 5pm. Admit Date: 05/06/19 Discharge Date: 05/11/19 Patient Name: Prosper Lemus Visit Number: [id number] ATTENTION: The Clinical Documentation Specialists (CDI) and [facility] Coding Staff appreciate your assistance in clarifying documentation. Please respond to the clarification below the line at the bottom and electronically sign. The CDI & [facility] Coding staff will review the response and follow-up if needed. Please note: Queries are made part of the Legal Health Record. If you have any questions, please contact the author of this message via ITS. Dear Dr Alfonso Glover The patient presented with the following nosocomial pneumonia. Documentation in the H&P states that the patient was being admitted for treatment of sepsis secondary to underlying pneumonia but sepsis documentation was not carried through the rest of the chart. History/Risk Factors: Pneumonia, lung cancer Clinical Indicators: Elevated WBC, elevated lactic acid WBC: 11.0 Lactic acid: 2.4 Blood cultures: No growth Vitals signs on admission: T. 98.2 on admit then up to 100.7 5 hours later, P. 117, R. 18, BP 121/76 Treatment: Antibiotics: IV Levaquin, IV Zosyn, IV Vancomycin IV Bolus: 2 liters then at 100 mls/hr In your professional opinion, please clarify if these findings signify one of the following conditions: Condition Sepsis ruled out SIRS, without underlying infectious process Sepsis Severe Sepsis on admission, subsequently resolved the following day Septic Shock Other, please specify Unable to determine Identify the (suspected) organism MTDD
== END 2019-05-11 14:45 | disposition home health service (06) | DRG 871 ==
LOC: EC 18:38 → 4SSUR 22:29
PROVIDERS: ADMIT Internal Medicine; ATTEND Internal Medicine
DX: A41.50 Gram-negative sepsis, unspecified (principal); J15.6 Pneumonia due to other Gram-negative bacteria; E43 Unspecified severe protein-calorie malnutrition; A31.9 Mycobacterial infection, unspecified; C34.10 Malignant neoplasm of upper lobe, unspecified bronchus or lung; C79.70 Secondary malignant neoplasm of unspecified adrenal gland; E87.2 Acidosis; E87.1 Hypo-osmolality and hyponatremia; R64 Cachexia; R65.20 Severe sepsis without septic shock; D64.81 Anemia due to antineoplastic chemotherapy; J43.9 Emphysema, unspecified; D63.0 Anemia in neoplastic disease; T45.1X5A Adverse effect of antineoplastic and immunosuppressive drugs, initial encounter; E86.0 Dehydration; E86.1 Hypovolemia; E87.6 Hypokalemia; G89.3 Neoplasm related pain (acute) (chronic); G89.4 Chronic pain syndrome; K21.9 Gastro-esophageal reflux disease without esophagitis; R59.0 Localized enlarged lymph nodes; Z77.090 Contact with and (suspected) exposure to asbestos; Z87.891 Personal history of nicotine dependence; Z71.6 Tobacco abuse counseling; Z80.0 Family history of malignant neoplasm of digestive organs; Z80.3 Family history of malignant neoplasm of breast; Z82.49 Family history of ischemic heart disease and other diseases of the circulatory system; Y95 Nosocomial condition
CPT/HCPCS: 36415; 71045; 71046; 71275; 74177; 80048; 80051; 80053; 80202; 81003; 82533; 82565; 83605; 83735; 83935; 84295; 84300; 84443; 85025; 85027; 87040; 87070; 87205; 93005; 96361; 96365; 96375; 99285

== ENCOUNTER → 2019-06-27 | Outpatient (CLI) | payer MEDICAID ==
[2019-06-27 12:58] LABS: African American GFR (CKD) >90 (>60 ml/min/1.73 sqM); Blood Urea Nitrogen 12 mg/dL (9-20); Non-African American GFR(CKD) >90 (>60 ml/min/1.73 sqM)
--- NOTE | 2019-06-27 15:02 | CT ---
EXAMINATION TYPE: CT ChestAbdPelvis w con DATE OF EXAM: 06/27/2019 COMPARISON: 05/06/2019 HISTORY: Follow up for lung cancer. CT DLP: 965 mGycm CONTRAST: CT scan of the chest, abdomen and pelvis is performed with Oral Contrast and with IV Contrast, patien t injected with 100ml mL of Isovue 300. CT Chest: LUNGS: Left suprahilar mass has enlarged in size and measures 2.5 x 2.8 cm versus 1.6 x 1.5 cm. Nodul ar density right upper lobe anteriorly measuring 7.5 mm image 41. 8 mm pulmonary nodule right upper l obe anteriorly image 31. Additional micronodular 30 identified throughout the right upper lobe. Area of consolidation seen previously right upper lobe bronchiectasis persists although there is improved aeration. Severe upper lobe emphysematous changes. MEDIASTINUM: Thoracic aorta is of normal caliber. The heart is not enlarged. No evidence for media stinal mass or adenopathy. HILAR STRUCTURES: No evidence for mass left hilar adenopathy measuring up to 2.4 cm. Right hilar nara opathy measuring up to 2 cm. OTHER: No significant abnormality. CONTRAST CT ABDOMEN AND PELVIS FINDINGS: LIVER/GB: Gallstone with contracted gallbladder. No space occupying hepatic lesion. Biliary tree is o f normal caliber. PANCREAS: No inflammation. No distinct mass. SPLEEN: No splenic enlargement. No lesion seen. ADRENALS: Bilateral adrenal masses are stable. KIDNEYS/BLADDER: No hydronephrosis. No nephrolithiasis. No disctinct renal mass. BOWEL: Normal appendix. Normal bowel caliber. No inflammation. GENITAL ORGANS: No gross abnormality. LYMPH NODES: No greater than 1cm abdominal or pelvic lymph nodes are appreciated. AORTA: No significant abnormality. OSSEOUS STRUCTURES: No significant abnormality is seen. OTHER: No significant additional abnormality is seen. IMPRESSION: 1. Enlarging left suprahilar mass. 2. Scattered nodules right upper lobe as discussed difficult to compare to previous given degree of a irspace consolidation noted previously. 3. Right upper lobe airspace consolidation persists although is improved associated cystic and bronch iectatic change. 4. Bilateral adrenal masses compatible with metastatic disease.
== END | disposition home or self-care (01) ==
LOC: RADCTMAIN 12:22
PROVIDERS: ATTEND Internal Medicine Hematology & Oncology
DX: J47.9 Bronchiectasis, uncomplicated (principal); R91.8 Other nonspecific abnormal finding of lung field; E27.8 Other specified disorders of adrenal gland; C34.11 Malignant neoplasm of upper lobe, right bronchus or lung
CPT/HCPCS: 82565; 84520; 71260; 74177; 36415; Q9967

== ENCOUNTER → 2019-11-11 | Outpatient (CLI) | payer MEDICAID ==
[2019-11-11 11:08] LABS: African American GFR (CKD) >90 (>60 ml/min/1.73 sqM); Blood Urea Nitrogen 13 mg/dL (9-20); Non-African American GFR(CKD) >90 (>60 ml/min/1.73 sqM)
--- NOTE | 2019-11-13 16:50 | CT ---
EXAMINATION TYPE: CT ChestAbdPelvis w con DATE OF EXAM: 11/11/2019 COMPARISON: 06/27/2019 and 01/14/2019 HISTORY: Lung cancer, suspect mets CT DLP: 1392 mGycm. Automated Exposure Control for Dose Reduction was Utilized. CONTRAST: CT scan of the thorax, abdomen and pelvis is performed with IV Contrast, patient injected with 100 ml mL of Isovue 300. FINDINGS: LUNGS: The left suprahilar mass continues to enlarge in size previously measuring 2.5 x 2.8 cm and no w measuring 3.5 x 3.3 cm. Some central necrosis is seen. The adjacent adenopathy is similar in short axis currently measuring 1.9 cm in short axis and previously measuring 1.8 cm in short axis. The rig ht hilar adenopathy also appears stable in short axis measuring 1.3 cm. This appears slightly less bu lky in longitudinal dimension than on the prior exam. Background extensive bullous emphysematous changes of the lung apices are seen with multifocal scarri ng. There are numerous pulmonary blebs. A nodule in the right upper lobe along a bleb measures 9 mm i n long axis on series 4 image 18 and is difficult to compare to the prior given a more consolidative appearance of the right upper lobe on the prior. A 2 mm subpleural right upper lobe pulmonary nodule is seen on image 20, which is unchanged from the prior. Right upper lobe anterior linear areas of nod ularity, likely scars, are also unchanged from the prior marked on images 24 and 27. Cylindrical bron chiectasis is seen of the right upper lobe. No pleural effusion or pneumothorax. MEDIASTINUM: Abnormal right paratracheal lymph nodes and lymph node directly adjacent to the left hil ar mass are described above. No additional abnormal lymph nodes seen. No pericardial effusion is seen . LIVER/GB: Hepatic parenchyma is diffusely hypoattenuated in comparison to that of the spleen, most co mmonly seen in hepatic steatosis. This finding limits evaluation for hepatic masses. No gross evidenc e of hepatic mass is seen. No intrahepatic biliary ductal dilatation. Solitary gallstone is identifie d. PANCREAS: Hypoattenuated lesion of the pancreatic tail measures 4 mm and appears as fat, possible fat ty infiltration versus volume averaging on coronal imaging. This is not seen on the exam of 01/14/2019 with the most recent exam. SPLEEN: No significant abnormality is seen. ADRENALS: The right adrenal gland appears of unremarkable morphology, previously markedly abnormal on 01/14/2019 and the left adrenal gland appears uniformly thickened with the lateral limb measuring up t o 7 mm, again markedly different from the exam of 01/14/2019. Therefore these lesions are likely metast atic and have responded to treatment. There is also marked improvement in the appearance of the left adrenal gland from the exam of 06/27/2019. The lateral limb measured up to 17 mm at that time KIDNEYS: Kidneys enhance and excrete symmetrically without hydronephrosis. BOWEL: No dilated large or small bowel. LYMPH NODES: No greater than 1cm abdominal or pelvic lymph nodes are appreciated. OSSEOUS STRUCTURES: Few scattered sclerotic foci in the pelvis likely on the basis of benign bone isl and. These measure 2 to 3 mm and are unchanged from the prior. Mild arthropathy hips and mild to mode rate degenerative changes of the visualized spine with multilevel Schmorl's nodes. OTHER: Mild atheromatous change of the abdominal aorta and its branches. IMPRESSION: 1. Marked improvement in the appearance of the bilateral adrenal gland masses in comparison to the ex am of 06/27/2019 and more remote exams. 2. There is increase in size of the primary left superhilar mass although there is central necrosis, which can be seen in response to treatment. Continued surveillance is recommended. 3. Overall stability in size of the mediastinal adenopathy in comparison to the most recent prior. 4. Redemonstration of multiple scattered subcentimeter right upper lobe pulmonary nodules. No signifi cant interval growth. 5. No new evidence of visceral or osseous metastasis in the chest, abdomen, or pelvis.
== END | disposition home or self-care (01) ==
LOC: RADCTMAIN 09:49
PROVIDERS: ATTEND Internal Medicine Hematology & Oncology
DX: R91.8 Other nonspecific abnormal finding of lung field (principal); R59.0 Localized enlarged lymph nodes; J85.0 Gangrene and necrosis of lung; C34.11 Malignant neoplasm of upper lobe, right bronchus or lung
CPT/HCPCS: 82565; 84520; 71260; 74177; 36415; Q9967

== ENCOUNTER → 2020-02-24 | Outpatient (CLI) | payer MEDICAID ==
[2020-02-24 11:08] LABS: African American GFR (CKD) >90 (>60 ml/min/1.73 sqM); Blood Urea Nitrogen 15 mg/dL (9-20); Non-African American GFR(CKD) >90 (>60 ml/min/1.73 sqM)
--- NOTE | 2020-02-26 19:11 | CT ---
EXAMINATION TYPE: CT ChestAbdPelvis w con DATE OF EXAM: 02/24/2020 COMPARISON: Most recent CT chest abdomen pelvis 12/01/2019 HISTORY: History of lung cancer. CT DLP: 608.4 mGycm Automated exposure control for dose reduction was used. CONTRAST: CT scan of the chest, abdomen and pelvis is performed with Oral Contrast and with IV Contrast, patien t injected with 100 mL of Isovue M300. FINDINGS: LUNGS: The left suprahilar lung mass demonstrates mild interval increase in size, measuring up to 3.2 x 4.1 cm (4:23), previously measuring up to 3.3 x 3.5 cm on 11/11/2019 comparison. Redemonstrated hypo dense areas of central necrosis. Unchanged right upper lobe 9 mm nodule (4:21), 2 mm subpleural right upper lobe nodule (4:23), and somewhat tree-in-bud versus scarring and nodularity of the right upper lobe anteriorly (4:26). Extensive bullous emphysematous changes with biapical scarring, blebs and bu lla, and bronchiectasis redemonstrated. There is no pleural effusion or pneumothorax seen. The trach eobronchial tree is patent. MEDIASTINUM: The left mediastinal enlarged lymph node adjacent to the left suprahilar mass demonstrat es interval increase in size measuring up to 2.1 cm (3:27), previously 1.9 cm on 11/11/2019 comparison. Additional nonenlarged mediastinal lymph nodes are unchanged. The right hilar lymphadenopathy measur ing up to 1.3 cm (3:28) and is unchanged versus 11/11/2019. Cardiac size normal. No pericardial effusio n is seen. OTHER: No axillary lymphadenopathy. LIVER/GB: Fatty liver. No focal liver lesion. No intrahepatic or extra hepatic biliary ductal dilatat ion. PANCREAS: Normal. Previously described hypodense lesion of the pancreatic tail is likely invaginated fat and not as discretely seen on current exam. SPLEEN: Normal. ADRENALS: There is mild decreased thickening diffusely of the left adrenal gland versus 11/11/2019 comp arison, with the lateral limb measuring up to 6 mm on coronal imaging (8:47), previously measuring up to 1.0 cm on 11/11/2019 comparison (5:56). There is new right 1.0 x 3.1 x 2.5 cm right heterogenous ad renal mass (8:56, 3:64). KIDNEYS: Normal. BOWEL: No evidence of bowel obstruction and colonic diverticulosis. No acute diverticulitis. Normal appendix. PERITONEUM: Normal. PELVIS: Normal. LYMPH NODES: No abdominal pelvic lymphadenopathy. VASCULATURE: No abdominal aortic aneurysm. OSSEOUS STRUCTURES: No aggressive osseous destructive lesions. There are unchanged lytic lesions of t he right iliac bone versus 01/14/2019 comparison, with no evidence of cortical breakthrough, and likely benign. Degenerative changes of the spine. IMPRESSION: 1. Increased size of left suprahilar lung mass measuring up to 3.2 x 4.1 cm, previously 3.3 x 3.5 cm on 11/11/2019 comparison. 2. Increased size of adjacent left mediastinal enlarged lymph node measuring up to 2.1 cm, previously 1.9 cm on 11/11/2019 comparison. 3. New right adrenal metastasis measuring up to 1.0 x 3.1 x 2.5 cm. 4. Mildly decreased size of left adrenal metastasis. 5. Additional findings as above unchanged.
== END | disposition home or self-care (01) ==
LOC: RADCTMAIN 10:36
PROVIDERS: ATTEND Internal Medicine Hematology & Oncology
DX: Z03.89 Encounter for observation for other suspected diseases and conditions ruled out (principal); C34.11 Malignant neoplasm of upper lobe, right bronchus or lung; C79.72 Secondary malignant neoplasm of left adrenal gland; C79.71 Secondary malignant neoplasm of right adrenal gland; J43.9 Emphysema, unspecified; J47.9 Bronchiectasis, uncomplicated; K76.0 Fatty (change of) liver, not elsewhere classified; R59.1 Generalized enlarged lymph nodes
CPT/HCPCS: 82565; 84520; 71260; 74177; 36415; Q9967 ×2

== ENCOUNTER → 2020-07-17 | Outpatient (CLI) | payer MEDICAID ==
[2020-07-17 11:40] LABS: African American GFR (CKD) >90 (>60 ml/min/1.73 sqM); Blood Urea Nitrogen 15 mg/dL (9-20); Non-African American GFR(CKD) >90 (>60 ml/min/1.73 sqM)
--- NOTE | 2020-07-17 14:52 | CT ---
EXAMINATION TYPE: CT ChestAbdPelvis w con DATE OF EXAM: 07/17/2020 COMPARISON: 04/13/2020, 02/24/2020, 11/11/2019 HISTORY: 54-year-old male C34.11, Follow up to lung CA TECHNIQUE: Contiguous axial scanning of the chest, abdomen, and pelvis performed with IV Contrast, pa tient injected with 100 mL of Isovue 300. Delayed images through the kidneys were obtained. Coronal/s agittal reconstructions performed. CT DLP: 574.6 mGycm Automated exposure control for dose reduction was used. FINDINGS: CHEST: Heart normal size without pericardial effusion. Aorta normal caliber with a conventional arch was a branching anatomy. Lower right paratracheal lymph node 1.2 cm versus 9 mm, previously. Lower left paratracheal lymph node stable at 9 mm thick. Spiculated left suprahilar mass measures 4.8 x 3.5 cm 4.7 x 2.9 cm, previously. Moderate to advanced bullous emphysema. Areas of pleural parenchymal thickening within the right uppe r lobe and areas of distortion and soft tissue thickening are unchanged. A 4 mm pulmonary nodule in each midlung is unchanged. No consolidation or pleural effusion. ABDOMEN: No focal liver lesion or biliary ductal dilatation. Portal venous system is patent. Gallbladder, left adrenal gland, kidneys, spleen, and pancreas show no gross anomaly. Redemonstrated nodular thickening of the right adrenal gland. This may be slightly increased along th e superior aspect of the gland, refer to axial image 60. No dilated small bowel, free fluid, or free air. No mesenteric or retroperitoneal lymphadenopathy. Normal appendix. Oral contrast progressed into the distal third transverse colon. Mild stool burden. No pericolonic inflammatory change. PELVIS: Bladder urine distended. Prostate gland measures 4.5 cm wide. No abnormal fluid collection in the pel vis or pelvic lymphadenopathy. BONES: Advanced degenerative disc disease L4-L5. Prominent superior endplate most node redemonstrated of L4. No osseous destructive process seen. IMPRESSION: 1. SPICULATED LEFT SUPRAHILAR MASS STABLE TO MINIMALLY LARGER AT 4.8 X 3.5 CM (VERSUS 4.7 X 2.9 CM, P REVIOUSLY). 2. A LOWER RIGHT PARATRACHEAL LYMPH NODE IS NOW MILDLY ENLARGED AT 1.2 CM (VERSUS 9 MM, PREVIOUSLY). 3. CONTINUED NODULAR THICKENING OF THE RIGHT ADRENAL GLAND/METASTATIC INVOLVEMENT. THIS NODULARITY AP PEARS SLIGHTLY INCREASED ALONG THE SUPERIOR ASPECT OF THE GLAND. 4. COPD WITH MODERATE TO ADVANCED BULLOUS EMPHYSEMA AND CHRONIC AREAS OF PLEURAL PARENCHYMAL SCARRING .
== END | disposition home or self-care (01) ==
LOC: RADCTMAIN 10:59
PROVIDERS: ATTEND Internal Medicine Hematology & Oncology
DX: J43.9 Emphysema, unspecified (principal); J94.8 Other specified pleural conditions; E27.8 Other specified disorders of adrenal gland; C34.11 Malignant neoplasm of upper lobe, right bronchus or lung
CPT/HCPCS: 82565; 84520; 71260; 74177; 36415; Q9967

== ENCOUNTER → 2020-10-10 | Outpatient (CLI) | payer MEDICAID ==
[2020-10-10 13:02] LABS: African American GFR (CKD) >90 (>60 ml/min/1.73 sqM); Blood Urea Nitrogen 13 mg/dL (9-20); Non-African American GFR(CKD) >90 (>60 ml/min/1.73 sqM)
--- NOTE | 2020-10-10 15:10 | CT ---
EXAMINATION TYPE: CT ChestAbdPelvis w con DATE OF EXAM: 10/10/2020 COMPARISON: 07/17/2020 HISTORY: lung ca mets CT DLP: 1421 mGycm CONTRAST: CT scan of the chest, abdomen and pelvis is performed with Oral Contrast and with IV Contrast, patien t injected with 100 mL of Isovue 300. CT Chest: LUNGS: Left suprahilar mass measures 4.4 x 3.0 x 5.0 cm versus previous measurement of 3.8 x 2.9 x 4. 6 cm. No additional masses seen. Vague groundglass nodular densities left upper lobe measuring less t shrestha 4 mm totaling approximately 7 or 8 and number may be inflammatory or postinflammatory in nature. Nodules are difficult to exclude however. Severe upper lobe emphysematous change with bronchiectasis and parenchymal scarring. MEDIASTINUM: Thoracic aorta is of normal caliber. The heart is not enlarged. Right-sided tracheobro nchial adenopathy measures 2.2 cm. OTHER: No significant abnormality. CONTRAST CT ABDOMEN AND PELVIS FINDINGS: LIVER/GB: No calcified gallstones. No space occupying hepatic lesion. Biliary tree is of normal ca liber. PANCREAS: No inflammation. No distinct mass. SPLEEN: No splenic enlargement. No lesion seen. ADRENALS: Continued nodular thickening of the right adrenal gland measuring 2.7 x 1.7 cm. Left adrena l gland is unremarkable. KIDNEYS/BLADDER: No hydronephrosis. No nephrolithiasis. Exophytic hypoattenuating lesion upper pole left kidney has enlarged and measures 1.3 cm versus 8 mm previously. Mild wall thickening noted. Ult rasound correlation advised. BOWEL: Normal appendix. Normal bowel caliber. No inflammation. GENITAL ORGANS: No gross abnormality. LYMPH NODES: No greater than 1cm abdominal or pelvic lymph nodes are appreciated. AORTA: No significant abnormality. OSSEOUS STRUCTURES: Advanced degenerative changes throughout the lumbar spine. OTHER: No significant additional abnormality is seen. IMPRESSION: 1. Enlarging left suprahilar mass. 2. Vague areas of the groundglass nodularity left upper lobe may reflect inflammatory or postinflamma tory change versus metastatic disease. 3. Increasing right tracheobronchial adenopathy. 4. Suspect right adrenal metastatic disease.
== END | disposition home or self-care (01) ==
LOC: RADCTMAIN 12:31
PROVIDERS: ATTEND Internal Medicine Hematology & Oncology
DX: C34.11 Malignant neoplasm of upper lobe, right bronchus or lung (principal); R59.0 Localized enlarged lymph nodes
CPT/HCPCS: 82565; 84520; 71260; 74177; Q9967

== ENCOUNTER → 2020-12-11 | Outpatient (CLI) | payer MEDICAID ==
--- NOTE | 2020-12-11 12:54 | CT ---
EXAMINATION TYPE: CT ChestAbdPelvis w con DATE OF EXAM: 12/11/2020 COMPARISON: 10/10/2020 HISTORY: Lung cancer CT DLP: 571.60 mGycm Automated exposure control for dose reduction was used. CONTRAST: CT scan of the chest, abdomen and pelvis is performed with Oral Contrast and with IV Contrast, patien t injected with 100 ml mL of Isovue 300. FINDINGS: LUNGS: Left suprahilar mass measures 4.3 x 4 x 5 cm and previously measured 4.4 x 3.0 x 5.0 cm. No ad ditional masses seen. Extensive emphysematous changes are noted in the area of consolidation in the p eripheral margin of the left upper lobe. Measures approximately 3.5 x 2.5 cm. May be related to posti nflammatory or postinfectious etiology. Neoplastic process not included but felt less likely. A subpl eural nodularity is stable as previously noted. Vague groundglass nodules previously noted are not se en with certainty on today's exam. MEDIASTINUM: Aorta of normal caliber. Heart size normal. There is lymphadenopathy in the right paratr acheal region measuring short axis of 2.2 cm and stable. OTHER: No additional significant abnormality is seen. LIVER/GB: No significant abnormality is appreciated. PANCREAS: No significant abnormality is seen. SPLEEN: No significant abnormality is seen. ADRENALS: Stable 2.7 x 1.7 cm right adrenal mass. KIDNEYS: Stable 1.3 cm indeterminate mass involving the upper pole the left kidney.. BOWEL: No significant abnormality is seen. LYMPH NODES: No greater than 1 cm abdominal or pelvic lymph nodes are appreciated. OSSEOUS STRUCTURES: Hypertrophic and degenerative changes spine OTHER: Aorta of normal caliber. No free fluid or free air. IMPRESSION: 1. Essentially stable left hilar mass and mediastinal adenopathy. There is a new area of peripheral c onsolidation measuring 3.5 cm x 2.5 cm in the left upper lobe which could be postinflammatory or post infectious. Follow resolution recommended to exclude underlying neoplasm. 2. No new adenopathy. 3. Stable right adrenal mass therefore indeterminate upper pole 1.3 cm left renal lesion stable. Does not meet the criteria of simple cyst. 4. Extensive changes of COPD.
== END | disposition home or self-care (01) ==
LOC: RADCTMAIN 09:37
PROVIDERS: ATTEND Internal Medicine Hematology & Oncology
DX: C34.12 Malignant neoplasm of upper lobe, left bronchus or lung (principal); J44.9 Chronic obstructive pulmonary disease, unspecified; E27.9 Disorder of adrenal gland, unspecified
CPT/HCPCS: 71260; 74177; Q9967

== ENCOUNTER 2021-01-04 20:45 | Emergency (ER) | payer MEDICAID ==
[2021-01-04 20:50] VITALS: TEMP 97.6
[2021-01-04] MEDS ORDERED: SODIUM CHLORIDE 0.9% 1,000 ML IV STA (21:10)
--- NOTE | 2021-01-04 21:31 | ED ---
Nausea/Vomiting/Diarrhea HPI - General Chief complaint: Nausea/Vomiting/Diarrhea Stated complaint: Nausea Source: patient, family, RN notes reviewed, old records reviewed Mode of arrival: ambulatory Limitations: no limitations - History of Present Illness Initial comments: 55-year-old white male, alert and oriented 4, presents to the emergency room with sudden onset of nausea and vomiting for the past 5 days. Patient states on Thursday he had a tunafish sandwich and then after that he became nauseous with vomiting. Patient states he vomited food Initially but then emesis became mucoid. He is now having dry heaves every day about 6-8 times per day. denies any diarrhea or fevers. Patient denies any abdominal pain, back pain or hematochezia or hematemesis. He states his appetite has decreased. He did try chicken noodle soup but vomited right away today. He states that his urine has been dark in color today. He had a CT in December which revealed a mass in his left upper lobe which was diagnosed as likely infectious and prescribed amoxicillin for 10 days and steroids which he will finish of January 15 which is also when he will be rescheduled for his repeat CT with Dr. Lopez. Patient has medical history of adrenal cancer, GERD, and COPD. patient denies any dental surgeries. Patient's last chemotherapy was one year ago. Patient is on immunotherapy but it has been postponed while finishing his antibiotic and steroid. Patient states that his heart rate is elevated always when he comes to the emergency room. at bedside with the patient. MD complaint: nausea, vomiting -: days(s) (5) Description of Vomiting: food contents, other (Dry heaves) Associated Abdominal Pain: No Radiation: none Severity scale (1-10): 0 Improves with: none Worsens with: eating Context: recent antibiotic use (Finished antibiotics this week still taking steroids for the hyponatremia which pcp believed was infectious), other (History of adrenal cancer with a left hilar mass.immunotherapy last chemo one year ago) Associated Symptoms: malaise, shortness of breath, weakness - Related Data Home Medications Medication Instructions Recorded Confirmed Hydrocodone/Acetaminophen [[place] 1 tab PO Q6H PRN 04/19/19 05/06/19 10-325] Prochlorperazine [Compazine] 10 mg PO Q6H PRN 04/19/19 05/06/19 Ondansetron [Zofran] 4 mg PO Q6H PRN 05/06/19 05/06/19 Previous Rx's Medication Instructions Recorded ALPRAZolam [Xanax] 0.25 mg PO TID PRN 7 Days #21 tab 04/24/19 Famotidine [Pepcid] 20 mg PO BID #60 tab 04/24/19 Megestrol [Megace] 400 mg PO DAILY #100 ml 04/24/19 fentaNYL 50MCG/HR PATCH [Duragesic 1 patch TRANSDERM Q72H #5 patch 04/24/19 50MCG/HR] Amoxicillin/Potassium Clav 10 ml PO BID #140 ml 05/11/19 [Amox-Clav 400-57 mg/5 ml Susp] Allergies Allergy/AdvReac Type Severity Reaction Status Date / Time No Known Allergies Allergy Verified 01/04/21 20:47 Review of Systems ROS Statement: Those systems with pertinent positive or pertinent negative responses have been documented in the HPI. ROS Other: All systems not noted in ROS Statement are negative. Past Medical History Past Medical History: Cancer, GERD/Reflux Additional Past Medical History / Comment(s): adrenal mass X 2, lung cancer History of Any Multi-Drug Resistant Organisms: None Reported Past Surgical History: Hernia Repair Additional Past Surgical History / Comment(s): left thumb re-attached Past Anesthesia/Blood Transfusion Reactions: No Reported Reaction Past Psychological History: No Psychological Hx Reported Smoking Status: Current every day smoker Past Alcohol Use History: None Reported Past Drug Use History: Marijuana - Past Family History Father Family Medical History: Coronary Artery Disease (CAD) General Exam Limitations: no limitations General appearance: alert, in no apparent distress Head exam: Present: atraumatic, normocephalic, normal inspection Eye exam: Present: normal appearance, PERRL, EOMI. Absent: scleral icterus, conjunctival injection, periorbital swelling, periorbital tenderness Pupils: Present: normal accommodation ENT exam: Present: normal exam, normal oropharynx, mucous membranes moist Neck exam: Present: normal inspection, full ROM. Absent: tenderness, meningismus, lymphadenopathy, thyromegaly Respiratory exam: Present: normal lung sounds bilaterally. Absent: respiratory distress, wheezes, rales, rhonchi, stridor, chest wall tenderness, accessory muscle use, decreased breath sounds Cardiovascular Exam: Present: tachycardia, normal heart sounds GI/Abdominal exam: Present: soft, normal bowel sounds. Absent: distended, tenderness, guarding, rebound, rigid, mass Extremities exam: Present: normal inspection, full ROM, normal capillary refill. Absent: tenderness, pedal edema, joint swelling, calf tenderness Back exam: Present: normal inspection, full ROM, other (cyst noted to the left scapular area chronic). Absent: tenderness, CVA tenderness (R), CVA tenderness (L), muscle spasm, paraspinal tenderness, vertebral tenderness, rash noted Neurological exam: Present: alert, oriented X3, CN II-XII intact Expanded Patient oriented to: Present: person, place, time Speech: Present: fluid speech Cranial nerves: EOM's Intact: Normal, Gag Reflex: Normal, Tongue Deviation: Normal, Facial Sensation: Normal, Facial Palsy with Forehead Movement: Normal, Facial Palsy without Forehead Movement: Normal Motor strength exam: RUE: 5, LUE: 5, RLE: 5, LLE: 5 Eye Response: (4) open spontaneously Motor Response: (6) obeys commands Verbal Response: (5) oriented Elizabeth Total: 15 Psychiatric exam: Present: normal affect, normal mood Skin exam: Present: warm, dry, intact, normal color. Absent: rash Course Vital Signs 01/04/21 01/04/21 20:47 21:39 Temperature 97.6 F Pulse Rate 125 H 98 Respiratory 20 Rate Blood Pressure 113/85 O2 Sat by Pulse 98 Oximetry Medical Decision Making - Medical Decision Making KUB x-ray shows no intestinal structure pneumoperitoneum versus fecal pattern that is normal and there is no evidence of mass. Abdomen is soft and nontender. There is no evidence of hernia or mass. Patient denies back pain. WBC count is 11.5, hemoglobin and hematocrit is 14 and 41. Patient denies any hematochezia or hematemesis. Patient's BUN is 25 creatinine is 1.01, urine ketones are 1+ likely due to dehydration. Patient's nausea resolved with Zofran and 2 IV fluid bolus of .9NS. Patient has an appointment for repeat CAT scan on January [address] Lopez to reassess the left upper lobe lesion once he finishes his steroid. Patient is agreeable to this plan of care. Case discussed with Dr. Chery. - Lab Data Result diagrams: 01/04/21 21:29 01/04/21 21:29 Lab Results 01/04/21 01/04/21 01/04/21 Range/Units 21:29 21:29 21:29 WBC 11.5 H (3.8-10.6) k/uL RBC 4.94 (4.30-5.90) m/uL Hgb 14.6 (13.0-17.5) gm/dL Hct 41.7 (39.0-53.0) % MCV 84.4 (80.0-100.0) fL MCH 29.5 (25.0-35.0) pg MCHC 35.0 (31.0-37.0) g/dL RDW 13.3 (11.5-15.5) % Plt Count 357 (150-450) k/uL MPV 6.3 Neutrophils % 77 % Lymphocytes % 15 % Monocytes % 5 % Eosinophils % 1 % Basophils % 1 % Neutrophils # 8.9 H (1.3-7.7) k/uL Lymphocytes # 1.7 (1.0-4.8) k/uL Monocytes # 0.6 (0-1.0) k/uL Eosinophils # 0.1 (0-0.7) k/uL Basophils # 0.1 (0-0.2) k/uL Sodium 130 L (137-145) mmol/L Potassium 5.0 (3.5-5.1) mmol/L Chloride 95 L (98-107) mmol/L Carbon Dioxide 21 L (22-30) mmol/L Anion Gap 14 mmol/L BUN 25 H (9-20) mg/dL Creatinine 1.01 (0.66-1.25) mg/dL Est GFR (CKD-EPI)AfAm >90 (>60 ml/min/1.73 sqM) Est GFR (CKD-EPI)NonAf 84 (>60 ml/min/1.73 sqM) Glucose 118 H (74-99) mg/dL Calcium 10.2 (8.4-10.2) mg/dL Total Bilirubin 0.6 (0.2-1.3) mg/dL AST 18 (17-59) U/L ALT 21 (4-49) U/L Alkaline Phosphatase 142 H (38-126) U/L Total Protein 7.9 (6.3-8.2) g/dL Albumin 4.6 (3.5-5.0) g/dL Amylase 58 (30-110) U/L Lipase 58 (23-300) U/L Urine Color Yellow Urine Appearance Cloudy (Clear) Urine pH 6.0 (5.0-8.0) Ur Specific [place] 1.030 (1.001-1.035) Urine Protein Trace H (Negative) Urine Glucose (UA) Negative (Negative) Urine Ketones 1+ H (Negative) Urine Blood Trace H (Negative) Urine Nitrite Negative (Negative) Urine Bilirubin Negative (Negative) Urine Urobilinogen <2.0 (<2.0) mg/dL Ur Leukocyte Esterase Negative (Negative) Urine RBC 7 H (0-5) /hpf Urine WBC 2 (0-5) /hpf Hyaline Casts 9 H (0-2) /lpf Urine Mucus Many H (None) /hpf - EKG Data EKG shows normal: sinus rhythm, intervals (Ventricular rate of 107, TX interval of 0.132, QRS of 0.70, QTC of 0.395; tachycardia with right atrial enlargement) When compared to previous EKG there are: no significant change (05/06/2019) Disposition Clinical Impression: Nausea and vomiting, Dehydration Disposition: HOME SELF-CARE Condition: Fair Instructions (If sedation given, give patient instructions): Acute Nausea and Vomiting (ED) Additional Instructions: eat small meals throughout the day. Increase your fluid intake. Continue your medication as prescribed by Dr. Lopez and keep your appointment as scheduled. Is patient prescribed a controlled substance at d/c from ED?: No Referrals: None,Stated [Primary Care Provider] - 1-2 days Time of Disposition: 22:57
[2021-01-04] MEDS ORDERED: ONDANSETRON 4 MG/2 ML VIAL IVP STA ×2 (21:34→22:51)
[2021-01-04 21:44] LABS: Basophils # (A) 0.1 k/uL (0-0.2); Basophils % (A) 1 %; Eosinophils # (A) 0.1 k/uL (0-0.7); Eosinophils % (A) 1 %; HCT 41.7 % (39.0-53.0); HGB 14.6 gm/dL (13.0-17.5); Lymphocytes # (A) 1.7 k/uL (1.0-4.8); Lymphocytes % (A) 15 %; MCH 29.5 pg (25.0-35.0); MCV 84.4 fL (80.0-100.0); Mean Platelet Volume 6.3; Monocytes # (A) 0.6 k/uL (0-1.0); Monocytes % (A) 5 %; Neutrophils # (A) 8.9 k/uL (1.3-7.7); Neutrophils % (A) 77 %; Platelet Count 357 k/uL (150-450); RBC 4.94 m/uL (4.30-5.90); RDW 13.3 % (11.5-15.5); WBC 11.5 k/uL (3.8-10.6)
--- NOTE | 2021-01-04 21:51 | XR ---
EXAMINATION TYPE: XR KUB DATE OF EXAM: 01/04/2021 COMPARISON: 12/24/2018 HISTORY: Nausea and vomiting TECHNIQUE: 2 views upright FINDINGS: There is no sign of intestinal obstruction or pneumoperitoneum. Fecal pattern is normal. Th ere is no evidence of a mass. There are no pathologic calcifications over the kidneys. Lung bases are clear. There is intact bony structures. IMPRESSION: Nonacute abdomen. No change.
[2021-01-04 22:00] LABS: ALT 21 U/L (4-49); AST 18 U/L (17-59); African American GFR (CKD) >90 (>60 ml/min/1.73 sqM); Albumin 4.6 g/dL (3.5-5.0); Alkaline Phosphatase 142 U/L (38-126); Amylase 58 U/L (30-110); Anion Gap 14 mmol/L; Blood Urea Nitrogen 25 mg/dL (9-20); Calcium 10.2 mg/dL (8.4-10.2); Carbon Dioxide 21 mmol/L (22-30); Chloride 95 mmol/L (98-107); Glucose 118 mg/dL (74-99); Lipase 58 U/L (23-300); Non-African American GFR(CKD) 84 (>60 ml/min/1.73 sqM); Sodium 130 mmol/L (137-145); Total Bilirubin 0.6 mg/dL (0.2-1.3); Total Protein 7.9 g/dL (6.3-8.2)
[2021-01-04 22:47] LABS: Appearance,Urine Cloudy (Clear); Bilirubin,Urine Negative (Negative); Blood,Urine Trace (Negative); Color,Urine Yellow; Glucose,Urine (UA) Negative (Negative); Hyaline Casts,Urine 9 /lpf (0-2); Ketones,Urine 1+ (Negative); Leukocyte Esterase,Urine Negative (Negative); Mucus,Urine Many /hpf; Nitrite,Urine Negative (Negative); Protein,Urine Trace (Negative); RBC,Urine 7 /hpf (0-5); Urobilinogen,Urine <2.0 mg/dL (<2.0); WBC,Urine 2 /hpf (0-5)
[2021-01-04] MEDS ORDERED: FAMOTIDINE 20 MG/2 ML VIAL IV STA (22:51)
[2021-01-04 23:23] VITALS: BP 142/92; PULSE 88; RESP 16
== END 2021-01-04 23:23 | disposition home or self-care (01) ==
LOC: EC 20:45
DX: R11.2 Nausea with vomiting, unspecified (principal); E86.0 Dehydration; R19.7 Diarrhea, unspecified; J44.9 Chronic obstructive pulmonary disease, unspecified; K21.9 Gastro-esophageal reflux disease without esophagitis; F17.200 Nicotine dependence, unspecified, uncomplicated; F12.90 Cannabis use, unspecified, uncomplicated
CPT/HCPCS: 36415; 93005; 80053; 82150; 83690; 85025; 81001; 74018; 99284; 96374; 96375; 96376; 96361; J2405

== ENCOUNTER 2021-01-10 21:39 | Emergency (ER) | payer MEDICAID ==
[2021-01-10 21:57] VITALS: TEMP 98.7
[2021-01-10] MEDS ORDERED: METOCLOPRAMIDE 5 MG/ML 2 ML VIAL IVP STA (22:35)
[2021-01-10] MEDS ORDERED: HYDROmorphone 0.5 MG/0.5 ML SYRINGE IVP STA (22:39)
[2021-01-10] MEDS ORDERED: SODIUM CHLORIDE 0.9% 500 ML 500 ML IV STA (22:39)
--- NOTE | 2021-01-10 22:43 | ED ---
General Adult HPI - General Chief complaint: Abdominal Pain Stated complaint: Abd Pain,Hiccups Time Seen by Provider: 01/10/21 22:01 Source: patient Mode of arrival: ambulatory - History of Present Illness Initial comments: This patient is a 55-year-old man with history of stage IV metastatic lung cancer. He states that he has been having proximally one week of persistent hiccups. Patient states that now when they flareup he has some sharp right- sided trunk pain. He indicates both the right chest and the right side of the abdomen just above and below the costal margin. He denies fever or chills. No change in his cough. No hemoptysis. No dyspnea. He states that the pickups when they really flareup have caused him to have a couple of episodes of vomiting. He has not been able to eat very much over the past week as when he tries to this seems to flareup the symptoms. The patient has not tried any medication specifically for the symptoms. Onset/Timin -: week(s) Location: chest, abdomen Radiation: non-radiation Quality: sharp Consistency: intermittent Improves with: none Worsens with: other (hiccups) Associated Symptoms: nausea/vomiting Treatments Prior to Arrival: none - Related Data Home Medications Medication Instructions Recorded Confirmed Hydrocodone/Acetaminophen [[place] 1 tab PO Q6H PRN 04/19/19 05/06/19 10-325] Prochlorperazine [Compazine] 10 mg PO Q6H PRN 04/19/19 05/06/19 Ondansetron [Zofran] 4 mg PO Q6H PRN 05/06/19 05/06/19 Previous Rx's Medication Instructions Recorded ALPRAZolam [Xanax] 0.25 mg PO TID PRN 7 Days #21 tab 04/24/19 Famotidine [Pepcid] 20 mg PO BID #60 tab 04/24/19 Megestrol [Megace] 400 mg PO DAILY #100 ml 04/24/19 fentaNYL 50MCG/HR PATCH [Duragesic 1 patch TRANSDERM Q72H #5 patch 04/24/19 50MCG/HR] Amoxicillin/Potassium Clav 10 ml PO BID #140 ml 05/11/19 [Amox-Clav 400-57 mg/5 ml Susp] Baclofen [Lioresal] 10 mg PO TID PRN #15 tablet 01/11/21 Metoclopramide [Reglan] 10 mg PO Q6H PRN #15 tab 01/11/21 chlorproMAZINE [Thorazine] 25 mg PO TID PRN #12 tablet 01/11/21 Allergies Allergy/AdvReac Type Severity Reaction Status Date / Time No Known Allergies Allergy Verified 01/10/21 21:57 Review of Systems ROS Statement: Those systems with pertinent positive or pertinent negative responses have been documented in the HPI. ROS Other: All systems not noted in ROS Statement are negative. Constitutional: Denies: fever, chills Respiratory: Denies: cough, dyspnea Cardiovascular: Reports: as per HPI, chest pain. Denies: palpitations, orthopnea Gastrointestinal: Reports: as per HPI, abdominal pain, nausea, vomiting. Denies: diarrhea, constipation, hematemesis Genitourinary: Denies: dysuria, hematuria Musculoskeletal: Denies: back pain Skin: Denies: rash Neurological: Denies: headache Past Medical History Past Medical History: Cancer, GERD/Reflux Additional Past Medical History / Comment(s): adrenal mass X 2, lung cancer History of Any Multi-Drug Resistant Organisms: None Reported Past Surgical History: Hernia Repair Additional Past Surgical History / Comment(s): left thumb re-attached Past Anesthesia/Blood Transfusion Reactions: No Reported Reaction Past Psychological History: No Psychological Hx Reported Smoking Status: Current every day smoker Past Alcohol Use History: None Reported Past Drug Use History: Marijuana - Past Family History Father Family Medical History: Coronary Artery Disease (CAD) General Exam General appearance: alert, in no apparent distress Head exam: Present: atraumatic, normocephalic Eye exam: Present: normal appearance. Absent: scleral icterus, conjunctival injection Neck exam: Present: normal inspection Respiratory exam: Present: normal lung sounds bilaterally. Absent: respiratory distress, wheezes, rales, rhonchi, stridor, chest wall tenderness, accessory muscle use Cardiovascular Exam: Present: regular rate, normal rhythm, normal heart sounds. Absent: systolic murmur, diastolic murmur, rubs, gallop GI/Abdominal exam: Present: soft. Absent: distended, tenderness, guarding, rebound, rigid Extremities exam: Present: normal inspection, normal capillary refill. Absent: pedal edema, calf tenderness Back exam: Present: normal inspection. Absent: CVA tenderness (R), CVA tenderness (L) Neurological exam: Present: alert Skin exam: Present: warm, dry, intact. Absent: rash Course Vital Signs 01/10/21 01/10/21 01/10/21 21:53 22:57 23:53 Temperature 98.7 F Pulse Rate 119 H 100 102 H Respiratory 18 20 20 Rate Blood Pressure 128/82 125/89 124/82 O2 Sat by Pulse 98 95 96 Oximetry 01/11/21 01/11/21 01/11/21 00:15 01:29 02:05 Temperature Pulse Rate 114 H 117 H 125 H Respiratory 20 20 20 Rate Blood Pressure 113/67 119/80 105/77 O2 Sat by Pulse 95 97 95 Oximetry 01/11/21 01/11/21 03:02 04:21 Temperature Pulse Rate 124 H 126 H Respiratory 20 20 Rate Blood Pressure 119/78 117/77 O2 Sat by Pulse 95 96 Oximetry Medical Decision Making - Medical Decision Making Patient's 55-year-old man with persistent hiccups. He did require number of rounds of medication to relieve the symptoms he was having. Following this patient is feeling well and would like to go home. Discussed appropriate further care and follow-up - Lab Data Result diagrams: 01/10/21 22:54 01/10/21 22:54 Lab Results 01/10/21 01/10/21 Range/Units 22:54 22:54 WBC 10.9 H (3.8-10.6) k/uL RBC 4.19 L (4.30-5.90) m/uL Hgb 12.3 L (13.0-17.5) gm/dL Hct 35.7 L (39.0-53.0) % MCV 85.2 (80.0-100.0) fL MCH 29.3 (25.0-35.0) pg MCHC 34.4 (31.0-37.0) g/dL RDW 13.4 (11.5-15.5) % Plt Count 339 (150-450) k/uL MPV 6.8 Neutrophils % 76 % Lymphocytes % 14 % Monocytes % 6 % Eosinophils % 3 % Basophils % 1 % Neutrophils # 8.3 H (1.3-7.7) k/uL Lymphocytes # 1.5 (1.0-4.8) k/uL Monocytes # 0.6 (0-1.0) k/uL Eosinophils # 0.3 (0-0.7) k/uL Basophils # 0.1 (0-0.2) k/uL Sodium 127 L (137-145) mmol/L Potassium 4.7 (3.5-5.1) mmol/L Chloride 92 L (98-107) mmol/L Carbon Dioxide 23 (22-30) mmol/L Anion Gap 12 mmol/L BUN 13 (9-20) mg/dL Creatinine 0.59 L (0.66-1.25) mg/dL Est GFR (CKD-EPI)AfAm >90 (>60 ml/min/1.73 sqM) Est GFR (CKD-EPI)NonAf >90 (>60 ml/min/1.73 sqM) Glucose 114 H (74-99) mg/dL Calcium 9.4 (8.4-10.2) mg/dL Total Bilirubin 0.6 (0.2-1.3) mg/dL AST 22 (17-59) U/L ALT 30 (4-49) U/L Alkaline Phosphatase 129 H (38-126) U/L Total Protein 7.0 (6.3-8.2) g/dL Albumin 3.9 (3.5-5.0) g/dL Disposition Clinical Impression: Hiccups Disposition: HOME SELF-CARE Condition: Good Prescriptions: Baclofen [Lioresal] 10 mg PO TID PRN #15 tablet PRN Reason: Cough Metoclopramide [Reglan] 10 mg PO Q6H PRN #15 tab PRN Reason: Cough chlorproMAZINE [Thorazine] 25 mg PO TID PRN #12 tablet PRN Reason: Cough Is patient prescribed a controlled substance at d/c from ED?: No Referrals: None,Stated [Primary Care Provider] - 1-2 days
[2021-01-10 23:00] VITALS: RESP 20
[2021-01-10] MEDS ORDERED: HYDROmorphone 1 MG/ML 1 ML SYRINGE IVP STA (23:15)
[2021-01-10] MEDS ORDERED: chlorproMAZINE 50 MG in SODIUM CHLORIDE 0.9% 50 ML IV SCH (23:15)
[2021-01-10 23:17] LABS: Basophils # (A) 0.1 k/uL (0-0.2); Basophils % (A) 1 %; Eosinophils # (A) 0.3 k/uL (0-0.7); Eosinophils % (A) 3 %; HCT 35.7 % (39.0-53.0); HGB 12.3 gm/dL (13.0-17.5); Lymphocytes # (A) 1.5 k/uL (1.0-4.8); Lymphocytes % (A) 14 %; MCH 29.3 pg (25.0-35.0); MCHC 34.4 g/dL (31.0-37.0); MCV 85.2 fL (80.0-100.0); Mean Platelet Volume 6.8; Monocytes # (A) 0.6 k/uL (0-1.0); Monocytes % (A) 6 %; Neutrophils # (A) 8.3 k/uL (1.3-7.7); Neutrophils % (A) 76 %; Platelet Count 339 k/uL (150-450); RBC 4.19 m/uL (4.30-5.90); RDW 13.4 % (11.5-15.5); WBC 10.9 k/uL (3.8-10.6)
[2021-01-10 23:50] LABS: ALT 30 U/L (4-49); AST 22 U/L (17-59); African American GFR (CKD) >90 (>60 ml/min/1.73 sqM); Albumin 3.9 g/dL (3.5-5.0); Alkaline Phosphatase 129 U/L (38-126); Anion Gap 12 mmol/L; Blood Urea Nitrogen 13 mg/dL (9-20); Calcium 9.4 mg/dL (8.4-10.2); Carbon Dioxide 23 mmol/L (22-30); Chloride 92 mmol/L (98-107); Glucose 114 mg/dL (74-99); Non-African American GFR(CKD) >90 (>60 ml/min/1.73 sqM); Potassium 4.7 mmol/L (3.5-5.1); Sodium 127 mmol/L (137-145); Total Bilirubin 0.6 mg/dL (0.2-1.3)
[2021-01-11] MEDS ORDERED: chlorproMAZINE 50 MG in SODIUM CHLORIDE 0.9% 50 ML IV SCH (01:30)
[2021-01-11] MEDS: chlorproMAZINE 50 MG in SODIUM CHLORIDE 0.9% 50 ML IV SCH ×2 (02:29→02:33)
[2021-01-11] MEDS ORDERED: METOCLOPRAMIDE 5 MG/ML 2 ML VIAL IVP STA (03:04)
[2021-01-11] MEDS ORDERED: BACLOFEN 10 MG TAB PO STA (03:05)
[2021-01-11 04:22] VITALS: BP 117/77; PULSE 126
== END 2021-01-11 04:41 | disposition home or self-care (01) ==
LOC: EC 21:39
DX: R06.6 Hiccough (principal); R10.9 Unspecified abdominal pain; R07.89 Other chest pain; R11.2 Nausea with vomiting, unspecified; R05 Cough; K21.9 Gastro-esophageal reflux disease without esophagitis; F12.90 Cannabis use, unspecified, uncomplicated; F17.200 Nicotine dependence, unspecified, uncomplicated; Z79.899 Other long term (current) drug therapy
CPT/HCPCS: 36415; 80053; 85025; 99285; 96365; 96375 ×2; 96376 ×2; 96361; J2765 ×2; J3230; J1170 ×2